=== PATIENT | male | born 1955 | race Two or more races ===

== ENCOUNTER 2019-01-14 12:21 | Inpatient (IN) | payer OTHER ==
[2019-01-14] MEDS ORDERED: NS 0.9% 1000 ML** 1,000 ML IV ONE (12:31)
--- NOTE | 2019-01-14 12:45 | ED ---
HPI Chest Pain - HPI Summary HPI Summary: A 63 y/o male brought in by [facility] ambulance presents to [facility] with a chief complaint of chest pain since 01/11/19. At triage the patient rated his pain as a 0/10 in severity. Per EMS, the patient c/o N/V, SOB and cough. He reports that his legs swelling are normal for him, but his left leg is colored darker than usual. His left leg is usually darker than his right leg after he had surgery on it, but now it is even darker than usual. The patient has been coughing up phlegm. He has a Hx of liver and cardiac disease, taking NTG when he has his chest pain. Deep breaths aggravate his pain. He denies taking NTG on 01/14/19. His PCP is Dr. Molina at [facility]. - History of Current Complaint Hx Obtained From: Patient, Family/Reading Intervention Teacher, EMS Onset/Duration: Started Days Ago, Still Present Timing: Constant, Lasting Days Initial Severity: Mild Current Severity: Mild Pain Intensity: 0 Pain Scale Used: 0-10 Numeric Chest Pain Location: Diffuse Chest Pain Radiates: No Character: Cough, Productive Aggravating Factor(s): Nothing Alleviating Factor(s): Nothing Associated Signs and Symptoms: Positive: Shortness of Breath, Swelling, Nausea, Cough, Productive Cough, Vomiting - Allergy/Home Medications Allergies/Adverse Reactions: Allergies Allergy/AdvReac Type Severity Reaction Status Date / Time No Known Allergies Allergy Verified 10/12/13 04:43 Home Medications: Home Medications Azelastine 0.15% NASAL(NF) [Astepro 0.15% NASAL (NF)] 1 spray BOTH NARES DAILY PRN 01/14/19 [History Confirmed 01/14/19] Calcipotriene 0.005 % TOPICAL DAILY 01/14/19 [History Confirmed 01/14/19] Cholecalciferol TAB* [Vitamin D TAB*] 2,000 units PO DAILY 01/14/19 [History Confirmed 01/14/19] Fluocinonide 0.05% CM (NF) [Lidex 0.05% CREAM (NF)] 1 applic TOPICAL DAILY 01/14 [History Confirmed 01/14/19] Fluticasone Furoate [Arnuity Ellipta] 100 mcg INH DAILY 01/14/19 [History Confirmed 01/14/19] Folic Acid TAB* [Folvite TAB*] 1 mg PO DAILY 01/14/19 [History Confirmed ] Gabapentin CAP(*) [Neurontin 300 CAP(*)] 300 mg PO QPM 01/14/19 [History Confirmed 01/14/19] LORazepam TAB(*) [Ativan 0.5 MG TAB (*)] 0.5 - 1 mg PO TID PRN 01/14/19 [ History Confirmed 01/14/19] Multivitamins/Minerals TAB* [Theragran/minerals TAB*] 1 tab PO DAILY 01/14/19 [ History Confirmed 01/14/19] Nitroglycerin TAB 0.3 MG* 0.3 mg SL Q5M PRN 01/14/19 [History Confirmed 01/14/19 ] Sertraline* [Zoloft*] 25 mg PO DAILY 01/14/19 [History Confirmed 01/14/19] Ursodiol 250 mg PO DAILY 01/14/19 [History Confirmed 01/14/19] Vitamin B Complex CAP* [B Complex CAP*] 1 cap PO DAILY 01/14/19 [History Confirmed 01/14/19] amLODIPine TAB* [Norvasc 5 mg TAB*] 2.5 mg PO DAILY 01/14/19 [History Confirmed 01/14/19] fentaNYL PATCH 25 MCG/HR* [Duragesic PATCH 25 Mcg/Hr*] 25 mcg TRANSDERM Q72H 03/30 [History Confirmed 01/14/19] PMH/Surg Hx/FS Hx/Imm Hx Endocrine/Hematology History: Reports: Hx Blood Disorders - thrombocytopenia, Hx Unexplained Bleeding - epistaxis Denies: Hx Diabetes Cardiovascular History: Reports: Hx Angina, Hx Hypertension Respiratory History: Reports: Other Respiratory Problems/Disorders - Coughing, Pt states hx of SOB. Denies: Hx Asthma, Hx Chronic Obstructive Pulmonary Disease (COPD) GI History: Reports: Hx Gastroesophageal Reflux Disease, Other GI Disorders - esophageal varacies Musculoskeletal History: Reports: Hx Fibromyalgia - Mostly in legs Neurological History: Reports: Hx Seizures - Surgical History Surgery Procedure, Year, and Place: banding for esophageal varacies Infectious Disease History: No Infectious Disease History: Denies: Traveled Outside the [place] in Last 30 Days - Family History Known Family History: Negative: Blood Disorder - Social History Alcohol Use: No current alcohol use Substance Use Type: Reports: None Hx Tobacco Use: Yes Amount Used/How Often: 1/2 pk per day Have You Smoked in the Last Year: Yes Review of Systems Positive: Chest Pain Positive: Shortness Of Breath, Cough Positive: Vomiting, Nausea Positive: Edema, Other - Positive: dark left leg All Other Systems Reviewed And Are Negative: Yes Physical Exam - Summary Physical Exam Summary: Appearance: The patient is well-nourished in no acute distress and in no acute pain. Skin: The skin is warm and dry and skin color reflects adequate perfusion. HEENT: The head is normocephalic and atraumatic. The pupils are equal and reactive. The conjunctivae are clear and without drainage. Nares are patent and without drainage. Mouth reveals moist mucous membranes and the throat is without erythema and exudate. The external ears are intact. The ear canals are patent and without drainage. The tympanic membranes are intact. Neck: The neck is supple with full range of motion and non-tender. There are no carotid bruits. There is no neck vein distension. Respiratory: Chest is non-tender. Coarse crackles and rhonchi right lung. Cardiovascular: Heart is regular rate and rhythm. There is no murmur or rub auscultated. Pulses are symmetrical and equal. Abdomen: The abdomen is soft and non-tender. There are normal bowel sounds heard in all four quadrants and there is no organomegaly palpated. Musculoskeletal: There is no back tenderness noted. Extremities are non-tender with full range of motion. Bilateral lower extremities are edematous, left leg purpleish no blanching. Neurological: Patient is alert and oriented to person, place and time. The patient has symmetrical motor strength in all four extremities. Cranial nerves are grossly intact. Deep tendon reflexes are symmetrical and equal in all four extremities. Psychiatric: The patient has an appropriate affect and does not exhibit any anxiety or depression. Triage Information Reviewed: Yes Vital Signs On Initial Exam: Initial Vitals Temp Pulse Resp BP Pulse Ox 99.5 F 81 16 178/89 91 01/14/19 12:37 01/14/19 12:37 01/14/19 12:37 01/14/19 12:37 01/14/19 12:37 Vital Signs Reviewed: Yes Diagnostics - Vital Signs Vital Signs Temp Pulse Resp BP Pulse Ox 01/14/19 12:37 99.5 F 81 16 178/89 91 - Laboratory Result Diagrams: 01/14/19 12:38 01/14/19 12:38 Lab Statement: Any lab studies that have been ordered have been reviewed, and results considered in the medical decision making process. - Radiology CXR Radiology Interpretation Completed By: Radiologist Summary of Radiographic Findings: LOW LUNG VOLUMES, SMALL BIBASILAR INFILTRATES SUGGESTIVE OF ATELECTASIS. ED physician has reviewed this imaging report. 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 He apparently has been feeling weak for a few days not eating well and then today developed some right-sided pleuritic chest pain. He is also somewhat confused according to the daughter. He has a history of alcoholic cirrhosis. He was found to have an increase in the elevation of his bilirubin, an ammonia of the 150 and a thrombocytopenia of 26. Hospitalist service was asked to evaluate him for a likely hepatic encephalopathy. - Diagnoses Provider Diagnoses: Hepatic encephalopathy - Provider Notifications Discussed Care Of Patient With: Garrett Winkler Time Discussed With Above Provider: 15:20 Instructed by Provider To: Admit As Inpatient Discharge - Sign-Out/Discharge Documenting (check all that apply): Patient Departure - admit Patient Received Moderate/Deep Sedation with Procedure: No - Discharge Plan Condition: Fair Disposition: ADMITTED TO [facility] Referrals: Jamar Molina MD [Primary Care Provider] - - Billing Disposition and Condition Condition: FAIR Disposition: Admitted to [facility] - Attestation Statements Document Initiated by Jacquelineibheidi: Yes Documenting Scribe: Harrison Monk Provider For Whom Todd is Documenting (Include Credential): Kenn Padilla MD Scribe Attestation: I, Harrison Monk, scribed for Kenn Padilla MD on 01/14/19 at 1734. Scribe Documentation Reviewed: Yes Provider Attestation: The documentation as recorded by the Harrison duncan accurately reflects the service I personally performed and the decisions made by me, Kenn Padilla MD Status of Scribe Document: Viewed
[2019-01-14 12:47] LABS: Hematocrit 42 % (42-52); Hemoglobin 14.3 g/dl (14.0-18.0); Mean Corpuscular HGB Conc 34 g/dl (31-36); Mean Corpuscular Hemoglobin 31 pg (27-31); Mean Corpuscular Volume 92 fL (80-94); Red Blood Count 4.56 10^6/ul (4.00-5.40); Red Cell Distribution Width 18 % (10.5-15); White Blood Count 3.5 10^3/ul (3.5-10.8)
[2019-01-14 12:51] LABS: INR 2.36 (0.77-1.02)
[2019-01-14 13:03] LABS: ALT 20 U/L (7-52); AST 88 U/L (13-39); Albumin 3.6 g/dL (3.2-5.2); Albumin/Globulin Ratio 1.1 (1-3); Alkaline Phosphatase 97 U/L (34-104); Anion Gap 8 mmol/L (2-11); BUN/Creatinine Ratio 20.3 (8-20); Blood Urea Nitrogen 16 mg/dL (6-24); C Reactive Protein 11.28 mg/L (<8.01); CO2 Carbon Dioxide 25 mmol/L (22-32); Calcium 8.8 mg/dL (8.6-10.3); Chloride 106 mmol/L (101-111); EGFR African American 120.7 (>60); EGFR Non-African American 99.7 (>60); Globulin 3.2 g/dL (2-4); Glucose 158 mg/dL (70-100); Magnesium 1.2 mg/dL (1.9-2.7); Potassium 3.1 mmol/L (3.5-5.0); Sodium 139 mmol/L (135-145); Total Protein 6.8 g/dL (6.4-8.9)
[2019-01-14 13:04] LABS: Troponin I 0.01 ng/mL (<0.04)
[2019-01-14] MEDS ORDERED: Thiamine IV* 100 MG, Folic Acid IV* 1 MG, Multiple Vitamin IV ADULT* 10 ML in NS 0.9% 1... IV ONE (13:13)
[2019-01-14] MEDS ORDERED: Folic Acid IV* 1 MG, Multiple Vitamin IV ADULT* 10 ML in NS 0.9% 1000 ML** 1,000 ML IV ONE ×4 (13:19)
[2019-01-14 13:26] LABS: ABS Basophils 0 10^3/ul (0-0.2); ABS Eosinophils 0 10^3/ul (0-0.6); ABS Lymphocytes 0.9 10^3/ul (1.0-4.8); ABS Monocytes 0.3 10^3/ul (0-0.8); ABS Neutrophils 2.2 10^3/ul (1.5-7.7); ABS Nucleated RBC 0 10^3/ul; Eosinophil % 1.2 %; Lymphocyte % 25.9 %; Mean Platelet Volume 7.7 fL (7.4-10.4); Nucleated Red Blood Cells % 0.1; Platelet Count 26 10^3/ul (150-450)
[2019-01-14] MEDS ORDERED: Magnesium Sulfate 1 GM IV* 1 GM/100 ML BAG IV ONE (13:41)
[2019-01-14 13:44] LABS: TSH (Thyroid Stimulating Horm) 0.55 mcIU/mL (0.34-5.60)
[2019-01-14] MEDS ORDERED: Thiamine TAB* 100 MG TAB PO ONE (14:00)
[2019-01-14 15:45] LABS: Urine Appearance Clear; Urine Bacteria Absent (Absent); Urine Bilirubin Negative (Negative); Urine Blood 1+ (Negative); Urine Color Amber; Urine Glucose 1+(50 mg/dL) (Negative); Urine Ketones Negative (Negative); Urine Nitrite Negative (Negative); Urine Protein Negative (Negative); Urine Red Blood Cell 2+(6-10/hpf) (Absent); Urine Specific Gravity 1.019 (1.010-1.030); Urine Urobilinogen Positive (Negative); Urine White Blood Cell Trace(0-5/hpf) (Absent)
[2019-01-14] MEDS ORDERED: Ondansetron INJ* 2 MG/ML VIAL IV PRN (16:36)
[2019-01-14] MEDS ORDERED: Furosemide IV* 10 MG/ML VIAL (40 MG) IV ONE (16:43)
[2019-01-14] MEDS ORDERED: hydrALAZINE IV* 20 MG/ML VIAL IV SLOW PU PRN (16:43)
[2019-01-14] MEDS ORDERED: LORazepam TAB(*) 0.5 MG PO PRN (16:53)
[2019-01-14] MEDS: KCL 20 MEQ/100 ML IVPREMIX* 20 MEQ/100 ML BAG IV SCH (17:07)
[2019-01-14] MEDS ORDERED: Albuterol/Ipratropium NEB.SOL* Albuterol 2.5 MG/Ipratropium 0.5 MG 3 ML INH PRN (17:21)
[2019-01-14] MEDS: fentaNYL PATCH 25 MCG/HR TRANSDERM SCH ×2 (17:40→21:25)
[2019-01-14 18:12] LABS: Influenza A Molecular NEGATIVE (Negative); Influenza B Molecular NEGATIVE (Negative)
[2019-01-14] MEDS: Gabapentin CAP(*) 300 MG PO SCH (18:41)
--- NOTE | 2019-01-14 19:51 | HP ---
CC: Dr. Jamar Molina * HISTORY AND PHYSICAL: DATE OF ADMISSION: 01/14/19 PRIMARY CARE PROVIDER: Dr. Jamar Molina. ATTENDING PHYSICIAN: Dr. Garrett Winkler * (dictated by Seble Meyer NP). CHIEF COMPLAINT: Shortness of breath for 3 days. HISTORY OF PRESENT ILLNESS: Mr. Mcclure is a 63-year-old male with past medical history of alcoholic cirrhosis, COPD, hypertension, CAD, and chronic back pain who presents to the emergency room today with complaints of 3 days of shortness of breath and chest pain. He is accompanied by his daughter, who provides most of the history. She reports that it is typical for him to have some chest discomfort when taking deep breaths and this has been going on for a number of years. She states that approximately 3 days ago, the patient started vomiting and started to appear ill. He vomited again yesterday and then today as well. During this time, he has had decreased appetite. He tells her that his chest feels tight and when he takes a deep breath he has a sharp pain. She feels as though his symptoms got particularly worse yesterday and so she brought him to the emergency room today. She does admit that she has not been giving him his typical medications since Sunday, except for oxycodone and lorazepam, so he has not received his antihypertensives or his lactulose. She has noticed increased edema in his lower extremities. Additionally, she reports that his left lower extremity typically has a light brown discoloration , though she feels that discoloration is worse at this point. She has noticed increased confusion over the last few days and possibly even some hallucinations. She does report that the other day his blood pressure was around 180/80 and he did suffer from a nosebleed at that time. He has not been wearing his fentanyl patch for the last few days as she removed it and did not replace it. She does note that he does have some confusion at baseline, though feels as though he is significantly worse than his baseline. She was concerned that his symptoms were persistent and so she brought him to the emergency room. In the emergency room, the patient was noted to be hypertensive with systolic pressures into the 170s. He had lab work which revealed an elevated INR, hypokalemia, lactic acidosis, hypomagnesemia. He also was noted to have an elevated bilirubin and ammonia. He had a chest x-ray, which showed some atelectasis, but no pneumonia. Because of the concern for his mental state, the hospitalist service was asked to evaluate for admission. PAST MEDICAL HISTORY: 1. Alcoholic cirrhosis. 2. COPD. 3. Hypertension. 4. CAD. 5. Chronic back pain. PAST SURGICAL HISTORY: 1. Esophageal varices banding, 2008. 2. Tonsillectomy. 3. The daughter reports that he had some sort of vein repair in his left lower extremity as an outpatient late last year. HOME MEDICATIONS: 1. Amlodipine 2.5 mg p.o. daily. 2. Astepro 1 spray both nares daily p.r.n. congestion. 3. Calcipotriene 0.005% topically daily. 4. Cholecalciferol 2000 units p.o. daily. 5. Fentanyl patch 25 mcg transdermal q.72 hours. 6. Fluocinonide cream 1 application topically daily. 7. Fluticasone 100 mcg inhalation daily. 8. Folic acid 1 mg p.o. daily. 9. Furosemide 20 mg p.o. daily. 10. Gabapentin 300 mg p.o. at bedtime. 11. Lactulose 15 mL p.o. daily. 12. Lidocaine patch 1 patch transdermal daily p.r.n. pain. 13. Lorazepam 0.5 to 1 mg p.o. t.i.d. p.r.n. anxiety. 14. Multivitamin 1 tab p.o. daily. 15. Nitroglycerin 0.3 sublingual q.5 minutes p.r.n. chest pain. 16. Oxycodone 10 mg p.o. q.4 hours p.r.n. pain. 17. Pantoprazole 40 mg p.o. daily. 18. Sertraline 25 mg p.o. daily. 19. Ursodiol 250 mg p.o. daily. 20. Vitamin B complex 1 cap p.o. daily. ALLERGIES: No known drug allergies. FAMILY HISTORY: Unobtainable. SOCIAL HISTORY: The patient is a former smoker and currently smokes an e- cigarette. The daughter denies any alcohol or recreational drug use. 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 His daughter, Leslie, will be his surrogate decision maker in the event he is unable to make his own decisions. REVIEW OF SYSTEMS: An 11-point review of systems was performed and all the pertinent positive and negative findings are in the HPI. All other systems are negative. PHYSICAL EXAMINATION GENERAL: Mr. Mcclure is a well-developed, well-nourished, overweight white male, lying in bed, in no acute distress. He appears his stated age. VITAL SIGNS: Temp 99.5, heart rate 68, respiratory rate 19, oxygen saturation 95% on 2 L nasal cannula, blood pressure 150/88. HEENT: Head is atraumatic, normocephalic. Visual mcneal are grossly intact. Pupils are equal, round, and reactive to light and accommodation. Extraocular movements intact. Sclerae with mild icterus. Oral mucous membranes moist and without lesions. NECK: Full range of motion. Thyroid not palpable. Trachea at midline. No lymphadenopathy. RESPIRATORY: Symmetrical chest expansion. No chest wall deformities. Lungs rhonchorous to auscultation throughout. No rhonchi or rales. CARDIOVASCULAR: Regular rate and rhythm. S1, S2 present. No murmurs, rubs, or gallops. ABDOMEN: Large, round, but soft, nontender to palpation. Bowel sounds normoactive throughout. Hepatomegaly is present. EXTREMITIES: Skin warm and smooth bilaterally. Left lower extremity has moderate brown discoloration. There is +2 pitting edema to bilateral feet. Pedal pulses 1+ bilaterally. NEUROLOGIC: Drowsy, but arousable. Orientation cannot be determined. Cranial nerves II through XII are grossly intact. Moves all extremities. SKIN: Grossly intact without lesions. DIAGNOSTIC STUDIES/LAB DATA: WBC 3.5, RBC 4.56, hemoglobin 14.3, hematocrit 42 , platelets 26. INR 2.36. Sodium 139, potassium 3.1, chloride 106, carbon dioxide 25, BUN 15, creatinine 0.79, glucose 158, lactic acid 2.4, magnesium 1.2. Total bili 4.6, AST 88, ammonia 149, CRP 11. BNP 99. Urinalysis positive for urobilinogen, rbc's, and glucose. Chest x-ray reads as low lung volumes, small bibasilar infiltrates suggestive of atelectasis. EKG shows normal sinus rhythm with an incomplete right bundle-branch block and a rate of 77, QTc 479, Q waves present in II and aVF. There is some ST depression in V2 through V5. This was present to a lesser extent in 2014. There is also some mild elevation in aVR. Again, this was present in 2014. ASSESSMENT AND PLAN: Mr. Mcclure is a 63-year-old male with past medical history of alcoholic cirrhosis, chronic obstructive pulmonary disease, hypertension, chronic back pain, and coronary artery disease who presents to the emergency room today with shortness of breath and confusion and was found to have an elevated ammonia level. The patient will be admitted on observation for: 1. Hepatic encephalopathy. The patient's ammonia level is 149, which is the highest it has been according to our records. He does have a MELD score of 22, indicating a 7% to 10% 90-day mortality rate. I think this episode is likely due to the fact that the daughter has not given him his lactulose for 3 days. He does have hepatomegaly on exam. His bilirubin is also elevated, higher than it has been since 2013, AST is mildly elevated, but ALT and alk phos are normal. He additionally has edema to bilateral lower extremities, which is secondary to his chronic liver disease and the fact that the daughter has not given him his furosemide in the last few days. I have ordered 40 mg of IV Lasix now as well as lactulose t.i.d. in an attempt to decrease his ammonia level. I will recheck his ammonia in the morning. 2. Thrombocytopenia. The patient's platelet count is 26, which is the lowest it has been, according to our records. This is secondary to his chronic liver disease. The daughter did note that the patient had a nosebleed the other day when his blood pressure was high, so at this point I will avoid any pharmacological DVT prophylaxis. We will continue to monitor him for bleeding as he does have a history of esophageal varices in the past. 3. Hypertensive urgency. The patient's blood pressures are up into the 170s/ 90s in the emergency room. Again, this is likely secondary to the daughter not giving the patient his typical medications. He was only on 2.5 mg of amlodipine at home, which I think is certainly far too low of a dose, so I have increased that to 5 mg at this point, though he could likely easily go up to 10 mg. I have added hydralazine for systolic pressures greater than 170, though I anticipate that the furosemide will also aid in decreasing his pressures. 4. Acute bronchitis. The patient has had some shortness of breath and tightness when taking a deep breath. His lungs are very rhonchorous on exam. At this point, I do not think this represents a chronic obstructive pulmonary disease exacerbation as there has been no change in sputum production, and I think that this will likely be a viral bronchitis, so we will monitor him at this point. I will add DuoNebs should he require them. I will also note that the patient's fluticasone is nonformulary. I will place him on Dulera at this point. 5. Elevated lactic acid. I do not think that this represents an infectious process at this time. The patient is not meeting sepsis criteria and does not have an elevated white count. He was given 1 bag of IV fluids in the emergency room. I suspect that this elevated lactic acid is secondary to his chronic liver disease and overall decompensated state. I will recheck a lactic acid this afternoon. 6. Chronic obstructive pulmonary disease. Again, I do not think the patient has an exacerbation at this point. I have placed him on Dulera and DuoNebs. 7. Coronary artery disease. The patient is not on any aspirin or statin and it is not clear why. I will check a lipid panel in the morning, though he shows no evidence of any acute cardiac process at this point. 8. Chronic back pain. The patient has not been wearing a fentanyl patch for the last couple days as the patient's daughter removed it and did not apply a new one. I am somewhat surprised that the patient has not gone through opioid withdrawal. We will place a new patch today, though at this point I will hold his oxycodone to avoid any oversedation. 9. FEN: Again, the patient received 1 bag of normal saline in the emergency room. I would like to avoid any further IV fluids due to the presence of edema. He was hypokalemic and hypomagnesemic in the emergency room and potassium and magnesium have been repleted. I have ordered a heart healthy diet. 10. Code status: The patient will be a full code. 11. DVT prophylaxis: According to the DVT Risk Assessment, the patient scores a 4, putting him at high risk. As discussed above, the patient's platelet count is quite low and he is at high risk for bleeding. Because of that and his elevated INR, I have ordered SCDs only at this point. TIME SPENT: Approximately 65 minutes were spent on this admission, greater than half of that time spent [id number] with the patient and his daughter obtaining my history, performing my physical exam, and reviewing the plan of care. This case has been reviewed with my attending, Dr. Winkler, who is in agreement with the plan of care. SEBLE MEYER, FLAG MAKER [id number]/CPS #: [id number] SUSANA
[2019-01-14] MEDS: Mometasone/Formoter 200/5 MDI INH SCH (20:29)
[2019-01-14 22:04] LABS: Alcohol < 10 mg/dL (<10)
[2019-01-15] MEDS ORDERED: KCL 20 MEQ/100 ML IVPREMIX* 20 MEQ/100 ML BAG ONE (00:05)
[2019-01-15] MEDS: KCL 20 MEQ/100 ML IVPREMIX* 20 MEQ/100 ML BAG IV SCH (00:06)
[2019-01-15 06:05] LABS: ABS Basophils 0 10^3/ul (0-0.2); ABS Eosinophils 0.1 10^3/ul (0-0.6); ABS Lymphocytes 0.8 10^3/ul (1.0-4.8); ABS Monocytes 0.3 10^3/ul (0-0.8); ABS Neutrophils 1.2 10^3/ul (1.5-7.7); ABS Nucleated RBC 0 10^3/ul; Eosinophil % 2.4 %; Hematocrit 39 % (42-52); Hemoglobin 13.5 g/dl (14.0-18.0); Lymphocyte % 34.1 %; Mean Corpuscular HGB Conc 34 g/dl (31-36); Mean Corpuscular Hemoglobin 32 pg (27-31); Mean Corpuscular Volume 92 fL (80-94); Mean Platelet Volume 7.9 fL (7.4-10.4); Nucleated Red Blood Cells % 0; Platelet Count 24 10^3/ul (150-450); Red Blood Count 4.28 10^6/ul (4.00-5.40); Red Cell Distribution Width 18 % (10.5-15); White Blood Count 2.3 10^3/ul (3.5-10.8)
[2019-01-15 06:11] LABS: INR 2.25 (0.77-1.02)
[2019-01-15 06:23] LABS: Albumin/Globulin Ratio 1.1 (1-3); Calcium 8.1 mg/dL (8.6-10.3); EGFR African American 162.6 (>60); EGFR Non-African American 134.4 (>60); Globulin 2.8 g/dL (2-4); HDL Cholesterol 29.6 mg/dL; Total Bilirubin 4.6 mg/dL (0.2-1.0); Total Protein 5.8 g/dL (6.4-8.9)
[2019-01-15 06:26] LABS: Potassium 2.7 mmol/L (3.5-5.0)
[2019-01-15] MEDS ORDERED: Potassium Chlor TAB* 20 MEQ TAB.ER PO ONE (07:31)
[2019-01-15] MEDS ORDERED: Magnesium Sulfate 2 GM IV* 2 GM/50 ML BAG IVPB ONE (07:32)
[2019-01-15] MEDS: Mometasone/Formoter 200/5 MDI INH SCH ×2 (07:37→19:50)
[2019-01-15] MEDS ORDERED: URSODIOL 250 MG PO SCH (09:00)
[2019-01-15] MEDS: amLODIPine TAB* 5 MG PO SCH (09:28)
[2019-01-15] MEDS: Sertraline* 50 MG TAB PO SCH (09:28)
[2019-01-15] MEDS: Pantoprazole TAB * 40 MG TAB PO SCH (09:28)
[2019-01-15] MEDS: Folic Acid TAB* 1 MG PO SCH (09:28)
[2019-01-15] MEDS: Multivitamins/Minerals TAB PO SCH (09:28)
[2019-01-15] MEDS: KCL 10 MEQ/50 ML IVPREMIX* 10 MEQ/50 ML BAG IV SCH ×2 (09:29→12:03)
[2019-01-15] MEDS: Acetaminophen TAB* 325 MG PO PRN (10:35)
[2019-01-15] MEDS: oxyCODONE TAB* 5 MG TAB PO PRN ×2 (17:57→23:30)
[2019-01-15] MEDS: Gabapentin CAP(*) 300 MG PO SCH (17:57)
--- NOTE | 2019-01-15 18:56 | PN ---
Subjective Date of Service: 01/15/19 Interval History: Patient seen and examined. Complaint of headache (which he has often at home) and some chronic diffuse body pains, denies SOB, no chest pin, no fevers or chills. No abdominal pain. Objective Active Medications: Acetaminophen (Tylenol Tab*) 650 mg PO Q6H PRN PRN Reason: FEVER/HEADACHE Last Admin: 01/15/19 10:35 Dose: 650 mg Albuterol/Ipratropium (Duoneb (Albuterol 2.5 Mg/Ipratropium 0.5 Mg)) 1 neb INH Q4H PRN PRN Reason: SOB/WHEEZING Amlodipine Besylate (Norvasc Tab*) 5 mg PO DAILY [facility] Last Admin: 01/15/19 09:28 Dose: 5 mg Fentanyl (Duragesic Patch 25 Mcg/Hr*) 25 mcg TRANSDERM Q72H [facility] Last Admin: 01/14/19 21:25 Dose: Not Given Folic Acid (Folvite Tab*) 1 mg PO DAILY [facility] Last Admin: 01/15/19 09:28 Dose: 1 mg Gabapentin (Neurontin Cap(*)) 300 mg PO QPM [facility] Last Admin: 01/15/19 17:57 Dose: 300 mg Hydralazine HCl (Apresoline Iv*) 5 mg IV SLOW PU Q6H PRN PRN Reason: BLOOD PRESSURE Lactulose (Lactulose*) 30 ml PO TID [facility] Last Admin: 01/15/19 15:53 Dose: 30 ml Lorazepam (Ativan Tab(*)) 0.5 mg PO TID PRN PRN Reason: ANXIETY Last Admin: 01/14/19 21:28 Dose: 0.5 mg Mometasone Furoate/Formoterol Fumar (Dulera 200/5 Mdi*) 2 puff INH BID [facility] Last Admin: 01/15/19 07:37 Dose: 2 puff Multivitamins/Minerals (Theragran/Minerals Tab*) 1 tab PO DAILY [facility] Last Admin: 01/15/19 09:28 Dose: 1 tab Ondansetron HCl (Zofran Inj*) 4 mg IV Q4H PRN PRN Reason: NAUSEA/VOMITING Oxycodone HCl (Roxycodone Tab*) 5 mg PO Q6H PRN PRN Reason: breakthrough pain Last Admin: 01/15/19 17:57 Dose: 5 mg Pantoprazole Sodium (Protonix Tab*) 40 mg PO DAILY [facility] Last Admin: 01/15/19 09:28 Dose: 40 mg Pneumococcal Polyvalent Vaccine (Pneumococcal Vac 23-Polyvalent*) 0.5 ml IM .ONCE ONE Stop: 01/16/19 09:01 Sertraline HCl (Zoloft*) 25 mg PO DAILY [facility] Last Admin: 01/15/19 09:28 Dose: 25 mg Ursodiol (Agnes 250(Nf)) 250 mg PO DAILY [facility] Last Admin: 01/15/19 09:43 Dose: Not Given Vital Signs - 8 hr 01/15/19 01/15/19 01/15/19 13:42 14:03 17:57 Temperature 98.6 F Pulse Rate 80 Respiratory 20 16 18 Rate Blood Pressure 162/78 (mmHg) O2 Sat by Pulse 96 Oximetry Oxygen Devices in Use Now: None Appearance: alert, NAD Eyes: No Scleral Icterus, PERRLA Ears/Nose/Mouth/Throat: NL Teeth, Lips, Gums Neck: NL Appearance and Movements; NL JVP, Trachea Midline Respiratory: Symmetrical Chest Expansion and Respiratory Effort, Clear to Auscultation Cardiovascular: NL Sounds; No Murmurs; No JVD Abdominal: NL Sounds; No Tenderness; No Distention Extremities: - - significant discoloration to LLE/alberts at baseline with bipedal edema Neurological: NL Sensation, NL Muscle Strength and Tone Nutrition: Taking PO's Result Diagrams: 01/15/19 05:34 01/15/19 05:34 Microbiology and Other Data: Microbiology 01/14/19 15:33 Urine Culture - Final Urine No Growth (<1,000 CFU/mL) 01/14/19 17:50 Influenza Types A,B Antigen - Final Nasopharyngeal Specimen received for Influenza A/B Molecular testing Assess/Plan/Problems-Billing Assessment: This is a 63 year old with hx of cirrhosis, COPD, CAD, HTN that presents with acute encephalopathy and cough. - Patient Problems (1) Hepatic encephalopathy Code(s): K72.90 - HEPATIC FAILURE, UNSPECIFIED WITHOUT COMA SNOMED Code(s): 99740994 Comment: - In presence of ETOH abuse and cirrhosis with rising ammonia - Restarted aldactone and lasix - Continue lactulose for elevated ammonia and trend (2) Thrombocytopenia Code(s): D69.6 - THROMBOCYTOPENIA, UNSPECIFIED SNOMED Code(s): 184459799 Comment: - In presence of liver disease iwth elevated INR - Current MELD score is 22 - Follow labs and monitor for bleeding - No heparin (3) Hypertensive urgency Code(s): I16.0 - HYPERTENSIVE URGENCY SNOMED Code(s): 219980559 Comment: - Non compliance with BP meds at home - BP stable today (4) COPD with exacerbation Code(s): J44.1 - CHRONIC OBSTRUCTIVE PULMONARY DISEASE W (ACUTE) EXACERBATION SNOMED Code(s): 457529954 Comment: - Nebs, inhalers, no white count and no fever, will hold off on atbx - May consider steroids if no improvement in AM (5) History of coronary artery disease Code(s): Z86.79 - PERSONAL HISTORY OF OTHER DISEASES OF THE CIRCULATORY SYSTEM SNOMED Code(s): 348803178 Comment: - Stable, no chest pain (6) DVT prophylaxis Code(s): VGM5016 - SNOMED Code(s): 372536886 Comment: - Ambulate, hig risk for bleeding (7) Full code status Code(s): Z78.9 - OTHER SPECIFIED HEALTH STATUS SNOMED Code(s): 865091515 Status and Disposition: Inpatient. DC home when stable.
[2019-01-15] MEDS: fentaNYL Patch Check Q Shift 1 NOTE FOLLOW UP SCH (19:16)
[2019-01-16] MEDS: oxyCODONE TAB* 5 MG TAB PO PRN (06:32)
[2019-01-16 06:36] LABS: ABS Basophils 0 10^3/ul (0-0.2); ABS Eosinophils 0.1 10^3/ul (0-0.6); ABS Lymphocytes 0.7 10^3/ul (1.0-4.8); ABS Monocytes 0.3 10^3/ul (0-0.8); ABS Neutrophils 1.6 10^3/ul (1.5-7.7); ABS Nucleated RBC 0 10^3/ul; Eosinophil % 2.4 %; Hematocrit 40 % (42-52); Hemoglobin 13.5 g/dl (14.0-18.0); Lymphocyte % 26.6 %; Mean Corpuscular HGB Conc 34 g/dl (31-36); Mean Corpuscular Hemoglobin 31 pg (27-31); Mean Corpuscular Volume 92 fL (80-94); Mean Platelet Volume 8.2 fL (7.4-10.4); Nucleated Red Blood Cells % 0.1; Platelet Count 27 10^3/ul (150-450); Red Blood Count 4.31 10^6/ul (4.00-5.40); Red Cell Distribution Width 18 % (10.5-15); White Blood Count 2.7 10^3/ul (3.5-10.8)
[2019-01-16] MEDS: fentaNYL Patch Check Q Shift 1 NOTE FOLLOW UP SCH ×2 (06:49→19:43)
[2019-01-16 06:50] LABS: Albumin 3.1 g/dL (3.2-5.2); Albumin/Globulin Ratio 1.1 (1-3); BUN/Creatinine Ratio 22.4 (8-20); Calcium 8.2 mg/dL (8.6-10.3); EGFR African American 172.3 (>60); EGFR Non-African American 142.4 (>60); Globulin 2.8 g/dL (2-4); Potassium 3.2 mmol/L (3.5-5.0); Total Bilirubin 3.9 mg/dL (0.2-1.0); Total Protein 5.9 g/dL (6.4-8.9)
[2019-01-16] MEDS: Mometasone/Formoter 200/5 MDI INH SCH ×2 (08:17→21:38)
[2019-01-16 08:39] LABS: INR 2.18 (0.77-1.02)
[2019-01-16 08:40] LABS: Hematocrit 41 % (42-52); Hemoglobin 13.9 g/dl (14.0-18.0); Mean Corpuscular HGB Conc 34 g/dl (31-36); Mean Corpuscular Hemoglobin 31 pg (27-31); Mean Corpuscular Volume 93 fL (80-94); Red Blood Count 4.43 10^6/ul (4.00-5.40); Red Cell Distribution Width 18 % (10.5-15); White Blood Count 2.9 10^3/ul (3.5-10.8)
[2019-01-16] MEDS ORDERED: Pneumococcal *Vac Polyvalent 0.5 ML VIAL IM ONE (09:00)
[2019-01-16 09:05] LABS: Albumin 3.2 g/dL (3.2-5.2); Albumin/Globulin Ratio 1.1 (1-3); BUN/Creatinine Ratio 21.3 (8-20); Calcium 8.3 mg/dL (8.6-10.3); EGFR African American 162.6 (>60); EGFR Non-African American 134.4 (>60); Globulin 2.9 g/dL (2-4); Magnesium 1.6 mg/dL (1.9-2.7); Potassium 3.5 mmol/L (3.5-5.0); Total Bilirubin 4.3 mg/dL (0.2-1.0); Total Protein 6.1 g/dL (6.4-8.9)
[2019-01-16] MEDS: Sertraline* 50 MG TAB PO SCH (09:22)
[2019-01-16] MEDS: Multivitamins/Minerals TAB PO SCH (09:22)
[2019-01-16] MEDS: Pantoprazole TAB * 40 MG TAB PO SCH (09:22)
[2019-01-16] MEDS: Folic Acid TAB* 1 MG PO SCH (09:22)
[2019-01-16] MEDS: amLODIPine TAB* 5 MG PO SCH (09:22)
[2019-01-16] MEDS: Ursodiol CAP* 300 MG PO SCH (09:35)
[2019-01-16 09:54] LABS: ABS Basophils 0 10^3/ul (0-0.2); ABS Eosinophils 0.1 10^3/ul (0-0.6); ABS Lymphocytes 0.8 10^3/ul (1.0-4.8); ABS Monocytes 0.3 10^3/ul (0-0.8); ABS Neutrophils 1.8 10^3/ul (1.5-7.7); ABS Nucleated RBC 0 10^3/ul; Eosinophil % 2.4 %; Lymphocyte % 26.9 %; Mean Platelet Volume 8.1 fL (7.4-10.4); Nucleated Red Blood Cells % 0.1; Platelet Count 31 10^3/ul (150-450)
--- NOTE | 2019-01-16 15:54 | PN ---
Subjective Date of Service: 01/16/19 Interval History: Patient seen and examined. No complaints, headache improved. Denies fever or chills, no abdominal pain. Tolerating PO. Objective Active Medications: Acetaminophen (Tylenol Tab*) 650 mg PO Q6H PRN PRN Reason: FEVER/HEADACHE Last Admin: 01/15/19 10:35 Dose: 650 mg Albuterol/Ipratropium (Duoneb (Albuterol 2.5 Mg/Ipratropium 0.5 Mg)) 1 neb INH Q4H PRN PRN Reason: SOB/WHEEZING Amlodipine Besylate (Norvasc Tab*) 5 mg PO DAILY [facility] Last Admin: 01/16/19 09:22 Dose: 5 mg Fentanyl (Duragesic Patch 25 Mcg/Hr*) 25 mcg TRANSDERM Q72H [facility] Last Admin: 01/14/19 21:25 Dose: Not Given Folic Acid (Folvite Tab*) 1 mg PO DAILY [facility] Last Admin: 01/16/19 09:22 Dose: 1 mg Gabapentin (Neurontin Cap(*)) 300 mg PO QPM [facility] Last Admin: 01/15/19 17:57 Dose: 300 mg Hydralazine HCl (Apresoline Iv*) 5 mg IV SLOW PU Q6H PRN PRN Reason: BLOOD PRESSURE Lactulose (Lactulose*) 30 ml PO TID [facility] Last Admin: 01/16/19 13:46 Dose: 30 ml Lorazepam (Ativan Tab(*)) 0.5 mg PO TID PRN PRN Reason: ANXIETY Last Admin: 01/14/19 21:28 Dose: 0.5 mg Magnesium Oxide (Magox 400 Tab*) 400 mg PO DAILY [facility] Mometasone Furoate/Formoterol Fumar (Dulera 200/5 Mdi*) 2 puff INH BID [facility] Last Admin: 01/16/19 08:17 Dose: 2 puff Multivitamins/Minerals (Theragran/Minerals Tab*) 1 tab PO DAILY [facility] Last Admin: 01/16/19 09:22 Dose: 1 tab Ondansetron HCl (Zofran Inj*) 4 mg IV Q4H PRN PRN Reason: NAUSEA/VOMITING Oxycodone HCl (Roxycodone Tab*) 5 mg PO Q6H PRN PRN Reason: breakthrough pain Last Admin: 01/16/19 06:32 Dose: 5 mg Pantoprazole Sodium (Protonix Tab*) 40 mg PO DAILY [facility] Last Admin: 01/16/19 09:22 Dose: 40 mg Pharmacy Profile Note (Fentanyl Patch Check Q Shift) 1 note FOLLOW UP 0700, 1900 [facility] Last Admin: 01/16/19 06:49 Dose: 1 note Sertraline HCl (Zoloft*) 25 mg PO DAILY [facility] Last Admin: 01/16/19 09:22 Dose: 25 mg Ursodiol (Actigall Cap*) 300 mg PO DAILY [facility] Last Admin: 01/16/19 09:35 Dose: Not Given Vital Signs - 8 hr 01/16/19 01/16/19 01/16/19 08:00 08:18 08:35 Temperature Pulse Rate 68 Respiratory 16 16 16 Rate Blood Pressure (mmHg) O2 Sat by Pulse 92 Oximetry 01/16/19 01/16/19 01/16/19 10:50 13:39 13:49 Temperature 98.2 F 98 F Pulse Rate 68 75 Respiratory 20 16 Rate Blood Pressure 153/72 190/90 154/70 (mmHg) O2 Sat by Pulse 91 96 Oximetry 01/16/19 15:28 Temperature 97.8 F Pulse Rate 72 Respiratory 22 Rate Blood Pressure 164/75 (mmHg) O2 Sat by Pulse 94 Oximetry Oxygen Devices in Use Now: None Appearance: alert, NAD Eyes: No Scleral Icterus, PERRLA Ears/Nose/Mouth/Throat: Mucous Membranes Moist Neck: NL Appearance and Movements; NL JVP, Trachea Midline Respiratory: Symmetrical Chest Expansion and Respiratory Effort, - - scattered rhonchi, no rales, no wheeze Cardiovascular: NL Sounds; No Murmurs; No JVD, RRR Abdominal: NL Sounds; No Tenderness; No Distention Extremities: - - dark discoloration LLE, +2 PP Neurological: Alert and Oriented x 3, NL Gait, NL Muscle Strength and Tone Nutrition: Taking PO's Result Diagrams: 01/16/19 08:08 01/16/19 08:08 Microbiology and Other Data: Microbiology 01/14/19 15:33 Urine Culture - Final Urine No Growth (<1,000 CFU/mL) 01/14/19 17:50 Influenza Types A,B Antigen - Final Nasopharyngeal Specimen received for Influenza A/B Molecular testing Assess/Plan/Problems-Billing Assessment: This is a 63 year old with hx of cirrhosis, COPD, CAD, HTN that presents with acute encephalopathy and cough. - Patient Problems (1) Hepatic encephalopathy Code(s): K72.90 - HEPATIC FAILURE, UNSPECIFIED WITHOUT COMA SNOMED Code(s): 90465111 Comment: - In presence of ETOH abuse and cirrhosis with elevated ammonia - Restarted aldactone and lasix - Continue lactulose for elevated ammonia which is now at 91 - LFTs as above, approx at baseline - Will consult GI, patient used to see Dr. Campuzano in the past. Will need close outpatient follow up (2) Thrombocytopenia Code(s): D69.6 - THROMBOCYTOPENIA, UNSPECIFIED SNOMED Code(s): 820834351 Comment: - In presence of liver disease with elevated INR - Current MELD score is 22 - PLTS 31 today (3) Hypertensive urgency Code(s): I16.0 - HYPERTENSIVE URGENCY SNOMED Code(s): 841910728 Comment: - Non compliance with BP meds at home - BP stable today, PRN hydralazine, continue norvasc (4) COPD with exacerbation Code(s): J44.1 - CHRONIC OBSTRUCTIVE PULMONARY DISEASE W (ACUTE) EXACERBATION SNOMED Code(s): 196583664 Comment: - Nebs, inhalers, no white count and no fever, will hold off on atbx - No wheeze, continue pulmonary toilet. No indication for steroids at this time (5) History of coronary artery disease Code(s): Z86.79 - PERSONAL HISTORY OF OTHER DISEASES OF THE CIRCULATORY SYSTEM SNOMED Code(s): 831345081 Comment: - Stable, no chest pain (6) DVT prophylaxis Code(s): WNB4351 - SNOMED Code(s): 904950489 Comment: - Ambulate, hig risk for bleeding (7) Full code status Code(s): Z78.9 - OTHER SPECIFIED HEALTH STATUS SNOMED Code(s): 216184428 Status and Disposition: Inpatient. DC home when stable. Likely in AM, refer to [facility] and outpatient GI.
[2019-01-16] MEDS: Gabapentin CAP(*) 300 MG PO SCH (18:01)
[2019-01-16] MEDS: Magnesium Oxide TAB* 400 MG PO SCH (18:02)
[2019-01-16] MEDS: Acetaminophen TAB* 325 MG PO PRN (20:05)
[2019-01-17] MEDS: oxyCODONE TAB* 5 MG TAB PO PRN ×2 (01:55→10:25)
[2019-01-17] MEDS: fentaNYL Patch Check Q Shift 1 NOTE FOLLOW UP SCH (06:37)
[2019-01-17] MEDS: Mometasone/Formoter 200/5 MDI INH SCH (07:50)
[2019-01-17] MEDS: Ursodiol CAP* 300 MG PO SCH (10:22)
[2019-01-17] MEDS: Multivitamins/Minerals TAB PO SCH (10:22)
[2019-01-17] MEDS: Sertraline* 50 MG TAB PO SCH (10:22)
[2019-01-17] MEDS: Folic Acid TAB* 1 MG PO SCH (10:22)
[2019-01-17] MEDS: Pantoprazole TAB * 40 MG TAB PO SCH (10:22)
[2019-01-17] MEDS: Magnesium Oxide TAB* 400 MG PO SCH (10:22)
[2019-01-17] MEDS: amLODIPine TAB* 5 MG PO SCH (10:23)
[2019-01-17] MEDS: Acetaminophen TAB* 325 MG PO PRN (10:26)
[2019-01-17 11:46] VITALS: BP 150/76
--- NOTE | 2019-01-19 04:34 | DS ---
CC: Dr. Molina; Dr. Chu Hoskins * DISCHARGE SUMMARY: DATE OF ADMISSION: 01/14/19 DATE OF DISCHARGE: 01/17/19 PRIMARY CARE PROVIDER: Dr. Molina. MY ATTENDING FOR TODAY: Dr. Inna Khanna.* (DICTATED BY ANGE DURAND NP) HOSPITAL COURSE: Please refer to admission H and P on 01/14/19; however, in short, this is a 64-year-old male patient with past medical history of alcoholic cirrhosis, COPD, hypertension, CAD, and chronic pain, who presented to the emergency department with some altered mental status, shortness of breath , and chest pain. He is Bangladeshi speaking. His daughter was at the bedside for most of his admission. Per the daughter's report, the patient became acutely ill with some gastroenteritis-like symptoms with some nausea and vomiting, also with some additional discoloration to the right lower extremity, which he has at baseline but she noted that it seemed worse, and then although he does have baseline confusion, his situation seemed worse, so for this reason he was admitted. The patient was admitted for hepatic encephalopathy with an increased ammonia level. He had a MELD score of 22. The daughter did report that because the patient was sick, she did not give him his lactulose and was not giving him his diuretics. The patient was stabilized, restarted on his home medications. His mentation improved. His chest x-ray initially showed some atelectasis. The patient had required oxygen when he first arrived; however, he was oxygenating well within 24 hours and did not require any further respiratory care. The patient was also seen by Dr. Hoskins of [place]. The patient used to see Dr. Campuzano of for his alcoholic hepatitis; however, he has not had followup in some time. Dr. Hoskins did briefly evaluate the patient and determined the patient was back to his baseline, could be discharged to home with outpatient followup. The patient was also very hypertensive at admission, which was likely also attributable to the lack of taking his anti- hypertensives in the presence of his vomiting. DISCHARGE DIAGNOSES: 1. Altered mental status with acute hepatic encephalopathy, now resolved. 2. Chronic thrombocytopenia. 3. Hypertensive urgency. 4. Chronic obstructive pulmonary disease with mild exacerbation, stable. 5. History of coronary artery disease, stable. DISCHARGE MEDICATIONS: Include: 1. Vitamin D 2000 units daily. 2. Nitroglycerin as needed. 3. Fentanyl patch 25 mcg an hour q.3 days. 4. Lasix 20 mg p.o. daily. 5. Vitamin B 1 cap p.o. daily. 6. Ursodiol 250 mg p.o. daily. 7. Protonix 40 mg daily. 8. Folic acid 1 mg daily. 9. Amlodipine 5 mg daily. 10. Multivitamin 1 tablet daily. 11. Lorazepam 0.5 to 1 mg p.o. 3 times a day as needed. 12. Lidex cream topical daily. 13. Ellipta 100 mcg inhaled daily. 14. Calcipotriene topical solution daily. 15. Oxycodone 10 mg p.o. q.6 hours as needed. 16. Gabapentin 300 mg in the evening. 17. Zoloft 25 mg daily. 18. Lidoderm patch 1 patch daily. 19. Astepro spray to both nares daily as needed. 20. Dulera 200/5 two puffs inhaled b.i.d. 21. Mag-Ox 400 mg p.o. daily. 22. Lactulose 30 mL p.o. b.i.d. REVIEW OF SYSTEMS: On day of discharge, the patient denies any fever, fatigue, or chills. No shortness of breath, no chest pain. No nausea, no vomiting, no abdominal pains. No urinary complaints. He was ambulatory with no further constitutional complaints. PHYSICAL EXAM: The patient is alert, well appearing, no acute distress. Vital Signs: Blood pressure 150/76, heart rate 68, respiratory rate 16, O2 saturation 96% on room air with a temperature of 97.7. HEENT: The patient is atraumatic, normocephalic. PERRLA with nonicteric sclerae. Oral mucosa is moist. Tongue is midline. Neck: Supple, nontender. No thyromegaly appreciated. No JVD noted. Cardiovascular: S1, S2 present. No murmurs, gallops, or rubs. Lungs: Clear bilaterally to auscultation with no wheezing, rhonchi, or rales. Abdomen: Soft, nontender, nondistended. Positive bowel sounds in all 4 quadrants. : Deferred. Musculoskeletal: There is no clubbing and no cyanosis. He does have right lower extremity edema at baseline with some discoloration of the skin, also at his baseline. Calves are nontender. +2 distal pulses are palpable. The patient is ambulatory with gross motor and sensation intact. Neurologic: Grossly intact. There is no focal deficit. Psychiatric: Cooperative and appropriate. DIAGNOSTIC STUDIES/LAB DATA: WBCs 2.9, RBCs 4.43, hemoglobin 13.9, hematocrit 41, platelets 31. Sodium 139, potassium 3.5, chloride 108, CO2 25, BUN 13, creatinine 0.61, GFR 134.4, glucose 104, calcium 8.3, magnesium 1.6. Total bilirubin 4.30, AST 90, ALT 21, alk phos 110. Ammonia 94. Total protein 6.1, albumin 3.2, globulin 2.9. Triglycerides 61, cholesterol 105, LDL 63, HDL 29.6. TSH 0.55. Urinalysis: No acute infective process. Serum alcohol level was less than 10. INR was variable from 2.36 at admission to 2.18 at discharge. Influenza A and B were negative. Chest x-ray as noted above with mild atelectasis. DISPOSITION: The patient was discharged home in the care of his daughter, Magaly, in stable condition. DIET: Heart-healthy diet as tolerated. ACTIVITY: Progress as tolerated. FOLLOWUP: The patient was instructed to follow up with Dr. Molina, his primary care provider, within the next week and Dr. Chu Hoskins of in the next 2 to 4 weeks. TIME SPENT: Approximately 35 to 40 minutes on discharge planning, discussing discharge plan of care with the patient's daughter. We reinforced with his daughter as well to continue diuretic medications and lactulose even in the event of acute illness to prevent further decompensation and hospitalization. The patient's daughter who is his healthcare proxy states she is in agreement with this plan. ANGE DURAND, LINDSAY [id number]/[facility] #: [id number] [place]
== END 2019-01-17 15:20 | disposition home health service (06) | DRG 279 ==
LOC: ED 12:21 → MED 16:36 → OBSVTOIN 01-15 14:23
PROVIDERS: ADMIT Internal Medicine; ATTEND Internal Medicine
DX: K72.90 Hepatic failure, unspecified without coma (principal); E87.2 Acidosis; J44.1 Chronic obstructive pulmonary disease with (acute) exacerbation; I10 Essential (primary) hypertension; K21.9 Gastro-esophageal reflux disease without esophagitis; M79.7 Fibromyalgia; K70.30 Alcoholic cirrhosis of liver without ascites; D69.6 Thrombocytopenia, unspecified; I25.10 Atherosclerotic heart disease of native coronary artery without angina pectoris; G89.29 Other chronic pain; M54.9 Dorsalgia, unspecified; E87.6 Hypokalemia; E83.42 Hypomagnesemia; E66.3 Overweight; F17.290 Nicotine dependence, other tobacco product, uncomplicated; I45.10 Unspecified right bundle-branch block; I16.0 Hypertensive urgency; J20.9 Acute bronchitis, unspecified; Z91.14 Patient's other noncompliance with medication regimen; R51 Headache; Z68.33 Body mass index [BMI] 33.0-33.9, adult
CPT/HCPCS: 36415; 71045; 80053; 80061; 80320; 81003; 81015; 82140; 83605; 83735; 83880; 84443; 84484; 85025; 85610; 86140; 87086; 90732; 93005; 94640; 99285; A9270-GY; G0378; G0480; J1940; J3411; J3475; J3480

== ENCOUNTER 2019-04-21 11:30 | Inpatient (IN) | payer OTHER ==
--- NOTE | 2019-04-21 11:40 | ED ---
Shortness of Breath - HPI Summary HPI Summary: The patient is a 64 y/o M arriving by ambulance to [facility] accompanied by daughter with a chief complaint of SOB, productive cough, and left anterior CP for the last two days. Per EMS, the patient was lying down in respiratory distress upon arrival with O2 sat% at 84% rising to 92% with 6L, respiratory rate in the 30s-40s, and in sinus rhythm. Per daughter, the patient's BP was 105 /52 before EMS arrived. The CP is currently rated 7/10 in severity and is aggravated by deep breathing and coughing. He additionally c/o fever of 104F, headache, abdominal pain, and BLE edema. He denies chills, erythema of eyes, photophobia, sore throat, N/V, dysuria, hematuria, myalgia, rash, and dizziness. He does not have O2 at home, and he has been sleeping in a chair for the last two days instead of his bed. No recent falls. Hx of PNA, liver failure , gallbladder problems. No surgical hx. Former smoker, no EtOH, no substance use. - History of Current Complaint Hx Obtained From: Patient Onset/Duration: Gradual Onset, Lasting Days - two, Still Present Current Severity: Severe Aggravating Factors: Deep Breaths Alleviating Factors: Oxygen - in ambulance Associated Signs & Symptoms: Cough (Productive), Chest Pain w/Cough, Fever - 104F, Edema - BLE - Allergy/Home Medications Allergies/Adverse Reactions: Allergies Allergy/AdvReac Type Severity Reaction Status Date / Time No Known Allergies Allergy Verified 10/12/13 04:43 Home Medications: Home Medications Artificial Tears* 15 ML BTL [Polyvinyl Alcohol 1.4% OPTH*] 1 - 2 drop BOTH EYES Q2H PRN 04/21/19 [History Confirmed 04/21/19] Calcipotriene 0.005 % TOPICAL BID 04/21/19 [History Confirmed 04/21/19] Cholecalciferol TAB* [Vitamin D TAB*] 2,000 units PO BEDTIME 04/21/19 [History Confirmed 04/21/19] Furosemide TAB* [Lasix TAB*] 10 mg PO QPM 04/21/19 [History Confirmed 04/21/19] Lactulose* 15 ml PO QID 04/21/19 [History Confirmed 04/25/19] Losartan TAB* [Cozaar TAB*] 100 mg PO QAM 04/21/19 [History Confirmed 04/25/19] Propranolol TAB* [Inderal TAB*] 5 mg PO BID 04/21/19 [History Confirmed 04/21/19 ] Ranitidine TAB (NF) [Zantac TAB (NF)] 150 mg PO BID PRN 04/21/19 [History Confirmed 04/21/19] Triamcinolone 0.1% CREAM (NF) [Kenalog 0.1% Cream (NF)] 1 applic TOPICAL BID PRN 04/21/19 [History Confirmed 04/21/19] Ursodiol CAP* [Actigall CAP 300 MG*] 375 mg PO QPM 04/21/19 [History Confirmed 04/21/19] Ursodiol CAP* [Actigall CAP 300 MG*] 500 mg PO QAM 04/21/19 [History Confirmed 04/21/19] Amlodipine 2.5 mg tab 5 mg QAM 04/25/19 [History Confirmed 04/25/19] Fluticasone Furoate ELLIPTA(NF [Arnuity ELLIPTA (NF)] 1 inh INH DAILY 04/25/19 [ History Confirmed 04/25/19] Oxycodone HCl 20 mg PO Q4HR 04/25/19 [History Confirmed 04/25/19] Sertraline HCl [Zoloft] 50 mg PO DAILY 04/25/19 [History Confirmed 04/25/19] Spironolactone [Aldactone 100 MG-] 100 mg PO DAILY 04/25/19 [History Confirmed 04/25/19] hydrOXYzine pamoate [Vistaril] 1 tab PO DAILY PRN 04/25/19 [History Confirmed ] PMH/Surg Hx/FS Hx/Imm Hx Endocrine/Hematology History: Reports: Hx Blood Disorders - thrombocytopenia, Hx Unexplained Bleeding - epistaxis Denies: Hx Diabetes Cardiovascular History: Reports: Hx Angina, Hx Hypertension, Other Cardiovascular Problems/Disorders - CVA ~2008. HX OF LIVER FAILURE. Respiratory History: Reports: Other Respiratory Problems/Disorders - Coughing, Pt states hx of SOB; O2 at home Denies: Hx Asthma, Hx Chronic Obstructive Pulmonary Disease (COPD) GI History: Reports: Hx Cirrhosis, Hx Gall Bladder Disease, Hx Gastroesophageal Reflux Disease, Other GI Disorders - esophageal varacies History: Reports: Hx Kidney Stones Musculoskeletal History: Reports: Hx Arthritis, Hx Fibromyalgia - Mostly in legs , Other Musculoskeletal History - restless leg syndrome Sensory History: Reports: Hx Contacts or Glasses Denies: Hx Hearing Aid Opthamlomology History: Reports: Hx Contacts or Glasses Neurological History: Reports: Hx Headaches - every morning, Hx Seizures - r/t EtOH; quit 2006 Psychiatric History: Reports: Hx Anxiety - Surgical History Surgery Procedure, Year, and Place: banding for esophageal varacies - Family History Known Family History: Positive: Hypertension Negative: Blood Disorder - Social History Alcohol Use: None Hx Substance Use: No Substance Use Type: Reports: None Substance Use Comment - Amount & Last Used: quit alcohol 2006 Hx Tobacco Use: Yes Smoking Status (MU): Light Every Day Tobacco Smoker Type: Cigarettes Amount Used/How Often: a few cigarettes a day Have You Smoked in the Last Year: Yes Review of Systems Positive: Fever - 104F. Negative: Chills Negative: Photophobia, Erythema Negative: Sore Throat Positive: Chest Pain - left anterior Positive: Shortness Of Breath, Cough - productive Positive: Abdominal Pain. Negative: Vomiting, Nausea Negative: burning, dysuria, hematuria Positive: Edema, Other - NEGATIVE: back pain. Negative: Myalgia Neurological: Other - NEGATIVE: dizziness Positive: Headache All Other Systems Reviewed And Are Negative: Yes Physical Exam - Summary Physical Exam Summary: Constitutional: Well-developed, Well-nourished, Alert. (-) Distressed Skin: Warm, Dry HENT: Normocephalic; Atraumatic Eyes: Conjunctiva normal Neck: Musculoskeletal ROM normal neck. (-) JVD, (-) Stridor, (-) Tracheal deviation Cardio: Rhythm regular, rate normal, Heart sounds normal; Intact distal pulses; The pedal pulses are 2+ and symmetric. Radial pulses are 2+ and symmetric. (-) Murmur Pulmonary/Chest wall: Effort normal. (-) Respiratory distress, (-) Wheezes, (-) Rales, (+) Diffuse rhonchi Abd: Soft, (+) mild low abd tenderness, (-) Distension, (-) Guarding, (-) Rebound Musculoskeletal: (-) Edema Lymph: (-) Cervical adenopathy Neuro: Alert, Oriented x3 Psych: Mood and affect Normal Triage Information Reviewed: Yes Vital Signs Reviewed: Yes Diagnostics - Laboratory Result Diagrams: 04/28/19 05:59 04/28/19 08:00 Lab Statement: Any lab studies that have been ordered have been reviewed, and results considered in the medical decision making process. - Radiology CXR Radiology Interpretation Completed By: Radiologist Summary of Radiographic Findings: 1. Low lung volumes. 2. Pulmonary vascular congestion. 3. Patchy left basilar atelectasis versus consolidation. ED physician has reviewed this report. - CT Chest CT CT Interpretation Completed By: Radiologist Summary of CT Findings: Left lower lobe pneumonia. ED physician has reviewed this report. Abd/Pel CT CT Interpretation Completed By: Radiologist Summary of CT Findings: 1. Left lower lobe infiltrates suggestive of pneumonia. 2. The liver has a cirrhotic morphology. There is splenomegaly and varices consistent with. Portal hypertension. 3. Distended gallbladder with cholelithiasis. ED physician has reviewed this report. - EKG 1201 Cardiac Rate: NL - 63 BPM EKG Rhythm: Sinus Rhythm Summary of EKG Findings: Artifact. Wander. 1327 Cardiac Rate: NL - 63 BPM EKG Comparison: No Significant Change - New T-wave inversions from previous on 04/21/2019 Summary of EKG Findings: T-wave inversions in inferior, anterior, and lateral leads. No STEMI. Re-Evaluation - Re-Evaluation First Eval Re-Evaluation Time: 13:00 Comment: I discussed admission with the patient and his daughter; they agree with the plan. Course/Dx - Course Course Of Treatment: The patient is a 64 y/o M arriving by ambulance to [facility] accompanied by daughter with a chief complaint of SOB, productive cough, and left anterior CP for the last two days. Per EMS, O2 sat% at 84% rising to 92% with 6L, respiratory rate in the 30s-40s, and in sinus rhythm. He additionally c /o fever of 104F, headache, abdominal pain, and BLE edema. He denies chills, erythema of eyes, photophobia, sore throat, N/V, dysuria, hematuria, myalgia, rash, and dizziness. No O2 at home; sleeping in a chair for the last two days. No recent falls. Hx of PNA, liver failure, gallbladder problems. Former smoker. In the ED course, the patient was administered Ns, Piperacillin/Tazobactam, and Levaquin. Blood work reveals RBC of 5.53, MCH of 32, RDW of 17, plt count of 71, abs lymphs of 0.9, INR of 2.99, APTT of 44.0, potassium of 5.2, carbon dioxide of 18, anion gap of 14, BUN of 34, creatinine of 2.27, lactic acid of 4.7, total bilirubin of 8.00, AST of 64, troponin of 0.3, and BNP of 980 without any other significant abnormality. Blood gas reveals ABG pH of 7.31, pCO2 of 31, pO2 of 72, HCO3 of 17.4, and base excess of -9.4. UA is negative. First EKG reveals NSR at 63 BPM. Second EKG reveals new T-wave inversions in the inferior, anterior, and lateral leads. CXR reveals low lung volumes, pulmonary vascular congestion, and left basilar atelectasis versus consolidation. Chest CT reveals left lower lobe pneumonia. Abd/Pel CT reveals left lower lobe infiltrates and distended gallbladder with cholelithiasis. At 1400, I spoke with ICU intesivist Dr. Armstrong, and she understands to follow up with a gallbladder US for cholecystitis versus colonitis. She also understands to start pressures if the patient fails for recussitation. She understands the patients respiratory status is tenuous. He is diagnosed with severe sepsis, left lower lobe PNA, distended gallbladder, and respiratory distress. He agrees with the plan for admission at this time. Ninety minutes CCT. - Diagnoses Provider Diagnoses: Severe sepsis, Left lower lobe pneumonia, Gallbladder hypertrophy, Respiratory distress - Physician Notifications Discussed Care of Patient With: Medina Armstrong - ICU intesivist Time Discussed With Above Provider: 14:00 Instructed by Provider To: Other - At 1400, I spoke with ICU intesivist Dr. Armstrong, and she understands to follow up with a gallbladder US for cholecystitis versus colonitis. She also understands to start pressures if the patient fails for recussitation. She understands the patients respiratory status is tenuous. - Critical Care Time Critical Care Time: 75-104 min - 90 minutes Discharge - Sign-Out/Discharge Documenting (check all that apply): Patient Departure - [place] [facility] [place] Patient Received Moderate/Deep Sedation with Procedure: No - Discharge Plan Condition: Improved Disposition: ADMITTED TO [facility] - Billing Disposition and Condition Condition: IMPROVED Disposition: Admitted to [facility] - Attestation Statements Document Initiated by Todd: Yes Documenting Scribe: Dacia Paul Provider For Whom Todd is Documenting (Include Credential): Dr. Epi Cook MD Scribe Attestation: IDacia, scribed for Dr. Epi Cook MD on 04/29/19 at 1454. Scribe Documentation Reviewed: Yes Provider Attestation: The documentation as recorded by the Dacia duncan accurately reflects the service I personally performed and the decisions made by me, Dr. Epi Cook MD Status of Scribe Document: Viewed
[2019-04-21] MEDS ORDERED: Levofloxacin 750 MG IVPREMIX(* 750 MG/150 ML BAG IVPB ONE (11:50)
[2019-04-21] MEDS ORDERED: NS 0.9% 1000 ML** 1,000 ML IV.FLUID IV ONE (11:50)
[2019-04-21] MEDS ORDERED: Piperacillin/Tazobac ADVAN(*) 3.375 GM in NS 0.9% 100 ML* 100 ML IVPB ONE (11:50)
[2019-04-21 12:28] LABS: INR 2.99 (0.82-1.09)
[2019-04-21 12:29] LABS: Hematocrit 52 % (42-52); Hemoglobin 17.5 g/dL (14.0-18.0); Mean Corpuscular HGB Conc 34 g/dL (31-36); Mean Corpuscular Hemoglobin 32 pg (27-31); Mean Corpuscular Volume 94 fL (80-94); Mean Platelet Volume 8.4 fL (7.4-10.4); Platelet Count 71 10^3/uL (150-450); Red Blood Count 5.53 10^6 /uL (4.18-5.48); Red Cell Distribution Width 17 % (10-15); White Blood Count 8.1 10^3/uL (3.5-10.8)
[2019-04-21 12:35] LABS: Albumin 3.4 g/dL (3.2-5.2); Albumin/Globulin Ratio 1.1 (1-3); Calcium 9.4 mg/dL (8.6-10.3); EGFR African American 35.6 (>60); EGFR Non-African American 29.4 (>60); Globulin 3.2 g/dL (2-4); Total Protein 6.6 g/dL (6.4-8.9)
[2019-04-21 12:37] LABS: Potassium 5.2 mmol/L (3.5-5.0)
[2019-04-21 12:38] LABS: Troponin I 0.3 ng/mL (<0.04)
[2019-04-21 12:52] LABS: ABS Lymphocytes 0.9 10^3/ul (1.0-4.8); ABS Monocytes 0.4 10^3/ul (0-0.8); ABS Neutrophils 6.7 10^3/ul (1.5-7.7); Lymphocyte % 10.9 %; Nucleated Red Blood Cells % 0.2
[2019-04-21 13:17] LABS: Urine Appearance Cloudy; Urine Bilirubin Negative (Negative); Urine Blood Negative (Negative); Urine Color Amber; Urine Glucose Negative (Negative); Urine Ketones Negative (Negative); Urine Nitrite Negative (Negative); Urine Protein Negative (Negative); Urine Specific Gravity 1.017 (1.010-1.030); Urine Urobilinogen Negative (Negative)
--- NOTE | 2019-04-21 14:09 | HP ---
History of Present Illness - History of Present Illness Reason for Visit: shortness of breath History of Present Illness: 64 yo M hospitalized in January 2019 for hepatic encephalopathy, atelectasis and gastroenteritis-like symptoms which resolved spontaneously and likely were related to underlying cirrhosis. He returns to the ED on 04/21 with shortness of breath, productive cough and left anterior pleuritic chest pain. Pt noted to be in respiratory distress per EMS with O2 sat 84% on RA, improving to 92% on 6LNC. RR 30s-40s. Pt's daughter also reports headache, abdominal pain, BLE edema and fever to 104F. She notes the abdominal symptoms have been present since last hospitalization and that he has been encouraged by his PCP to consider cholecystectomy. On evaluation in ED he was noted to have an unremarkable exam. Initially requiring BiPAP but weaned to oximask during ED stay. Bolused for low blood pressures and findings of Lactic acidosis on lab work. CT of chest demonstrates dense LLL pneumonia. CT abdomen with distended gallbladder. Admitted to ICU service for severe sepsis and respiratory failure secondary to LLL pneumonia. - Past Medical History Cardiac: CAD, HTN Pulmonary: COPD Gastrointestinal: Other - cirrhosis Heme/Onc: Other - thrombocytopenia - Past Surgical History Past Surgical History: None - Past Family History Family History: Hypertension - Past Social History Smoke: Quit Alcohol: None Drugs: None Lives: With Family Review of Systems - Review of Systems Constitutional: Positive: Fever, Malaise Eyes: Negative: Pain, Vision Change, Conjunctivae Inflammation, Eyelid Inflammation, Redness, Other ENT: Negative: Ear Pain, Ear Discharge, Nose Pain, Nose Discharge, Nose Congestion, Mouth Pain, Mouth Swelling, Throat Pain, Throat Swelling, Other Respiratory: Positive: Cough, Shortness of Breath, Pleuritic Pain Cardiovascular: Positive: Chest Pain, Orthopnea, Paroxysmal Noc. Dyspnea Gastrointestinal: Positive: Abdominal Pain Genitourinary: Negative: Dysuria, Frequency, Incontinence, Hematuria, Retention , Other Skin: Positive: Other - LE edema Neurological: Negative: Weakness, Numbness, Incoordination, Change in Speech, Confusion, Seizures, Other - Medications/Allergies Allergies/Adverse Reactions: Allergies Allergy/AdvReac Type Severity Reaction Status Date / Time No Known Allergies Allergy Verified 10/12/13 04:43 Exam - Exam Vital Signs: Vital Signs (72 hours) 04/21/19 04/21/19 04/21/19 11:35 11:36 11:50 Temperature 97.7 F Pulse Rate 66 66 65 Respiratory 30 Rate Blood Pressure 95/52 95/52 (mmHg) O2 Sat by Pulse 92 92 87 Oximetry 04/21/19 04/21/19 04/21/19 12:00 12:13 12:15 Temperature 97.7 F Pulse Rate 66 64 Respiratory 37 32 Rate Blood Pressure 84/49 (mmHg) O2 Sat by Pulse 97 96 Oximetry 04/21/19 12:40 Temperature Pulse Rate 65 Respiratory 33 Rate Blood Pressure 88/54 (mmHg) O2 Sat by Pulse 94 Oximetry General: Alert, Oriented x3, Cooperative, No acute distress HEENT: Atraumatic, Mucous membr. moist/pink Lungs: Other - Coarse, rhoncorous over left lower lung field. Clear on right. Cardiovascular: Regular rate Abdomen: Soft, No tenderness Extremities: Other - warm, dry. chronic skin changes present Neurological: Strength at 5/5 X4 ext, Sensation intact Psych/Mental Status: Mental status NL, Mood NL Assessment/Plan - Assessment/Plan Assessment: 64 yo M with recent hospitalization for pneumonia returns to ED on 04/21 with shortness of breath and LLL community acquired pneumonia. Requiring BiPAP to maintain oxygenation and IVF for hypotension. Plan: Cardiovascular: (1) Septic shock; (2) Type 2 NSTEMI; (3) Chronic CHF; (4) hx of HTN; (5) hx of CAD -- HR 62-66 -- SBP 84-95 -- Telemetry -- Cardiac markers Troponin 0.30, follow trend [0.01 on 01/14/2019] ProBNP 980, follow trend [99 on 01/14/2019] -- EKG: unchanged from 01/2019 Home meds: Nitroglycerin, Amlodipine, Lasix, Prooranolol, losartan, spironolactone Pulmonary: (1) Acute hypoxic respiratory failure; (2) Community acquired LLL pneumonia; (3) COPD -- RR 30-37 -- sats 87-97 on BiPAP -- wean BiPAP as able -- CXR: Low lung volumes Pulmonary vascular congestion Patchy left basilar atelectasis vs consolidation -- CT chest: LLL pneumonia -- ABG: pH 7.31; pCO2 31; pO2 72; HCO3 17.4; BE -9.4; %O2 Sat 94. -- incentive spirometry -- ABX as below Home meds: Fluticasone, Azelastine Gastrointestinal: (1) Liver cirrhosis; (2) dilated gallbladder -- CT abdomen & pelvis: LLL infiltrate suggestive of pneumonia Liver cirrhosis splenomegaly & varices consistent with portal hypertension distended gallbladder with cholelithiasis -- HIDA ordered given distended GB -- LFTs Tbili 8.00 [4.30 on 01/16/2019] ALK 65 [110 on 01/16/2019] AST 64 [90 on 01/16/2019] ALT 17 -- diet: CLD. ADAT once off BiPAP -- bowel regimen: None -- ulcer prophylaxis: Pepcid Home meds: Ursodiol, ranitidine, lactulose Endocrine: No acute issues -- monitor BGs Home meds: None Renal: (1) Acute renal failure; (2) Hyperkalemia -- UOP: strict ins & outs -- Cr 2.27, follow trend [0.61 on 01/16/2019] -- Lytes Na 139 K 5.2, hydrate, follow trend. Currently asymptomatic Ca 9.4 Mag ordered with AM labs Phos ordered with AM labs -- IVF: NS @ 75 ml/hr Home meds: Lasix, spironolactone Infectious disease: (1) LLL Pneumonia; (2) Seere sepsis -- Tmax 97.7 -- WBC 8.1 -- Micro 6/10 UA negative blood in progress -- ABX Zosyn Home meds: None Neurologic: (1) Hx of hepatic encephalopathy -- PT Home meds: Fentanyl patch, folic acid, Ativan, Gabapentin, oxycodone Hematological: (1) Thrombocytopenia, chronic -- Hgb 17.5 -- Plt 71, follow trend -- Coags INR 2.99, likely secondary to liver cirrhosis [2.18 on 01/16/2019] PTT 44.0 -- DVT prophylaxis: SQ Lovenox Home meds: None Metabolic: (1) Lactic acidosis -- Lactic acid 4.7. Hydrate, follow trend Home meds: None Other: Home meds: Cholecalciferol, vitamin B complex, folic acid, MVI Deep vein thrombosis prophylaxis: SQ Lovenox Dietary: Pepcid Condition: critical Prognosis: guarded Code status: full Disposition: Admit to ICU Daughter updated at bedside regarding interval events and plan of care Cumulative time spent in the care of this patient (excluding any procedure time) : at least 50 minutes. Patient care included clinical interview (with patient and/or family), bedside exam of the patient, review of labs, x-rays, and other ancillary data, coordination of (respiratory, nursing care, review of patient's records, discussion regarding patients management with involved consultants, primary physician, pharmacists, and other healthcare personnel (dietary, case management , physical/occupational therapy etc.)
[2019-04-21] MEDS ORDERED: NS 0.9% 1000 ML** 1,000 ML IV SCH (14:30)
[2019-04-21] MEDS ORDERED: hydrOXYzine HCL TAB* 10 MG PO PRN (14:51)
[2019-04-21] MEDS ORDERED: LORazepam TAB(*) 0.5 MG PO PRN (14:51)
[2019-04-21] MEDS ORDERED: Zosyn per Pharmacy* NOTE FOLLOW UP SCH (15:00)
[2019-04-21] MEDS ORDERED: Enoxaparin(*) 30 MG/0.3 ML SYR SUBCUT SCH (15:00)
[2019-04-21] MEDS ORDERED: NS 0.9% 100 ML* 100 ML ONE (15:13)
[2019-04-21] MEDS: Lidocaine PATCH 5%* 1 PATCH TRANSDERM SCH (15:16)
[2019-04-21] MEDS: fentaNYL PATCH 25 MCG/HR TRANSDERM SCH (15:17)
[2019-04-21] MEDS ORDERED: Albumin Human 25%* 25 GM/100 ML BTL IV ONE (15:21)
[2019-04-21] MEDS: Lactulose* 15 ML UDC PO SCH ×2 (17:21→21:33)
[2019-04-21] MEDS: ZOSYN 3.375 GM Q8H per EXTENDED INFUSION IVPB SCH ×4 (17:22→23:43)
[2019-04-21 19:13] LABS: Troponin I 0.23 ng/mL (<0.04)
[2019-04-21] MEDS: fentaNYL Patch Check Q Shift 1 NOTE SCH (19:25)
[2019-04-21] MEDS: oxyCODONE TAB* 5 MG TAB PO PRN (19:40)
[2019-04-21] MEDS ORDERED: Gabapentin CAP(*) 300 MG PO ONE (21:00)
[2019-04-21] MEDS: Ursodiol CAP* 300 MG PO SCH (21:32)
[2019-04-21] MEDS: Lidocaine Patch REMOVE* 1 NOTE MISC SCH (21:33)
--- NOTE | 2019-04-21 22:08 | PN ---
Progress Note - Progress Note Date of Service: 04/21/19 Note: Leak in ansari, removed and ansari attempted to be re-inserted. Patient very uncomfortable with new ansari. Ansari removed. Will bladder scan.
[2019-04-22] MEDS ORDERED: NS 0.9% 1000 ML** 1,000 ML IV SCH (00:52)
[2019-04-22 03:56] LABS: Hematocrit 43 % (42-52); Hemoglobin 14.4 g/dL (14.0-18.0); Mean Corpuscular HGB Conc 34 g/dL (31-36); Mean Corpuscular Hemoglobin 32 pg (27-31); Mean Corpuscular Volume 94 fL (80-94); Platelet Count 39 10^3/uL (150-450); Red Blood Count 4.59 10^6 /uL (4.18-5.48); Red Cell Distribution Width 17 % (10-15); White Blood Count 5.5 10^3/uL (3.5-10.8)
[2019-04-22 04:09] LABS: Albumin/Globulin Ratio 1.2 (1-3); BUN/Creatinine Ratio 27.2 (8-20); Calcium 8.6 mg/dL (8.6-10.3); EGFR Non-African American 41.3 (>60); Globulin 2.6 g/dL (2-4); Magnesium 1.6 mg/dL (1.9-2.7); Phosphorus 3.7 mg/dL (2.5-5.0); Potassium 4.9 mmol/L (3.5-5.0); Total Bilirubin 6.4 mg/dL (0.2-1.0); Total Protein 5.6 g/dL (6.4-8.9)
[2019-04-22 06:33] LABS: INR 4.48 (0.82-1.09)
[2019-04-22] MEDS: fentaNYL Patch Check Q Shift 1 NOTE SCH ×2 (06:56→19:21)
[2019-04-22] MEDS: ZOSYN 3.375 GM Q8H per EXTENDED INFUSION IVPB SCH ×6 (07:33→23:30)
[2019-04-22] MEDS: Lidocaine PATCH 5%* 1 PATCH TRANSDERM SCH (07:38)
[2019-04-22] MEDS: Multivitamins/Minerals TAB PO SCH (07:44)
[2019-04-22] MEDS: Famotidine TAB* 20 MG PO SCH (07:44)
[2019-04-22] MEDS: Lactulose* 15 ML UDC PO SCH ×4 (07:44→19:33)
[2019-04-22] MEDS: Folic Acid TAB* 1 MG PO SCH (07:44)
[2019-04-22] MEDS: Sertraline* 50 MG TAB PO SCH (07:44)
[2019-04-22] MEDS: Ursodiol CAP* 300 MG PO SCH ×2 (07:44→20:44)
[2019-04-22] MEDS: oxyCODONE TAB* 5 MG TAB PO PRN ×2 (10:31→17:24)
--- NOTE | 2019-04-22 10:57 | PN ---
Date of Service: 04/22/19 - HD 2 Critical Care Services: 64 yo M hospitalized in January 2019 for hepatic encephalopathy, atelectasis and gastroenteritis-like symptoms which resolved spontaneously and likely were related to underlying cirrhosis. He returns to the ED on 04/21 with shortness of breath, productive cough and left anterior pleuritic chest pain. Pt noted to be in respiratory distress per EMS with O2 sat 84% on RA, improving to 92% on 6LNC. RR 30s-40s. Pt's daughter also reports headache, abdominal pain, BLE edema and fever to 104F. She notes the abdominal symptoms have been present since last hospitalization and that he has been encouraged by his PCP to consider cholecystectomy. On evaluation in ED he was noted to have an unremarkable exam. Initially requiring BiPAP but weaned to oximask during ED stay. Bolused for low blood pressures and findings of Lactic acidosis on lab work. CT of chest demonstrates dense LLL pneumonia. CT abdomen with distended gallbladder. Admitted to ICU service for severe sepsis and respiratory failure secondary to LLL pneumonia. 04/22: No overnight events Vital Signs: Temp Pulse Resp BP SpO2 FiO2 98.2 F 70 30 124/63 91 04/22/19 07:59 04/22/19 10:00 04/22/19 10:00 04/22/19 10:00 04/22/19 10:00 Physical Exam: Gen: sleeping in chair, awakens to voice HEENT: intact, moist mucus membranes Lungs: coarse bilaterally L>R Cardiac: RRR Abdomen: soft, minimally distended. TTP in bilateral upper quadrants. No rebound or guarding Extremities: moving equally Neuro: intact. alert and oriented Fluid Balance (Past 24 Hours): I= O= Net Intake & Output 04/20/19 04/21/19 04/22/19 04/23/19 06:59 06:59 06:59 06:59 Intake Total 3498 0 Output Total 840 125 Balance 2658 -125 Weight 224 lb 3.362 oz Intake: IV Fluids 3002 NS 1002 IVPB 150 Medicated IV 286 Albumin 86 zosyn 200 Oral 60 0 Output: Urine 475 125 [place] 365 Other: Date of Last Bowel 04/22/19 Movement # Bowel Movements 1 Estimated Stool Amount Large Labs: Laboratory Results - last 24 hr 04/21/19 04/21/19 04/21/19 11:40 11:50 11:50 WBC 8.1 RBC 5.53 H Hgb 17.5 Hct 52 MCV 94 MCH 32 H MCHC 34 RDW 17 H Plt Count 71 L MPV 8.4 Neut % (Auto) 83.6 Lymph % (Auto) 10.9 [place] % (Auto) 5.4 Eos % (Auto) 0.0 Baso % (Auto) 0.1 Absolute Neuts (auto) 6.7 Absolute Lymphs (auto) 0.9 L Absolute Monos (auto) 0.4 Absolute Eos (auto) 0.0 Absolute Basos (auto) 0.0 Absolute Nucleated RBC 0.0 Nucleated RBC % 0.2 INR (Anticoag Therapy) 2.99 H APTT 44.0 H Patient Temperature Not Reportable ABG pH 7.31 L ABG pH (Temp Correct) Not Reportable ABG pCO2 31 L ABG pCO2 (Temp Corrct Not Reportable ABG pO2 72 L ABG pO2 (Temp Correct Not Reportable ABG HCO3 17.4 L ABG O2 Saturation 94.0 ABG Base Excess -9.4 L Respiration Rate Not Reportable O2 Delivery Device oxymask Ventilator Type Not Reportable Vent Mode Not Reportable FiO2 10 Inspiratory Time Not Reportable PEEP Not Reportable Pressure Support Not Reportable Pressure Control Not Reportable EPAP Not Reportable IPAP Not Reportable BiPAP Not Reportable Sodium Potassium Chloride Carbon Dioxide Anion Gap BUN Creatinine Est GFR ( Amer) Est GFR (Non-Af Amer) BUN/Creatinine Ratio Glucose Lactic Acid Calcium Ionized Calcium Phosphorus Magnesium Total Bilirubin AST ALT Alkaline Phosphatase Ammonia Troponin I B-Natriuretic Peptide Total Protein Albumin Globulin Albumin/Globulin Ratio Urine Color Urine Appearance Urine pH Ur Specific [place] Urine Protein Urine Ketones Urine Blood Urine Nitrate Urine Bilirubin Urine Urobilinogen Ur Leukocyte Esterase Urine Glucose 04/21/19 04/21/19 04/21/19 11:50 11:50 11:50 WBC RBC Hgb Hct MCV MCH MCHC RDW Plt Count MPV Neut % (Auto) Lymph % (Auto) [place] % (Auto) Eos % (Auto) Baso % (Auto) Absolute Neuts (auto) Absolute Lymphs (auto) Absolute Monos (auto) Absolute Eos (auto) Absolute Basos (auto) Absolute Nucleated RBC Nucleated RBC % INR (Anticoag Therapy) APTT Patient Temperature ABG pH ABG pH (Temp Correct) ABG pCO2 ABG pCO2 (Temp Corrct ABG pO2 ABG pO2 (Temp Correct ABG HCO3 ABG O2 Saturation ABG Base Excess Respiration Rate O2 Delivery Device Ventilator Type Vent Mode FiO2 Inspiratory Time PEEP Pressure Support Pressure Control EPAP IPAP BiPAP Sodium 139 Potassium 5.2 H Chloride 107 Carbon Dioxide 18 L Anion Gap 14 H BUN 34 H Creatinine 2.27 H Est GFR ( Amer) 35.6 Est GFR (Non-Af Amer) 29.4 BUN/Creatinine Ratio 15.0 Glucose 82 Lactic Acid 4.7 H* Calcium 9.4 Ionized Calcium Phosphorus Magnesium Total Bilirubin 8.00 H AST 64 H ALT 17 Alkaline Phosphatase 65 Ammonia Troponin I 0.30 H* B-Natriuretic Peptide Total Protein 6.6 Albumin 3.4 Globulin 3.2 Albumin/Globulin Ratio 1.1 Urine Color Monika Urine Appearance Cloudy Urine pH 5.0 Ur Specific [place] 1.017 Urine Protein Negative Urine Ketones Negative Urine Blood Negative Urine Nitrate Negative Urine Bilirubin Negative Urine Urobilinogen Negative Ur Leukocyte Esterase Negative Urine Glucose Negative 04/21/19 04/21/19 04/21/19 11:50 17:49 17:49 WBC RBC Hgb Hct MCV MCH MCHC RDW Plt Count MPV Neut % (Auto) Lymph % (Auto) [place] % (Auto) Eos % (Auto) Baso % (Auto) Absolute Neuts (auto) Absolute Lymphs (auto) Absolute Monos (auto) Absolute Eos (auto) Absolute Basos (auto) Absolute Nucleated RBC Nucleated RBC % INR (Anticoag Therapy) APTT Patient Temperature ABG pH ABG pH (Temp Correct) ABG pCO2 ABG pCO2 (Temp Corrct ABG pO2 ABG pO2 (Temp Correct ABG HCO3 ABG O2 Saturation ABG Base Excess Respiration Rate O2 Delivery Device Ventilator Type Vent Mode FiO2 Inspiratory Time PEEP Pressure Support Pressure Control EPAP IPAP BiPAP Sodium Potassium Chloride Carbon Dioxide Anion Gap BUN Creatinine Est GFR ( Amer) Est GFR (Non-Af Amer) BUN/Creatinine Ratio Glucose Lactic Acid 3.7 H* Calcium Ionized Calcium Phosphorus Magnesium Total Bilirubin AST ALT Alkaline Phosphatase Ammonia Troponin I 0.23 H* B-Natriuretic Peptide 980 H Total Protein Albumin Globulin Albumin/Globulin Ratio Urine Color Urine Appearance Urine pH Ur Specific [place] Urine Protein Urine Ketones Urine Blood Urine Nitrate Urine Bilirubin Urine Urobilinogen Ur Leukocyte Esterase Urine Glucose 04/22/19 04/22/19 04/22/19 00:23 03:38 03:38 WBC RBC Hgb Hct MCV MCH MCHC RDW Plt Count MPV Neut % (Auto) Lymph % (Auto) [place] % (Auto) Eos % (Auto) Baso % (Auto) Absolute Neuts (auto) Absolute Lymphs (auto) Absolute Monos (auto) Absolute Eos (auto) Absolute Basos (auto) Absolute Nucleated RBC Nucleated RBC % INR (Anticoag Therapy) APTT Patient Temperature ABG pH ABG pH (Temp Correct) ABG pCO2 ABG pCO2 (Temp Corrct ABG pO2 ABG pO2 (Temp Correct ABG HCO3 ABG O2 Saturation ABG Base Excess Respiration Rate O2 Delivery Device Ventilator Type Vent Mode FiO2 Inspiratory Time PEEP Pressure Support Pressure Control EPAP IPAP BiPAP Sodium Potassium Chloride Carbon Dioxide Anion Gap BUN Creatinine Est GFR ( Amer) Est GFR (Non-Af Amer) BUN/Creatinine Ratio Glucose Lactic Acid 4.1 H* Calcium Ionized Calcium Phosphorus Magnesium Total Bilirubin AST ALT Alkaline Phosphatase Ammonia 82 H Troponin I B-Natriuretic Peptide 391 H Total Protein Albumin Globulin Albumin/Globulin Ratio Urine Color Urine Appearance Urine pH Ur Specific [place] Urine Protein Urine Ketones Urine Blood Urine Nitrate Urine Bilirubin Urine Urobilinogen Ur Leukocyte Esterase Urine Glucose 04/22/19 04/22/19 04/22/19 03:38 03:38 03:38 WBC 5.5 RBC 4.59 Hgb 14.4 Hct 43 MCV 94 MCH 32 H MCHC 34 RDW 17 H Plt Count 39 L MPV 9.0 Neut % (Auto) Lymph % (Auto) [place] % (Auto) Eos % (Auto) Baso % (Auto) Absolute Neuts (auto) Absolute Lymphs (auto) Absolute Monos (auto) Absolute Eos (auto) Absolute Basos (auto) Absolute Nucleated RBC Nucleated RBC % INR (Anticoag Therapy) APTT Patient Temperature ABG pH ABG pH (Temp Correct) ABG pCO2 ABG pCO2 (Temp Corrct ABG pO2 ABG pO2 (Temp Correct ABG HCO3 ABG O2 Saturation ABG Base Excess Respiration Rate O2 Delivery Device Ventilator Type Vent Mode FiO2 Inspiratory Time PEEP Pressure Support Pressure Control EPAP IPAP BiPAP Sodium 140 Potassium 4.9 Chloride 110 Carbon Dioxide 19 L Anion Gap 11 BUN 46 H Creatinine 1.69 H Est GFR ( Amer) 50.0 Est GFR (Non-Af Amer) 41.3 BUN/Creatinine Ratio 27.2 H Glucose 75 Lactic Acid Calcium 8.6 Ionized Calcium 1.06 L Phosphorus 3.7 Magnesium 1.6 L Total Bilirubin 6.40 H D AST 44 H ALT 14 Alkaline Phosphatase 28 L Ammonia Troponin I B-Natriuretic Peptide Total Protein 5.6 L Albumin 3.0 L Globulin 2.6 Albumin/Globulin Ratio 1.2 Urine Color Urine Appearance Urine pH Ur Specific [place] Urine Protein Urine Ketones Urine Blood Urine Nitrate Urine Bilirubin Urine Urobilinogen Ur Leukocyte Esterase Urine Glucose 04/22/19 04/22/19 06:08 06:08 WBC RBC Hgb Hct MCV MCH MCHC RDW Plt Count MPV Neut % (Auto) Lymph % (Auto) [place] % (Auto) Eos % (Auto) Baso % (Auto) Absolute Neuts (auto) Absolute Lymphs (auto) Absolute Monos (auto) Absolute Eos (auto) Absolute Basos (auto) Absolute Nucleated RBC Nucleated RBC % INR (Anticoag Therapy) 4.48 H APTT Patient Temperature ABG pH ABG pH (Temp Correct) ABG pCO2 ABG pCO2 (Temp Corrct ABG pO2 ABG pO2 (Temp Correct ABG HCO3 ABG O2 Saturation ABG Base Excess Respiration Rate O2 Delivery Device Ventilator Type Vent Mode FiO2 Inspiratory Time PEEP Pressure Support Pressure Control EPAP IPAP BiPAP Sodium Potassium Chloride Carbon Dioxide Anion Gap BUN Creatinine Est GFR ( Amer) Est GFR (Non-Af Amer) BUN/Creatinine Ratio Glucose Lactic Acid 3.6 H* Calcium Ionized Calcium Phosphorus Magnesium Total Bilirubin AST ALT Alkaline Phosphatase Ammonia Troponin I B-Natriuretic Peptide Total Protein Albumin Globulin Albumin/Globulin Ratio Urine Color Urine Appearance Urine pH Ur Specific [place] Urine Protein Urine Ketones Urine Blood Urine Nitrate Urine Bilirubin Urine Urobilinogen Ur Leukocyte Esterase Urine Glucose Studies: 04/21 HIDA - nonvisualization of the gallbladder concerning for possible acute cholecystitis 04/21 US GB - cholelithiasis without signs of acute biliary obstruction. GB mildly enlarged at 6.5 cm in diameter. no inflammatory findings such as wall thickening or pericholecystic fluid. hepatic cirrhosis present. 04/21 CT abd/pelvis - LLL infiltrates. cirrhosis of liver, splenomegaly and varices consistent with portal hypertension. distended gallbladder with cholelithasis. 04/21 CXR - pulmonary vascular congestion. Left base consolidation. 04/21 CT chest - LLL pneumonia Nutrition: ADAT Impression: 64 yo M with recent hospitalization for pneumonia returns to ED on 04/21 with shortness of breath and LLL community acquired pneumonia. Requiring BiPAP to maintain oxygenation and IVF for hypotension. Plan: Cardiovascular: (1) Septic shock, resolving; (2) Type 2 NSTEMI; (3) Chronic CHF ; (4) hx of HTN; (5) hx of CAD -- HR 60-80 -- SBP 81-147 -- Telemetry -- Cardiac markers Troponin 0.23 from 0.30, follow trend [0.01 on 01/14/2019] ProBNP 391 from 980, follow trend [99 on 01/14/2019] -- EKG: unchanged from 01/2019 -- TTE ordered Home meds: Nitroglycerin, Amlodipine, Lasix, Propranolol, losartan, spironolactone Pulmonary: (1) Acute hypoxic respiratory failure, improving; (2) Community acquired LLL pneumonia; (3) COPD -- RR 22-37 -- sats 89-93 on 10LPM NC -- wean O2 as able -- incentive spirometry -- ABX as below Home meds: Fluticasone, Azelastine Gastrointestinal: (1) Liver cirrhosis; (2) dilated gallbladder -- CT abdomen & pelvis, 04/21: LLL infiltrate suggestive of pneumonia Liver cirrhosis splenomegaly & varices consistent with portal hypertension distended gallbladder with cholelithiasis -- HIDA, 04/21 - nonfilling of GB -- LFTs Tbili 6.40 from 8.00 [4.30 on 01/16/2019] ALK 28 from 65 [110 on 01/16/2019] AST 44 from 64 [90 on 01/16/2019] ALT 14 from 17 -- Ammonia 82, on lactulose -- diet: ADAT -- bowel regimen: Lactulose -- ulcer prophylaxis: Pepcid -- home ursadiol Home meds: Ursodiol, ranitidine, lactulose Endocrine: No acute issues -- monitor BGs Home meds: None Renal: (1) Acute renal failure, improving; (2) Hyperkalemia, resolved; (3) Hypocalcemia; (4) Hypomagnesemia -- UOP: 44 ml/hr -- Cr 1.69 from 2.27, follow trend [0.61 on 01/16/2019] -- Lytes Na 140 from 139 K 4.9 Ca 8.6, ionized 1.06, replace Mag 1.6, replace Phos 3.7 -- IVF: NS @ 100 ml/hr, HLIVF as resuming diet Home meds: Lasix, spironolactone Infectious disease: (1) LLL Pneumonia; (2) Severe sepsis, resolving -- Tmax 99.0 -- WBC 5.5 from 8.1 -- Micro 6/10 UA negative blood in progress MRSA screen negative -- ABX Zosyn Home meds: None Neurologic: (1) Headache; (2) Hx of hepatic encephalopathy -- Home fentanyl patch -- Home oxycodone as needed -- Home hydroxyzine -- Home lidoderm patch -- PRN Ativan for anxiety -- Nightly gabapentin for restless legs -- Home Sertraline -- Folic acid -- PT Home meds: Fentanyl patch, folic acid, Ativan, Gabapentin, oxycodone, lidoderm patch, sertraline, hydroxyzine Hematological: (1) Thrombocytopenia, chronic -- Hgb 14.4 from 17.5, dilutional, follow trend -- Plt 39 from 71, follow trend -- Coags INR 4.48 from 2.99, likely secondary to liver cirrhosis [2.18 on 01/16/2019] -- DVT prophylaxis: SCDs. Chemoprophylaxis on hold secondary to coagulopathy Home meds: None Metabolic: (1) Lactic acidosis -- Lactic acid 3.6 from 4.7. Hydrate, follow trend Home meds: None Other: -- folic acid -- MVI Home meds: Cholecalciferol, vitamin B complex, folic acid, MVI Deep vein thrombosis prophylaxis: SQ Lovenox Dietary: Pepcid Condition: critical Prognosis: guarded Code status: full Disposition: continue ICU care Daughter updated at bedside regarding interval events and plan of care Cumulative time spent in the care of this patient (excluding any procedure time) : at least 50 minutes. Patient care included clinical interview (with patient and/or family), bedside exam of the patient, review of labs, x-rays, and other ancillary data, coordination of (respiratory, nursing care, review of patient's records, discussion regarding patients management with involved consultants, primary physician, pharmacists, and other healthcare personnel (dietary, case management , physical/occupational therapy etc.) Critical Care Time: 50
[2019-04-22] MEDS ORDERED: Magnesium Sulfate 1 GM IV* 1 GM/100 ML BAG IV ONE (11:30)
[2019-04-22] MEDS ORDERED: Calcium Gluconate INJ* 1 GM in NS 0.9% 50 ML* 50 ML IVPB ONE (12:00)
[2019-04-22 12:52] LABS: Troponin I 0.2 ng/mL (<0.04)
[2019-04-22] MEDS ORDERED: Enoxaparin(*) 40 MG/0.4 ML SYR SUBCUT SCH (15:00)
[2019-04-22] MEDS ORDERED: Furosemide IV* 10 MG/ML 2 ML VIAL (20 MG) IV SLOW PU ONE (15:16)
--- NOTE | 2019-04-22 16:05 | ECHO ---
*[facility]* [place] [address] Fax #: [phone] Transthoracic Echocardiogram Patient: Ren, Height: 67 in / Marleny 170.2 cm : 1955 Weight: 223.5 lb Study Date: 04/22/2019 / 101.6 kg Age: 64 BP: 121 / 88 Gender: M BMI/BSA: 35.1 HR: 72 bpm kg/m^2 / 2.12 m^2 *Reclamation Kettle Tender: * Cayla Layne [facility] *Referring Physician: * Medina Armstrong *Reading Physician: * Roberth Dobbins MD Indications: Congestive Heart Failure. Myocardial Infarction (new). History: Coronary artery disease. Congestive heart failure. Conclusions Summary: 1. Left ventricle: There is mild concentric hypertrophy. Systolic function is normal. The estimated ejection fraction is 55-60%. Wall motion is normal; there are no regional wall motion abnormalities. 2. Right ventricle: Systolic function is moderately reduced by visual assessment. 3. Ventricular septum: There is septal flattening of the interventricular septum consistent with RV volume or pressure overload. 4. Left atrium: The atrium is severely dilated. 5. Mitral valve: Focal calcification of the posterior leaflet. There is trace regurgitation. 6. Aortic valve: Focal calcification involving the noncoronary cusp. There is no evidence of stenosis. There is trace regurgitation. 7. Tricuspid valve: There is moderate-severe regurgitation. 8. Pericardium, extracardiac: There is no significant pericardial effusion. 9. Pulmonary arteries: Systolic pressure is severely increased, estimated to be 75 mm Hg. 10. Compared to study of 01/21/14, there is little change. Study data: Transthoracic echocardiogram. Procedure: Transthoracic echocardiography was performed. Image quality was fair. Complete 2D, spectral Doppler, and color flow Doppler. Location: ICU Patient status: Inpatient. Patient room number: ICU-6. Rhythm: Normal sinus rhythm. Findings Left ventricle: The cavity size is normal. There is mild concentric hypertrophy. Systolic function is normal. The estimated ejection fraction is 55-60%. Wall motion is normal; there are no regional wall motion abnormalities. Doppler parameters are consistent with abnormal left ventricular relaxation (grade 1 diastolic dysfunction). Right ventricle: The cavity size is moderately dilated. Systolic function is moderately reduced by visual assessment. Systolic pressure is severely increased. Ventricular septum: There is septal flattening of the interventricular septum consistent with RV volume or pressure overload. Left atrium: The atrium is severely dilated. Right atrium: The atrium is severely dilated. Mitral valve: The annulus is calcified. Focal calcification of the posterior leaflet. There is no evidence of stenosis. There is trace regurgitation. Aortic valve: The annulus is mildly calcified. The valve is trileaflet. Thickening, consistent with sclerosis. Focal calcification involving the noncoronary cusp. There is no evidence of stenosis. There is trace regurgitation. Tricuspid valve: The leaflets are normal thickness. There is no evidence of stenosis. There is moderate-severe regurgitation. Pulmonic valve: The leaflets are normal thickness. There is no evidence of stenosis. There is trivial regurgitation. Aorta: Ascending aorta: The ascending aorta is upper normal in size. Aortic arch: The aortic arch is poorly visualized. The aortic root is not dilated. Pericardium: A prominent pericardial fat pad is present. There is no significant pericardial effusion. Pulmonary arteries: Not well visualized. Systolic pressure is severely increased, estimated to be 75 mm Hg. Systemic veins: Inferior vena cava: The vessel is dilated. The respirophasic diameter changes are in the normal range (>= 50%). Measurements Left ventricle Value Ref Aortic valve Value Ref FREDIS, LAX 4.7 cm 4.2 - 5.8 Carolynn diam, ED 2.5 cm ----- ESD, LAX 3.8 cm 2.5 - 4.0 Peak v, S 1.9 m/sec ----- FS, LAX (L) 22 % 25 - 43 VTI, S 33.0 cm ----- PW, ED, LAX (H) 1.1 cm 0.6 - 1.0 Mean grad, S 7.0 mm Hg ----- FS (L) 22 % 25 - 43 Peak grad, S 14.0 mm Hg ----- PW, ED (H) 1.1 cm 0.6 - 1.0 E', lat carolynn, TDI (L) 6.3 cm/sec >=10.0 Mitral valve Value Ref E/e', lat carolynn, 11 Peak E 0.69 m/sec ----- TDI Peak A 1.04 m/sec ----- E', med carolynn, TDI (L) 4.9 cm/sec >=7.0 Decel time 387 ms --- -- E/e', med carolynn, 14 Peak E/A ratio 0.7 ----- TDI E', avg, TDI 5.6 cm/sec Pulmonic valve Value Ref E/e', avg, TDI 12 <=14 Peak v, S 0.93 m/sec --- -- Peak grad, S 3.0 mm Hg ----- LVOT Value Ref Peak sachi, S 0.84 m/sec Tricuspid valve Value Ref Mean grad, S 2 mm Hg TR peak v (H) 4.1 m/sec <=2.8 Peak RV-RA grad, S 67 mm Hg ----- Ventricular septum Value Ref Max TR sachi 4.11 m/sec ----- IVS, ED (H) 1.1 cm 0.6 - 1.0 Aortic root Value Ref Right ventricle Value Ref Root diam 3.5 cm <4.2 FREDIS, LAX 3.7 cm FREDIS minor ax, A4C (H) 5.5 cm 1.9 - 3.5 Ascending aorta Value Ref mid AAo AP diam, S 3.6 cm ----- Pressure, S 75 mm Hg Decending aorta Value Ref Left atrium Value Ref Tim peak sachi 0.72 m/sec ----- AP dim, ES (H) 4.30 cm 3.00 - 4.00 Pulmonary artery Value Ref ML dim, A4C 4.7 cm Pressure, S 72.0 mm Hg ----- SI dim, A4C 6.5 cm Vol/bsa, ES, 1-p (H) 43 ml/m^2 12 - 37 Inferior vena cava Value Ref A4C Diam 2.5 cm ----- Vol/bsa, ES, A/L (H) 50 ml/m^2 16 - 34 Right atrium Value Ref SI dim, ES (H) 7.2 cm 3.4 - 5.3 ML dim, ES, A4C (H) 4.8 cm 2.6 - 4.4 SI dim, ES, A4C (H) 7.2 cm 3.4 - 5.3 Estimated RAP 8 mm Hg Legend: (L) and (H) waqas values outside specified reference range. Prepared and electronically signed by Roberth Dobbins MD 04/22/2019 16:05
[2019-04-22] MEDS: Lidocaine Patch REMOVE* 1 NOTE MISC SCH (20:44)
[2019-04-22] MEDS ORDERED: Gabapentin CAP(*) 300 MG PO ONE (21:00)
[2019-04-23] MEDS: oxyCODONE TAB* 5 MG TAB PO PRN ×3 (03:18→22:07)
[2019-04-23 05:05] LABS: Hematocrit 39 % (42-52); INR 2.58 (0.82-1.09); Mean Corpuscular HGB Conc 33 g/dL (31-36); Mean Corpuscular Hemoglobin 31 pg (27-31); Mean Corpuscular Volume 93 fL (80-94); Mean Platelet Volume 8.5 fL (7.4-10.4); Platelet Count 43 10^3/uL (150-450); Red Blood Count 4.18 10^6 /uL (4.18-5.48); Red Cell Distribution Width 17 % (10-15); White Blood Count 4.6 10^3/uL (3.5-10.8)
[2019-04-23 05:11] LABS: Albumin 2.7 g/dL (3.2-5.2); Albumin/Globulin Ratio 1.2 (1-3); BUN/Creatinine Ratio 39.4 (8-20); Calcium 8.5 mg/dL (8.6-10.3); EGFR African American 98.4 (>60); EGFR Non-African American 81.3 (>60); Globulin 2.3 g/dL (2-4); Magnesium 1.9 mg/dL (1.9-2.7); Phosphorus 2.2 mg/dL (2.5-5.0); Potassium 3.7 mmol/L (3.5-5.0)
[2019-04-23] MEDS: fentaNYL Patch Check Q Shift 1 NOTE SCH ×2 (06:53→19:18)
[2019-04-23] MEDS ORDERED: Calcium Carbonate CHEW TAB* 500 MG (TUMS) PO ONE (08:42)
--- NOTE | 2019-04-23 08:48 | PN ---
Date of Service: 04/23/19 - HD 3 Critical Care Services: 64 yo M hospitalized in January 2019 for hepatic encephalopathy, atelectasis and gastroenteritis-like symptoms which resolved spontaneously and likely were related to underlying cirrhosis. He returns to the ED on 04/21 with shortness of breath, productive cough and left anterior pleuritic chest pain. Pt noted to be in respiratory distress per EMS with O2 sat 84% on RA, improving to 92% on 6LNC. RR 30s-40s. Pt's daughter also reports headache, abdominal pain, BLE edema and fever to 104F. She notes the abdominal symptoms have been present since last hospitalization and that he has been encouraged by his PCP to consider cholecystectomy. On evaluation in ED he was noted to have an unremarkable exam. Initially requiring BiPAP but weaned to oximask during ED stay. Bolused for low blood pressures and findings of Lactic acidosis on lab work. CT of chest demonstrates dense LLL pneumonia. CT abdomen with distended gallbladder. Admitted to ICU service for severe sepsis and respiratory failure secondary to LLL pneumonia. 04/22: Respiratory effort improving. HIDA results run by general surgery; given the normal findings on CT and US and that symptoms more closely tied to pneumonia, likely not acute cholecystitis. Even if there is a mild component of acute cholecystitis, abx should cover. Consider MRCP if sx fail to improve after abx course completed. 04/23: No overnight events Vital Signs: Temp Pulse Resp BP SpO2 FiO2 96.9 F 59 20 106/55 93 04/23/19 03:19 04/23/19 06:00 04/23/19 06:00 04/23/19 06:00 04/23/19 06:00 Physical Exam: Gen: resting in bed HEENT: NC in place Lungs: scattered wheezes over right lung field, coarse on left Cardiac: RRR Abdomen: soft, nondistended, minimally TTP Extremities: warm, dry, mild edema Neuro: alert and oriented Fluid Balance (Past 24 Hours): I= O= Net Intake & Output 04/21/19 04/22/19 04/23/19 04/24/19 06:59 06:59 06:59 06:59 Intake Total 3498 1771 Output Total 840 1676 Balance 2658 95 Weight 224 lb 3.362 oz 227 lb 8.273 oz Intake: IV Fluids 3002 466 NS 1002 466 IVPB 150 277 ABX - ZOSYN 177 NS 100 Medicated IV 286 48 Albumin 86 zosyn 200 48 Oral 60 980 Output: Urine 475 1625 [place] 365 Post Void Residual 51 Other: Date of Last Bowel 04/22/19 Movement # Bowel Movements 1 Estimated Stool Amount Small Labs: Laboratory Results - last 24 hr 04/21/19 04/22/19 04/22/19 11:50 12:15 12:15 WBC RBC Hgb Hct MCV MCH MCHC RDW Plt Count MPV Hem Pathologist Commnt INR (Anticoag Therapy) Sodium Potassium Chloride Carbon Dioxide Anion Gap BUN Creatinine Est GFR ( Amer) Est GFR (Non-Af Amer) BUN/Creatinine Ratio Glucose Lactic Acid 2.8 H* Calcium Ionized Calcium Phosphorus Magnesium Total Bilirubin AST ALT Alkaline Phosphatase Troponin I 0.20 H* B-Natriuretic Peptide Total Protein Albumin Globulin Albumin/Globulin Ratio 04/22/19 04/23/19 04/23/19 19:38 04:32 04:32 WBC RBC Hgb Hct MCV MCH MCHC RDW Plt Count MPV Hem Pathologist Commnt INR (Anticoag Therapy) Sodium Potassium Chloride Carbon Dioxide Anion Gap BUN Creatinine Est GFR ( Amer) Est GFR (Non-Af Amer) BUN/Creatinine Ratio Glucose Lactic Acid 2.2 H* Calcium Ionized Calcium 1.09 L Phosphorus Magnesium Total Bilirubin AST ALT Alkaline Phosphatase Troponin I B-Natriuretic Peptide 142 H Total Protein Albumin Globulin Albumin/Globulin Ratio 04/23/19 04/23/19 04/23/19 04:32 04:32 04:32 WBC 4.6 RBC 4.18 Hgb 13.0 L Hct 39 L MCV 93 MCH 31 MCHC 33 RDW 17 H Plt Count 43 L MPV 8.5 Hem Pathologist Commnt INR (Anticoag Therapy) 2.58 H Sodium 138 Potassium 3.7 Chloride 111 Carbon Dioxide 22 Anion Gap 5 BUN 37 H Creatinine 0.94 Est GFR ( Amer) 98.4 Est GFR (Non-Af Amer) 81.3 BUN/Creatinine Ratio 39.4 H Glucose 94 Lactic Acid Calcium 8.5 L Ionized Calcium Phosphorus 2.2 L Magnesium 1.9 Total Bilirubin 3.00 H D AST 37 ALT 11 Alkaline Phosphatase 31 L Troponin I B-Natriuretic Peptide Total Protein 5.0 L Albumin 2.7 L Globulin 2.3 Albumin/Globulin Ratio 1.2 Studies: 04/21 HIDA - nonvisualization of the gallbladder concerning for possible acute cholecystitis 04/21 US GB - cholelithiasis without signs of acute biliary obstruction. GB mildly enlarged at 6.5 cm in diameter. no inflammatory findings such as wall thickening or pericholecystic fluid. hepatic cirrhosis present. 04/21 CT abd/pelvis - LLL infiltrates. cirrhosis of liver, splenomegaly and varices consistent with portal hypertension. distended gallbladder with cholelithasis. 04/21 CXR - pulmonary vascular congestion. Left base consolidation. 04/21 CT chest - LLL pneumonia Nutrition: general diet Impression: 64 yo M with recent hospitalization for pneumonia returns to ED on 04/21 with shortness of breath and LLL community acquired pneumonia. Initially BiPAP to maintain oxygenation and IVF for hypotension but now weaned down to nasal cannula. Plan: Cardiovascular: (1) Septic shock, resolved; (2) Type 2 NSTEMI; (3) Acute on chronic combined CHF, improving; (4) Pulmonary artery HTN; (5) Chronic essential HTN; (6) hx of CAD -- HR 59-75 -- SBP 99-142 -- Telemetry -- Cardiac markers Troponin 0.20 from 0.23 from 0.30, follow trend [0.01 on 01/14/2019] ProBNP 142 from 391 from 980, follow trend [99 on 01/14/2019] -- EKG: unchanged from 01/2019 -- TTE, 04/22: mild concentric hypertrophy LVEF 55-60% no WMA reduced systolic fcn on right ventricle septal flattening of intraventricular septum consistent with RV volume or pressure overload left atrium severely dilated moderate to severe regurgiation of triscupid valve severe pulmonary artery hypertension unchanged from 01/21/2014 study -- resume home Lasix Home meds: Nitroglycerin, Amlodipine, Lasix, Propranolol, losartan, spironolactone Pulmonary: (1) Acute hypoxic respiratory failure, improving; (2) Community acquired LLL pneumonia; (3) COPD -- RR 18-30 -- sats 90-94 on 7 LPM NC -- wean O2 as able -- incentive spirometry -- ABX as below Home meds: Fluticasone, Azelastine Gastrointestinal: (1) Liver cirrhosis; (2) dilated gallbladder; (3) Hyperammonemia -- CT abdomen & pelvis, 04/21: LLL infiltrate suggestive of pneumonia Liver cirrhosis splenomegaly & varices consistent with portal hypertension distended gallbladder with cholelithiasis -- HIDA, 04/21 - nonfilling of GB -- LFTs Tbili 3.0 from 6.40 from 8.00 [4.30 on 01/16/2019] ALK 31 [110 on 01/16/2019] AST 37 [90 on 01/16/2019] ALT 11 -- Ammonia 82, on lactulose -- diet: ADAT -- bowel regimen: Lactulose -- ulcer prophylaxis: Pepcid -- home ursadiol -- HIDA results run by general surgery; given the normal findings on CT and US and that symptoms more closely tied to pneumonia, likely not acute cholecystitis. Even if there is a mild component of acute cholecystitis, abx should cover. Consider MRCP if sx fail to improve after abx course completed. Home meds: Ursodiol, ranitidine, lactulose Endocrine: No acute issues -- monitor BGs Home meds: None Renal: (1) Acute renal failure, resolving; (2) Hypocalcemia; (3) Hypophosphatemia -- UOP: 70 ml/hr -- Cr 0.94 from 1.69, follow trend [0.61 on 01/16/2019] -- Lytes Na 138 from 140 K 3.7 Ca 8.5, ionized 1.09, replace Mag 1.9 Phos 2.2, replace -- IVF: HL -- resume home Lasix Home meds: Lasix, spironolactone Infectious disease: (1) LLL Pneumonia; (2) Severe sepsis, resolved -- Tmax 98.2 -- WBC 4.6 from 5.5 -- Micro 6/10 UA negative blood NGTD MRSA screen negative -- ABX Zosyn x 7 day course Home meds: None Neurologic: (1) Headache; (2) Hx of hepatic encephalopathy -- Home fentanyl patch -- Home lidoderm patch -- Home oxycodone as needed -- Home hydroxyzine PRN -- PRN Ativan for anxiety -- Nightly gabapentin for restless legs -- Home Sertraline -- Folic acid -- PT Home meds: Fentanyl patch, folic acid, Ativan, Gabapentin, oxycodone, lidoderm patch, sertraline, hydroxyzine Hematological: (1) Thrombocytopenia, chronic -- Hgb 13.0 from 14.4 -- Plt 43 from 39, follow trend -- Coags INR 2.58 from 4.48, likely secondary to liver cirrhosis [2.18 on 01/16/2019] -- DVT prophylaxis: SCDs. Chemoprophylaxis on hold secondary to coagulopathy Home meds: None Metabolic: (1) Lactic acidosis, improving -- Lactic acid 2.2 from 2.8 from 3.6 Home meds: None Other: -- folic acid -- MVI Home meds: Cholecalciferol, vitamin B complex, folic acid, MVI Deep vein thrombosis prophylaxis: SQ Lovenox Dietary: Pepcid Condition: serious Prognosis: good Code status: full Disposition: consider transfer to floor if able to titrate down O2 over the course of the morning. Cumulative time spent in the care of this patient (excluding any procedure time) : at least 30 minutes. Patient care included clinical interview (with patient and/or family), bedside exam of the patient, review of labs, x-rays, and other ancillary data, coordination of (respiratory, nursing care, review of patient's records, discussion regarding patients management with involved consultants, primary physician, pharmacists, and other healthcare personnel (dietary, case management , physical/occupational therapy etc.) Critical Care Time: 30
[2019-04-23] MEDS ORDERED: Sodium Phosphate INJ* 15 MMOLE in NS 0.9% 250 ML* 250 ML IVPB ONE (09:30)
[2019-04-23] MEDS: Ursodiol CAP* 300 MG PO SCH ×2 (10:29→22:05)
[2019-04-23] MEDS: Lactulose* 15 ML UDC PO SCH ×4 (10:29→22:04)
[2019-04-23] MEDS: Multivitamins/Minerals TAB PO SCH (10:30)
[2019-04-23] MEDS: Famotidine TAB* 20 MG PO SCH (10:30)
[2019-04-23] MEDS: Folic Acid TAB* 1 MG PO SCH (10:30)
[2019-04-23] MEDS: Sertraline* 50 MG TAB PO SCH (10:30)
[2019-04-23] MEDS: Furosemide TAB* 20 MG PO SCH (10:30)
[2019-04-23] MEDS: Lidocaine PATCH 5%* 1 PATCH TRANSDERM SCH (10:37)
[2019-04-23] MEDS: ZOSYN 3.375 GM Q8H per EXTENDED INFUSION IVPB SCH ×4 (10:44→17:22)
[2019-04-23] MEDS ORDERED: Gabapentin CAP(*) 300 MG PO ONE (21:00)
[2019-04-23] MEDS: Lidocaine Patch REMOVE* 1 NOTE MISC SCH (22:16)
[2019-04-24] MEDS: ZOSYN 3.375 GM Q8H per EXTENDED INFUSION IVPB SCH ×6 (00:13→15:47)
[2019-04-24 06:25] LABS: INR 2.12 (0.82-1.09)
[2019-04-24 06:27] LABS: Hematocrit 38 % (42-52); Mean Corpuscular HGB Conc 34 g/dL (31-36); Mean Corpuscular Hemoglobin 31 pg (27-31); Mean Corpuscular Volume 92 fL (80-94); Platelet Count 40 10^3/uL (150-450); Red Blood Count 4.16 10^6 /uL (4.18-5.48); Red Cell Distribution Width 16 % (10-15); White Blood Count 4.8 10^3/uL (3.5-10.8)
[2019-04-24 06:35] LABS: Albumin 2.7 g/dL (3.2-5.2); Albumin/Globulin Ratio 1.1 (1-3); BUN/Creatinine Ratio 33.8 (8-20); Calcium 8.4 mg/dL (8.6-10.3); EGFR African American 123.9 (>60); EGFR Non-African American 102.4 (>60); Globulin 2.4 g/dL (2-4); Magnesium 1.6 mg/dL (1.9-2.7); Phosphorus 4.3 mg/dL (2.5-5.0); Potassium 3.3 mmol/L (3.5-5.0); Total Bilirubin 2.6 mg/dL (0.2-1.0); Total Protein 5.1 g/dL (6.4-8.9)
[2019-04-24] MEDS: fentaNYL Patch Check Q Shift 1 NOTE SCH ×2 (06:37→19:19)
[2019-04-24 06:39] LABS: BNP 129 pg/mL (<=100)
[2019-04-24] MEDS: Lactulose* 15 ML UDC PO SCH ×4 (07:18→22:31)
[2019-04-24] MEDS: Folic Acid TAB* 1 MG PO SCH (07:19)
[2019-04-24] MEDS: Furosemide TAB* 20 MG PO SCH ×2 (07:19→17:44)
[2019-04-24] MEDS: Multivitamins/Minerals TAB PO SCH (07:19)
[2019-04-24] MEDS: Ursodiol CAP* 300 MG PO SCH ×2 (07:19→22:34)
[2019-04-24] MEDS: Famotidine TAB* 20 MG PO SCH (07:19)
[2019-04-24] MEDS: Sertraline* 50 MG TAB PO SCH (07:19)
[2019-04-24] MEDS: Lidocaine PATCH 5%* 1 PATCH TRANSDERM SCH (07:22)
[2019-04-24] MEDS ORDERED: Magnesium Sulfate 2 GM IV* 2 GM/50 ML BAG IVPB ONE (07:34)
[2019-04-24] MEDS: Potassium Chlor TAB* 20 MEQ TAB.ER PO SCH ×2 (10:20→13:20)
--- NOTE | 2019-04-24 10:37 | PN ---
Subjective Date of Service: 04/24/19 Interval History: Per nursing patient has not been retaining a significant amount since post void bladder scans initiated on 04/21. Per nursing, this morning patient voided approx 140 mls and post void scan revealed approx 17 ml. Order given to stop post void residual bladder scans. On assessment patient is sitting in chair. Reports he continues to have sob with ambulation, but sob has improved with rest. Denies cp, palpitations, nausea, vomiting, fever, chills. Objective Active Medications: Famotidine (Pepcid Tab*) 20 mg PO DAILY [facility] Last Admin: 04/24/19 07:19 Dose: 20 mg Fentanyl (Duragesic Patch 25 Mcg/Hr*) 25 mcg TRANSDERM Q72H [facility] Last Admin: 04/21/19 15:17 Dose: 25 mcg Folic Acid (Folvite Tab*) 1 mg PO DAILY [facility] Last Admin: 04/24/19 07:19 Dose: 1 mg Furosemide (Lasix Tab*) 20 mg PO DAILY [facility] Last Admin: 04/24/19 07:19 Dose: 20 mg Hydroxyzine HCl (Atarax Tab*) 10 mg PO Q6H PRN PRN Reason: ANXIETY Piperacillin Sod/Tazobactam (Sod 3.375 gm/ Sodium Chloride) 100 mls @ 25 mls/ hr IVPB Q8H [facility] Stop: 04/28/19 15:59 Last Admin: 04/24/19 07:18 Dose: 25 mls/hr Lactulose (Lactulose*) 15 ml PO QID [facility] Last Admin: 04/24/19 07:18 Dose: 15 ml Lidocaine (Lidoderm 5% Patch*) 1 patch TRANSDERM DAILY [facility] Last Admin: 04/24/19 07:22 Dose: 1 patch Lorazepam (Ativan Tab(*)) 0.5 mg PO Q6H PRN PRN Reason: ANXIETY Multivitamins/Minerals (Theragran/Minerals Tab*) 1 tab PO DAILY [facility] Last Admin: 04/24/19 07:19 Dose: 1 tab Oxycodone HCl (Roxycodone Tab*) 5 mg PO Q6H PRN PRN Reason: PAIN Last Admin: 04/23/19 22:07 Dose: 5 mg Pharmacy Consult (Zosyn Per Pharmacy*) 1 note FOLLOW UP .ZOSYN PER PHARMACY [facility] Pharmacy Profile Note (Lidocaine Patch Remove*) 1 note N/A 2100 [facility] Last Admin: 04/23/19 22:16 Dose: 1 note Pharmacy Profile Note (Fentanyl Patch Check Q Shift) 1 note N/A 0700,1900 [facility] Last Admin: 04/24/19 06:37 Dose: 1 note Potassium Chloride (Klor Con Er Tab*) 20 meq PO Q4HR [facility] Stop: 04/24/19 14:01 Last Admin: 04/24/19 10:20 Dose: 20 meq Sertraline HCl (Zoloft*) 50 mg PO DAILY [facility] Last Admin: 04/24/19 07:19 Dose: 50 mg Ursodiol (Actigall Cap*) 300 mg PO BID [facility] Last Admin: 04/24/19 07:19 Dose: 300 mg Vital Signs - 8 hr 04/24/19 04/24/19 07:36 07:37 Temperature 98.1 F Pulse Rate 63 Respiratory 24 24 Rate Blood Pressure 132/67 (mmHg) O2 Sat by Pulse 93 Oximetry Oxygen Devices in Use Now: Nasal Cannula Appearance: Comfortable, NAD Eyes: No Scleral Icterus Ears/Nose/Mouth/Throat: Clear Oropharnyx, Mucous Membranes Moist Neck: NL Appearance and Movements; NL JVP Respiratory: Symmetrical Chest Expansion and Respiratory Effort, - - Right lung clear throughout. Rhonchi heard in left lower and mid lower that clears midly with cough. Remainder of left lung clear. Cardiovascular: NL Sounds; No Murmurs; No JVD, RRR, No Edema Abdominal: - - BS+. Non distended. No rigidity or rebound tenderness. Reports "little" pain with palpation to upper quads and epigastric region. Lymphatic: No Cervical Adenopathy Extremities: No Edema Skin: No Rash or Ulcers Neurological: Alert and Oriented x 3 Nutrition: Taking PO's Result Diagrams: 04/24/19 05:59 04/24/19 05:59 Additional Lab and Data: Laboratory Results - last 24 hr 04/24/19 04/24/19 04/24/19 05:59 05:59 05:59 WBC 4.8 RBC 4.16 L Hgb 13.0 L Hct 38 L MCV 92 MCH 31 MCHC 34 RDW 16 H Plt Count 40 L MPV 8.0 INR (Anticoag Therapy) Sodium 141 Potassium 3.3 L Chloride 110 Carbon Dioxide 23 Anion Gap 8 BUN 26 H Creatinine 0.77 Est GFR ( Amer) 123.9 Est GFR (Non-Af Amer) 102.4 BUN/Creatinine Ratio 33.8 H Glucose 87 Calcium 8.4 L Ionized Calcium 1.11 L Phosphorus 4.3 Magnesium 1.6 L Total Bilirubin 2.60 H AST 73 H ALT 20 Alkaline Phosphatase 50 Ammonia B-Natriuretic Peptide Total Protein 5.1 L Albumin 2.7 L Globulin 2.4 Albumin/Globulin Ratio 1.1 04/24/19 04/24/19 05:59 05:59 WBC RBC Hgb Hct MCV MCH MCHC RDW Plt Count MPV INR (Anticoag Therapy) 2.12 H Sodium Potassium Chloride Carbon Dioxide Anion Gap BUN Creatinine Est GFR ( Amer) Est GFR (Non-Af Amer) BUN/Creatinine Ratio Glucose Calcium Ionized Calcium Phosphorus Magnesium Total Bilirubin AST ALT Alkaline Phosphatase Ammonia 76 H B-Natriuretic Peptide 129 H Total Protein Albumin Globulin Albumin/Globulin Ratio Microbiology and Other Data: Microbiology 04/21/19 12:44 Blood Venous Aerobic Blood Culture - Preliminary No Growth Day 3 04/21/19 12:44 Blood Venous Anaerobic Blood Culture - Preliminary No Growth Day 3 04/21/19 11:50 Blood Venous Aerobic Blood Culture - Preliminary No Growth Day 3 04/21/19 11:50 Blood Venous Anaerobic Blood Culture - Preliminary No Growth Day 3 04/21/19 14:30 Nasal Nasal Screen MRSA (PCR) - Final Mrsa Not Detected Assess/Plan/Problems-Billing Assessment: 64 year old male with pmh significant for COPD, CAD, HTN, cirrhosis; who was recently admitted for hepatic encephalopathy, atelectasis, and gastrointeritis like symptoms; who presented to the ED in severe sepsis, resp failure, and LLL pneumonia - Patient Problems (1) Electrolyte abnormality Comment: - K and Mag replaced. - Recheck tomorrow (2) Sepsis Comment: - Presented to ED 04/21 with hypoxia, hypotension, reported fever, and sourse of LLL pneumonia. - Hypoxia improving as no longer needed Bipap or Mask as he is currently on NC at 3L - Hypotension resolved after IVF boluses - No recorded fever while admitted. - Cont Zosyn for LLL pneumonia (3) SOB (shortness of breath) Comment: - Continues to report sob with exertion, but sob at rest has improved - Currenltly on 3L NC - Encourage flutter valve - Duonebs ordered prn (4) Pneumonia Comment: - Cont Zosyn (5) Acute respiratory failure with hypoxia Comment: - Improving. - Secondary to pneumonia - Currently on 3 L (6) Abdominal pain Comment: - Daughter report patient had been complaining of abd pain on admission - CT revealed liver cirrhosis, spenomegaly with varicies consistent with portal htn, distended gall bladder and cholethiasis. - HIDA and US obtained; results reviewed with surg by ICU provider; recommended likely not acute cholecystitis, even if mild Zosyn would cover, if no improvement with abx consider MRCP. - Total cam decreasing. AST mildly elevated. Continue to monitor. (7) History of coronary artery disease Comment: - Stable, no chest pain - Cont home lasix and resume beta luis - Consider resuming home medications of losartan, amlodipine and aldactone as patient improves. (8) Thrombocytopenia Comment: - Likely secondary to liver disease - PLT at baseline - Recommend follow up with PCP and possibly hematology consult if needed (9) Elevated troponin Comment: - Resolved - Elevated on admission. Trended and decreased. - No EKG changes. (10) Elevated brain natriuretic peptide (BNP) level Comment: - Elevated at 908 on admission. Now 129 - Echo revealed EF 55-60%, septal flattening of intraventricular septum, left atrium severly dilated, severe pulmonary htn; unchanged from 01/21/14 - Cont home lasix of 20 mg PO in morning and 10 mg PO at bedtime - Consider restarting Aldactone 100 mg po daily which is home dose (11) DVT prophylaxis Comment: - Ambulate, hig risk for bleeding (12) Full code status Status and Disposition: Inpatient. Attending: Minh De Los Santos
[2019-04-24] MEDS: oxyCODONE TAB* 5 MG TAB PO PRN ×3 (13:23→22:32)
[2019-04-24] MEDS ORDERED: Albuterol/Ipratropium NEB.SOL* Albuterol 2.5 MG/Ipratropium 0.5 MG 3 ML INH PRN (13:30)
[2019-04-24] MEDS: fentaNYL PATCH 25 MCG/HR TRANSDERM SCH (16:08)
[2019-04-24] MEDS: Propranolol TAB* 10 MG PO SCH (22:34)
[2019-04-24] MEDS: Lidocaine Patch REMOVE* 1 NOTE MISC SCH (22:39)
[2019-04-25] MEDS: ZOSYN 3.375 GM Q8H per EXTENDED INFUSION IVPB SCH ×6 (00:05→16:32)
[2019-04-25] MEDS: oxyCODONE TAB* 5 MG TAB PO PRN ×4 (03:02→19:22)
[2019-04-25 06:50] LABS: Hematocrit 39 % (42-52); Hemoglobin 13.2 g/dL (14.0-18.0); INR 2.42 (0.82-1.09); Mean Corpuscular HGB Conc 34 g/dL (31-36); Mean Corpuscular Hemoglobin 32 pg (27-31); Mean Corpuscular Volume 92 fL (80-94); Mean Platelet Volume 8.8 fL (7.4-10.4); Platelet Count 44 10^3/uL (150-450); Red Blood Count 4.17 10^6 /uL (4.18-5.48); Red Cell Distribution Width 17 % (10-15); White Blood Count 4.4 10^3/uL (3.5-10.8)
[2019-04-25 06:56] LABS: Albumin 2.7 g/dL (3.2-5.2); Calcium 8.3 mg/dL (8.6-10.3); EGFR African American 153.3 (>60); EGFR Non-African American 126.7 (>60); Globulin 2.8 g/dL (2-4); Magnesium 1.5 mg/dL (1.9-2.7); Phosphorus 3.7 mg/dL (2.5-5.0); Potassium 3.3 mmol/L (3.5-5.0); Total Bilirubin 2.7 mg/dL (0.2-1.0); Total Protein 5.5 g/dL (6.4-8.9)
[2019-04-25] MEDS: fentaNYL Patch Check Q Shift 1 NOTE SCH ×2 (07:19→18:51)
[2019-04-25] MEDS ORDERED: Magnesium Sulfate 2 GM IV* 2 GM/50 ML BAG IVPB ONE ×2 (07:36→18:30)
[2019-04-25] MEDS ORDERED: NS 0.9% 100 ML* 100 ML ONE (08:59)
[2019-04-25] MEDS ORDERED: Spironolactone TAB* 25 MG PO SCH (09:00)
[2019-04-25] MEDS: Lidocaine PATCH 5%* 1 PATCH TRANSDERM SCH (09:05)
[2019-04-25] MEDS: Lactulose* 15 ML UDC PO SCH ×4 (09:06→22:36)
[2019-04-25] MEDS: Folic Acid TAB* 1 MG PO SCH (09:07)
[2019-04-25] MEDS: Propranolol TAB* 10 MG PO SCH ×2 (09:07→22:35)
[2019-04-25] MEDS: Multivitamins/Minerals TAB PO SCH (09:07)
[2019-04-25] MEDS: Sertraline* 50 MG TAB PO SCH (09:08)
[2019-04-25] MEDS: Famotidine TAB* 20 MG PO SCH (09:08)
[2019-04-25] MEDS: Ursodiol CAP* 300 MG PO SCH ×2 (09:08→22:36)
[2019-04-25] MEDS: Furosemide TAB* 20 MG PO SCH ×2 (09:09→16:33)
[2019-04-25] MEDS ORDERED: Lidocaine PATCH 5%* 1 PATCH TRANSDERM PRN (14:49)
[2019-04-25] MEDS ORDERED: oxyCODONE TAB* 5 MG TAB PO PRN (14:56)
[2019-04-25] MEDS: Gabapentin CAP(*) 300 MG PO SCH (16:33)
--- NOTE | 2019-04-25 17:45 | PN ---
Subjective Date of Service: 04/25/19 Interval History: Patient resting in bed on assessment. [employer] Agent Ipad used for communication. Reports he continues to feel mildy sob with exertion, but this has improved somewhat. No longer experiencing sob at rest. Reports pain in left ribs only with cough and reports it is less severe than previously. Denies abd pain, cp, nausea, vomiting, fever, chills. Reports diarrhea. Objective Active Medications: Albuterol/Ipratropium (Duoneb (Albuterol 2.5 Mg/Ipratropium 0.5 Mg)) 1 neb INH Q4H PRN PRN Reason: SOB/WHEEZING Amlodipine Besylate (Norvasc Tab*) 5 mg PO DAILY [facility] Cholecalciferol (Vitamin D Tab*) 2,000 units PO BEDTIME [facility] Famotidine (Pepcid Tab*) 20 mg PO DAILY [facility] Last Admin: 04/25/19 09:08 Dose: 20 mg Fentanyl (Duragesic Patch 25 Mcg/Hr*) 25 mcg TRANSDERM Q72H [facility] Last Admin: 04/24/19 16:08 Dose: 25 mcg Folic Acid (Folvite Tab*) 1 mg PO DAILY [facility] Last Admin: 04/25/19 09:07 Dose: 1 mg Furosemide (Lasix Tab*) 20 mg PO DAILY [facility] Last Admin: 04/25/19 09:09 Dose: 20 mg Gabapentin (Neurontin Cap(*)) 300 mg PO QPM [facility] Last Admin: 04/25/19 16:33 Dose: 300 mg Hydroxyzine HCl (Atarax Tab*) 10 mg PO Q6H PRN PRN Reason: ANXIETY Piperacillin Sod/Tazobactam (Sod 3.375 gm/ Sodium Chloride) 100 mls @ 25 mls/ hr IVPB Q8H [facility] Stop: 04/28/19 15:59 Last Admin: 04/25/19 16:32 Dose: 25 mls/hr Lactulose (Lactulose*) 15 ml PO QID [facility] Last Admin: 04/25/19 16:32 Dose: 15 ml Lidocaine (Lidoderm 5% Patch*) 1 patch TRANSDERM DAILY [facility] Last Admin: 04/25/19 09:05 Dose: 1 patch Lorazepam (Ativan Tab(*)) 0.5 mg PO Q6H PRN PRN Reason: ANXIETY Losartan Potassium (Cozaar Tab*) 50 mg PO DAILY [facility] Multivitamins/Minerals (Theragran/Minerals Tab*) 1 tab PO DAILY [facility] Last Admin: 04/25/19 09:07 Dose: 1 tab Non-Formulary Medication (Fluticasone Furoate [Arnuity Ellipta]) 1 inh INH DAILY [facility] Non-Formulary Medication (Spironolactone [Aldactone 100 Mg-]) 50 mg PO DAILY [facility] Oxycodone HCl (Roxycodone Tab*) 20 mg PO Q4H PRN PRN Reason: PAIN Pharmacy Consult (Zosyn Per Pharmacy*) 1 note FOLLOW UP .ZOSYN PER PHARMACY [facility] Pharmacy Profile Note (Lidocaine Patch Remove*) 1 note N/A 2100 [facility] Last Admin: 04/24/19 22:39 Dose: 1 note Pharmacy Profile Note (Fentanyl Patch Check Q Shift) 1 note N/A 0700,1900 [facility] Last Admin: 04/25/19 07:19 Dose: 1 note Propranolol HCl (Inderal Tab*) 5 mg PO BID [facility] Last Admin: 04/25/19 09:07 Dose: 5 mg Sertraline HCl (Zoloft*) 50 mg PO DAILY [facility] Last Admin: 04/25/19 09:08 Dose: 50 mg Ursodiol (Actigall Cap*) 500 mg PO QAM [facility] Ursodiol (Actigall Cap*) 375 mg PO BEDTIME [facility] Vitamin B Complex/Vitamin E (B Complex-50*) 1 tab PO DAILY [facility] Vital Signs - 8 hr 04/25/19 04/25/19 04/25/19 10:33 10:34 12:00 Temperature Pulse Rate 61 Respiratory 28 Rate Blood Pressure 118/65 (mmHg) O2 Sat by Pulse 92 86 93 Oximetry 04/25/19 04/25/19 04/25/19 14:46 16:00 16:33 Temperature 98.3 F Pulse Rate 66 Respiratory 18 18 18 Rate Blood Pressure 135/64 (mmHg) O2 Sat by Pulse 91 Oximetry 04/25/19 17:40 Temperature Pulse Rate Respiratory 18 Rate Blood Pressure (mmHg) O2 Sat by Pulse Oximetry Oxygen Devices in Use Now: Nasal Cannula Appearance: Comfortable, NAD Eyes: No Scleral Icterus Ears/Nose/Mouth/Throat: Clear Oropharnyx, Mucous Membranes Moist Neck: NL Appearance and Movements; NL JVP Respiratory: Symmetrical Chest Expansion and Respiratory Effort, Clear to Auscultation Cardiovascular: NL Sounds; No Murmurs; No JVD, RRR, No Edema Abdominal: NL Sounds; No Tenderness; No Distention Lymphatic: No Cervical Adenopathy Extremities: No Clubbing, Cyanosis Skin: No Rash or Ulcers Neurological: Alert and Oriented x 3 Nutrition: Taking PO's Result Diagrams: 04/25/19 06:16 04/25/19 06:16 Additional Lab and Data: Laboratory Results - last 24 hr 04/25/19 04/25/19 04/25/19 06:16 06:16 06:16 WBC 4.4 RBC 4.17 L Hgb 13.2 L Hct 39 L MCV 92 MCH 32 H MCHC 34 RDW 17 H Plt Count 44 L MPV 8.8 INR (Anticoag Therapy) 2.42 H Sodium 139 Potassium 3.3 L Chloride 108 Carbon Dioxide 24 Anion Gap 7 BUN 16 Creatinine 0.64 L Est GFR ( Amer) 153.3 Est GFR (Non-Af Amer) 126.7 BUN/Creatinine Ratio 25.0 H Glucose 93 Calcium 8.3 L Ionized Calcium Phosphorus 3.7 Magnesium 1.5 L Total Bilirubin 2.70 H AST 53 H ALT 17 Alkaline Phosphatase 60 B-Natriuretic Peptide Total Protein 5.5 L Albumin 2.7 L Globulin 2.8 Albumin/Globulin Ratio 1.0 04/25/19 04/25/19 06:17 06:17 WBC RBC Hgb Hct MCV MCH MCHC RDW Plt Count MPV INR (Anticoag Therapy) Sodium Potassium Chloride Carbon Dioxide Anion Gap BUN Creatinine Est GFR ( Amer) Est GFR (Non-Af Amer) BUN/Creatinine Ratio Glucose Calcium Ionized Calcium 1.11 L Phosphorus Magnesium Total Bilirubin AST ALT Alkaline Phosphatase B-Natriuretic Peptide 284 H Total Protein Albumin Globulin Albumin/Globulin Ratio Microbiology and Other Data: Microbiology 04/21/19 12:44 Blood Venous Aerobic Blood Culture - Preliminary No Growth Day 3 04/21/19 12:44 Blood Venous Anaerobic Blood Culture - Preliminary No Growth Day 3 04/21/19 11:50 Blood Venous Aerobic Blood Culture - Preliminary No Growth Day 3 04/21/19 11:50 Blood Venous Anaerobic Blood Culture - Preliminary No Growth Day 3 04/21/19 14:30 Nasal Nasal Screen MRSA (PCR) - Final Mrsa Not Detected Assess/Plan/Problems-Billing Assessment: 64 year old male with pmh significant for COPD, CAD, HTN, cirrhosis; who was recently admitted for hepatic encephalopathy, atelectasis, and gastrointeritis like symptoms; who presented to the ED in severe sepsis, resp failure, and LLL pneumonia - Patient Problems (1) Electrolyte abnormality Comment: - K and Mag low again today, therefore, replacement ordered again. - Recheck tomorrow - Restarted patient's home Aldactone today which may help with K - Sinus on tele (2) Sepsis Comment: - Resolved - Currently on 3L NC and per Delimber Operator patient is on 2L NC at home at all times. Patient is not the best historian. - Met criteria on 04/21 with hypoxia, hypotension, reported fever, and sourse of LLL pneumonia. - Previously needed Bipap or Mask - Hypotension resolved, therefore, restarted home medications but at lower doses - No recorded fever while admitted. - Cont Zosyn for LLL pneumonia. Today is day 5. (3) SOB (shortness of breath) Comment: - Improving. Updated by CW that patient already wears O2 at home at 2L - Continues to report sob with exertion, but sob at rest has improved - Currenltly on 3L NC - Encourage flutter valve - Duonebs ordered prn (4) Pneumonia Comment: - Cont Zosyn. Today is day 5 (5) Acute respiratory failure with hypoxia Comment: - Improving. - Secondary to pneumonia - Currently on 3 L. Per CW on 2L NC at home (6) Abdominal pain Comment: - Denies abd pain today. Patient on Ursodiol - Daughter report patient had been complaining of abd pain on admission - CT revealed liver cirrhosis, spenomegaly with varicies consistent with portal htn, distended gall bladder and cholethiasis. - HIDA and US obtained; results reviewed with surg by ICU provider; recommended likely not acute cholecystitis, even if mild Zosyn would cover, if no improvement with abx consider MRCP. - Total cam decreasing. AST mildly elevated. Continue to monitor. (7) History of coronary artery disease Comment: - Stable, no chest pain - Cont beta luis, lasix, losartan (lower dose), amlodipine and aldactone ( lower dose) (8) Thrombocytopenia Comment: - Likely secondary to liver disease - PLT at baseline - Recommend follow up with PCP and possibly hematology consult if needed (9) Elevated troponin Comment: - Resolved - Elevated on admission. Trended and decreased. - No EKG changes. (10) Elevated brain natriuretic peptide (BNP) level Comment: - Elevated at 908 on admission. Now 284 - Echo revealed EF 55-60%, septal flattening of intraventricular septum, left atrium severly dilated, severe pulmonary htn; unchanged from 01/21/14 (11) Cirrhosis Comment: - Cont lasix and aldactone (lower dose) - Reduce lactolose due to diarrhea (12) DVT prophylaxis Comment: - Ambulate, hig risk for bleeding (13) Full code status Status and Disposition: Inpatient. Attending: Garrett Winkler
[2019-04-25] MEDS: Cholecalciferol TAB* 1000 UNITS PO SCH (22:36)
[2019-04-25] MEDS: Lidocaine Patch REMOVE* 1 NOTE MISC SCH (22:38)
[2019-04-26] MEDS: ZOSYN 3.375 GM Q8H per EXTENDED INFUSION IVPB SCH ×6 (00:20→17:31)
[2019-04-26] MEDS: oxyCODONE TAB* 5 MG TAB PO PRN ×3 (06:04→18:53)
[2019-04-26 07:00] LABS: Hematocrit 40 % (42-52); Hemoglobin 13.4 g/dL (14.0-18.0); Mean Corpuscular HGB Conc 34 g/dL (31-36); Mean Corpuscular Hemoglobin 32 pg (27-31); Mean Corpuscular Volume 93 fL (80-94); Mean Platelet Volume 9.4 fL (7.4-10.4); Platelet Count 47 10^3/uL (150-450); Red Blood Count 4.26 10^6 /uL (4.18-5.48); Red Cell Distribution Width 17 % (10-15); White Blood Count 4.8 10^3/uL (3.5-10.8)
[2019-04-26 07:10] LABS: INR 2.34 (0.82-1.09)
[2019-04-26] MEDS: fentaNYL Patch Check Q Shift 1 NOTE SCH ×2 (07:10→18:55)
[2019-04-26 07:24] LABS: Albumin 2.8 g/dL (3.2-5.2); BUN/Creatinine Ratio 22.2 (8-20); Calcium 8.5 mg/dL (8.6-10.3); EGFR African American 156.1 (>60); Globulin 2.8 g/dL (2-4); Magnesium 1.7 mg/dL (1.9-2.7); Phosphorus 2.9 mg/dL (2.5-5.0); Potassium 3.4 mmol/L (3.5-5.0); Total Bilirubin 2.9 mg/dL (0.2-1.0); Total Protein 5.6 g/dL (6.4-8.9)
[2019-04-26] MEDS: Lidocaine PATCH 5%* 1 PATCH TRANSDERM SCH (08:39)
[2019-04-26] MEDS: Sertraline* 50 MG TAB PO SCH (08:39)
[2019-04-26] MEDS: Lactulose* 15 ML UDC PO SCH ×4 (08:39→20:45)
[2019-04-26] MEDS: Ursodiol CAP* 300 MG PO SCH ×2 (08:40→20:44)
[2019-04-26] MEDS: Vitamin B Complex TAB PO SCH (08:40)
[2019-04-26] MEDS: Folic Acid TAB* 1 MG PO SCH (08:40)
[2019-04-26] MEDS: Spironolactone TAB* 25 MG PO SCH (08:40)
[2019-04-26] MEDS: Multivitamins/Minerals TAB PO SCH (08:40)
[2019-04-26] MEDS: Famotidine TAB* 20 MG PO SCH (08:41)
[2019-04-26] MEDS: Furosemide TAB* 20 MG PO SCH (08:41)
[2019-04-26] MEDS: FLUTICASONE FUROATE INH SCH (08:41)
[2019-04-26] MEDS ORDERED: Folic Acid TAB* 1 MG PO SCH (09:00)
[2019-04-26] MEDS ORDERED: AMLODIPINE PO SCH (09:00)
[2019-04-26] MEDS ORDERED: Losartan TAB* 25 MG PO SCH ×2 (09:00)
[2019-04-26] MEDS ORDERED: Furosemide TAB* 20 MG PO SCH (09:00)
[2019-04-26] MEDS ORDERED: amLODIPine TAB* 5 MG PO SCH (09:00)
[2019-04-26] MEDS: Propranolol TAB* 10 MG PO SCH ×2 (11:09→20:44)
[2019-04-26] MEDS ORDERED: Potassium Chlor TAB* 20 MEQ TAB.ER PO ONE (14:28)
[2019-04-26] MEDS ORDERED: Magnesium Sulfate 2 GM IV* 2 GM/50 ML BAG IVPB ONE (14:30)
--- NOTE | 2019-04-26 14:34 | PN ---
Subjective Date of Service: 04/26/19 Interval History: Some improvement in breathing.Still some sob Objective Active Medications: Albuterol/Ipratropium (Duoneb (Albuterol 2.5 Mg/Ipratropium 0.5 Mg)) 1 neb INH Q4H PRN PRN Reason: SOB/WHEEZING Cholecalciferol (Vitamin D Tab*) 2,000 units PO BEDTIME [facility] Last Admin: 04/25/19 22:36 Dose: 2,000 units Famotidine (Pepcid Tab*) 20 mg PO DAILY [facility] Last Admin: 04/26/19 08:41 Dose: 20 mg Fentanyl (Duragesic Patch 25 Mcg/Hr*) 25 mcg TRANSDERM Q72H [facility] Last Admin: 04/24/19 16:08 Dose: 25 mcg Folic Acid (Folvite Tab*) 1 mg PO DAILY [facility] Last Admin: 04/26/19 08:40 Dose: 1 mg Furosemide (Lasix Tab*) 20 mg PO DAILY [facility] Last Admin: 04/26/19 08:41 Dose: 20 mg Gabapentin (Neurontin Cap(*)) 300 mg PO QPM [facility] Last Admin: 04/25/19 16:33 Dose: 300 mg Hydroxyzine HCl (Atarax Tab*) 10 mg PO Q6H PRN PRN Reason: ANXIETY Piperacillin Sod/Tazobactam (Sod 3.375 gm/ Sodium Chloride) 100 mls @ 25 mls/ hr IVPB Q8H [facility] Stop: 04/28/19 15:59 Last Admin: 04/26/19 07:50 Dose: 25 mls/hr Calcium Gluconate 2 gm/ Sodium (Chloride) 120 mls @ 60 mls/hr IV ONCE ONE Stop: 04/26/19 16:26 Magnesium Sulfate (Magnesium Sulfate 2 Gm Iv*) 2 gm in 50 mls @ 50 mls/hr IVPB ONCE ONE Stop: 04/26/19 15:26 Lactulose (Lactulose*) 15 ml PO QID [facility] Last Admin: 04/26/19 14:03 Dose: 15 ml Lidocaine (Lidoderm 5% Patch*) 1 patch TRANSDERM DAILY [facility] Last Admin: 04/26/19 08:39 Dose: 1 patch Lorazepam (Ativan Tab(*)) 0.5 mg PO Q6H PRN PRN Reason: ANXIETY Multivitamins/Minerals (Theragran/Minerals Tab*) 1 tab PO DAILY [facility] Last Admin: 04/26/19 08:40 Dose: 1 tab Non-Formulary Medication (Fluticasone Furoate [Arnuity Ellipta]) 1 inh INH DAILY [facility] Last Admin: 04/26/19 08:41 Dose: Not Given Oxycodone HCl (Roxycodone Tab*) 20 mg PO Q4H PRN PRN Reason: PAIN Last Admin: 04/26/19 11:10 Dose: 20 mg Pharmacy Consult (Zosyn Per Pharmacy*) 1 note FOLLOW UP .ZOSYN PER PHARMACY [facility] Pharmacy Profile Note (Lidocaine Patch Remove*) 1 note N/A 2100 [facility] Last Admin: 04/25/19 22:38 Dose: 1 note Pharmacy Profile Note (Fentanyl Patch Check Q Shift) 1 note N/A 0700,1900 [facility] Last Admin: 04/26/19 07:10 Dose: 1 note Potassium Chloride (Klor Con Er Tab*) 40 meq PO ONCE ONE Stop: 04/26/19 14:29 Propranolol HCl (Inderal Tab*) 5 mg PO BID [facility] Last Admin: 04/26/19 11:09 Dose: 5 mg Sertraline HCl (Zoloft*) 50 mg PO DAILY [facility] Last Admin: 04/26/19 08:39 Dose: 50 mg Spironolactone (Aldactone Tab*) 50 mg PO DAILY [facility] Last Admin: 04/26/19 08:40 Dose: 50 mg Ursodiol (Actigall Cap*) 600 mg PO DAILY [facility] Last Admin: 04/26/19 08:40 Dose: 600 mg Ursodiol (Actigall Cap*) 300 mg PO BEDTIME [facility] Last Admin: 04/25/19 22:36 Dose: 300 mg Vitamin B Complex/Vitamin E (B Complex-50*) 1 tab PO DAILY [facility] Last Admin: 04/26/19 08:40 Dose: 1 tab Vital Signs - 8 hr 04/26/19 04/26/19 04/26/19 08:00 08:02 08:45 Temperature 98.1 F Pulse Rate 58 Respiratory 16 24 18 Rate Blood Pressure 109/76 (mmHg) O2 Sat by Pulse 90 Oximetry 04/26/19 04/26/19 04/26/19 10:53 11:10 12:00 Temperature 97.9 F Pulse Rate 58 Respiratory 24 16 16 Rate Blood Pressure 120/60 (mmHg) O2 Sat by Pulse 95 Oximetry 04/26/19 13:41 Temperature Pulse Rate Respiratory 22 Rate Blood Pressure (mmHg) O2 Sat by Pulse Oximetry Oxygen Devices in Use Now: Nasal Cannula Eyes: No Scleral Icterus Neck: NL Appearance and Movements; NL JVP Respiratory: - - bilateral crackles occasional rhonchi Cardiovascular: NL Sounds; No Murmurs; No JVD Abdominal: NL Sounds; No Tenderness; No Distention Extremities: - - 1+ Edema Neurological: Alert and Oriented x 3 Result Diagrams: 04/26/19 06:51 04/26/19 06:51 Additional Lab and Data: Laboratory Results - last 24 hr 04/25/19 04/25/19 04/25/19 06:16 06:16 06:16 WBC 4.4 RBC 4.17 L Hgb 13.2 L Hct 39 L MCV 92 MCH 32 H MCHC 34 RDW 17 H Plt Count 44 L MPV 8.8 INR (Anticoag Therapy) 2.42 H Sodium 139 Potassium 3.3 L Chloride 108 Carbon Dioxide 24 Anion Gap 7 BUN 16 Creatinine 0.64 L Est GFR ( Amer) 153.3 Est GFR (Non-Af Amer) 126.7 BUN/Creatinine Ratio 25.0 H Glucose 93 Calcium 8.3 L Ionized Calcium Phosphorus 3.7 Magnesium 1.5 L Total Bilirubin 2.70 H AST 53 H ALT 17 Alkaline Phosphatase 60 B-Natriuretic Peptide Total Protein 5.5 L Albumin 2.7 L Globulin 2.8 Albumin/Globulin Ratio 1.0 04/25/19 04/25/19 06:17 06:17 WBC RBC Hgb Hct MCV MCH MCHC RDW Plt Count MPV INR (Anticoag Therapy) Sodium Potassium Chloride Carbon Dioxide Anion Gap BUN Creatinine Est GFR ( Amer) Est GFR (Non-Af Amer) BUN/Creatinine Ratio Glucose Calcium Ionized Calcium 1.11 L Phosphorus Magnesium Total Bilirubin AST ALT Alkaline Phosphatase B-Natriuretic Peptide 284 H Total Protein Albumin Globulin Albumin/Globulin Ratio Microbiology and Other Data: Microbiology 04/21/19 12:44 Blood Venous Aerobic Blood Culture - Preliminary No Growth Day 3 04/21/19 12:44 Blood Venous Anaerobic Blood Culture - Preliminary No Growth Day 3 04/21/19 11:50 Blood Venous Aerobic Blood Culture - Preliminary No Growth Day 3 04/21/19 11:50 Blood Venous Anaerobic Blood Culture - Preliminary No Growth Day 3 04/21/19 14:30 Nasal Nasal Screen MRSA (PCR) - Final Mrsa Not Detected Assess/Plan/Problems-Billing Assessment: 64 year old male with pmh significant for COPD, CAD, HTN, cirrhosis; who was recently admitted for hepatic encephalopathy, atelectasis, and gastrointeritis like symptoms; who presented to the ED in severe sepsis, resp failure, and LLL pneumonia - Patient Problems (1) Electrolyte abnormality Current Visit: Yes Status: Acute Code(s): E87.8 - OTH DISORDERS OF ELECTROLYTE AND FLUID BALANCE, NEC SNOMED Code(s): 360895869 Comment: - K and Mag low again today, therefore, replacement ordered again. - Recheck tomorrow - Restarted patient's home Aldactone which may help with K - Sinus on tele -Ca also replaced (2) Abdominal pain Current Visit: Yes Status: Acute Code(s): R10.9 - UNSPECIFIED ABDOMINAL PAIN SNOMED Code(s): 19763294 Comment: - Denies abd pain today. Patient on Ursodiol - Daughter report patient had been complaining of abd pain on admission - CT revealed liver cirrhosis, spenomegaly with varicies consistent with portal htn, distended gall bladder and cholethiasis. - HIDA and US obtained; results reviewed with surg by ICU provider; recommended likely not acute cholecystitis, even if mild Zosyn would cover, if no improvement with abx consider MRCP. - Total cam decreasing. AST mildly elevated. Continue to monitor. (3) Acute respiratory failure with hypoxia Current Visit: Yes Status: Acute Code(s): J96.01 - ACUTE RESPIRATORY FAILURE WITH HYPOXIA SNOMED Code(s): 01235206 Comment: - Improving. - Secondary to pneumonia - Currently on 3 L. Per CW on 2L NC at home (4) Cirrhosis Current Visit: Yes Status: Acute Comment: - Cont lasix and aldactone (lower dose) - Reduce lactolose due to diarrhea (5) Pneumonia Current Visit: Yes Status: Acute Code(s): J18.9 - PNEUMONIA, UNSPECIFIED ORGANISM SNOMED Code(s): 050950965 Comment: - Cont Zosyn. Today is day 5 (6) Sepsis Current Visit: Yes Status: Acute Comment: - Resolved - Currently on 3L NC and per Conveyor Attendant patient is on 2L NC at home at all times. Patient is not the best historian. - Met criteria on 04/21 with hypoxia, hypotension, reported fever, and sourse of LLL pneumonia. - Previously needed Bipap or Mask - Hypotension resolved, therefore, restarted home medications but at lower doses - No recorded fever while admitted. - Cont Zosyn for LLL pneumonia. Today is day 5. (7) Hypertension Current Visit: Yes Status: Acute Code(s): I10 - ESSENTIAL (PRIMARY) HYPERTENSION SNOMED Code(s): 88295441 Comment: BP in normal low range Blu continue lasix aldactone and can increase if needed. Will d/c amlodipine and losartan continue propranolol which he is likely taking for propylaxis of variceal bleeding as well in setting of cirrhosis (8) SOB (shortness of breath) Current Visit: Yes Status: Acute Code(s): R06.02 - SHORTNESS OF BREATH SNOMED Code(s): 069804397 Comment: Sec to pneumonia Zosyn as above Crackles on exam will get cxr to eval for pul edema and if so will increase diuretics Status and Disposition: Inpatient.
[2019-04-26] MEDS ORDERED: Calcium Gluconate INJ* 2 GM in NS 0.9% 100 ML* 100 ML IV ONE (15:00)
[2019-04-26] MEDS: Gabapentin CAP(*) 300 MG PO SCH (17:38)
[2019-04-26] MEDS: Cholecalciferol TAB* 1000 UNITS PO SCH (20:45)
[2019-04-26] MEDS: Lidocaine Patch REMOVE* 1 NOTE MISC SCH (21:26)
[2019-04-27] MEDS: ZOSYN 3.375 GM Q8H per EXTENDED INFUSION IVPB SCH ×8 (01:15→23:49)
[2019-04-27] MEDS: oxyCODONE TAB* 5 MG TAB PO PRN ×6 (01:15→23:34)
[2019-04-27] MEDS: fentaNYL Patch Check Q Shift 1 NOTE SCH ×2 (06:13→18:55)
[2019-04-27 07:03] LABS: ABS Eosinophils 0.2 10^3/ul (0-0.6); ABS Lymphocytes 1.2 10^3/ul (1.0-4.8); ABS Monocytes 0.7 10^3/ul (0-0.8); Eosinophil % 3.2 %; Hematocrit 38 % (42-52); Lymphocyte % 24.4 %; Mean Corpuscular HGB Conc 34 g/dL (31-36); Mean Corpuscular Hemoglobin 32 pg (27-31); Mean Corpuscular Volume 93 fL (80-94); Mean Platelet Volume 9.4 fL (7.4-10.4); Nucleated Red Blood Cells % 0.1; Platelet Count 46 10^3/uL (150-450); Red Cell Distribution Width 16 % (10-15); White Blood Count 5.1 10^3/uL (3.5-10.8)
[2019-04-27] MEDS: Ursodiol CAP* 300 MG PO SCH ×2 (07:15→22:26)
[2019-04-27] MEDS: Propranolol TAB* 10 MG PO SCH ×2 (07:15→22:26)
[2019-04-27] MEDS: Folic Acid TAB* 1 MG PO SCH (07:15)
[2019-04-27] MEDS: Lactulose* 15 ML UDC PO SCH ×4 (07:15→23:40)
[2019-04-27] MEDS: Vitamin B Complex TAB PO SCH (07:16)
[2019-04-27] MEDS: Famotidine TAB* 20 MG PO SCH (07:16)
[2019-04-27] MEDS: Furosemide TAB* 20 MG PO SCH (07:16)
[2019-04-27] MEDS: Sertraline* 50 MG TAB PO SCH (07:16)
[2019-04-27] MEDS: FLUTICASONE FUROATE INH SCH (07:16)
[2019-04-27] MEDS: Spironolactone TAB* 25 MG PO SCH (07:16)
[2019-04-27] MEDS: Lidocaine PATCH 5%* 1 PATCH TRANSDERM SCH (07:16)
[2019-04-27] MEDS: Multivitamins/Minerals TAB PO SCH (07:16)
[2019-04-27 07:17] LABS: Calcium 8.5 mg/dL (8.6-10.3); EGFR African American 140.6 (>60); EGFR Non-African American 116.2 (>60); Potassium 3.8 mmol/L (3.5-5.0)
[2019-04-27] MEDS: fentaNYL PATCH 25 MCG/HR TRANSDERM SCH ×2 (12:26→13:01)
--- NOTE | 2019-04-27 15:04 | PN ---
Subjective Date of Service: 04/27/19 Interval History: Reports improvement in breathing.On RA now.Was constantly needing oxygen before.No abd pain Objective Active Medications: Albuterol/Ipratropium (Duoneb (Albuterol 2.5 Mg/Ipratropium 0.5 Mg)) 1 neb INH Q4H PRN PRN Reason: SOB/WHEEZING Cholecalciferol (Vitamin D Tab*) 2,000 units PO BEDTIME [facility] Last Admin: 04/26/19 20:45 Dose: 2,000 units Famotidine (Pepcid Tab*) 20 mg PO DAILY [facility] Last Admin: 04/27/19 07:16 Dose: 20 mg Fentanyl (Duragesic Patch 25 Mcg/Hr*) 25 mcg TRANSDERM Q72H [facility] Last Admin: 04/27/19 13:01 Dose: Not Given Folic Acid (Folvite Tab*) 1 mg PO DAILY [facility] Last Admin: 04/27/19 07:15 Dose: 1 mg Furosemide (Lasix Tab*) 20 mg PO DAILY [facility] Last Admin: 04/27/19 07:16 Dose: 20 mg Gabapentin (Neurontin Cap(*)) 300 mg PO QPM [facility] Last Admin: 04/26/19 17:38 Dose: 300 mg Hydroxyzine HCl (Atarax Tab*) 10 mg PO Q6H PRN PRN Reason: ANXIETY Piperacillin Sod/Tazobactam (Sod 3.375 gm/ Sodium Chloride) 100 mls @ 25 mls/ hr IVPB Q8H [facility] Stop: 04/28/19 15:59 Last Admin: 04/27/19 07:15 Dose: 25 mls/hr Lactulose (Lactulose*) 15 ml PO QID [facility] Last Admin: 04/27/19 12:26 Dose: 15 ml Lidocaine (Lidoderm 5% Patch*) 1 patch TRANSDERM DAILY [facility] Last Admin: 04/27/19 07:16 Dose: 1 patch Lorazepam (Ativan Tab(*)) 0.5 mg PO Q6H PRN PRN Reason: ANXIETY Multivitamins/Minerals (Theragran/Minerals Tab*) 1 tab PO DAILY [facility] Last Admin: 04/27/19 07:16 Dose: 1 tab Non-Formulary Medication (Fluticasone Furoate [Arnuity Ellipta]) 1 inh INH DAILY [facility] Last Admin: 06/16/19 07:16 Dose: Not Given Oxycodone HCl (Roxycodone Tab*) 20 mg PO Q4H PRN PRN Reason: PAIN Last Admin: 04/27/19 13:56 Dose: 20 mg Pharmacy Consult (Zosyn Per Pharmacy*) 1 note FOLLOW UP .ZOSYN PER PHARMACY [facility] Pharmacy Profile Note (Lidocaine Patch Remove*) 1 note N/A 2100 [facility] Last Admin: 04/26/19 21:26 Dose: Not Given Pharmacy Profile Note (Fentanyl Patch Check Q Shift) 1 note N/A 0700,1900 [facility] Last Admin: 04/27/19 06:13 Dose: 1 note Propranolol HCl (Inderal Tab*) 5 mg PO BID [facility] Last Admin: 04/27/19 07:15 Dose: 5 mg Sertraline HCl (Zoloft*) 50 mg PO DAILY [facility] Last Admin: 04/27/19 07:16 Dose: 50 mg Spironolactone (Aldactone Tab*) 50 mg PO DAILY [facility] Last Admin: 04/27/19 07:16 Dose: 50 mg Ursodiol (Actigall Cap*) 600 mg PO DAILY [facility] Last Admin: 04/27/19 07:15 Dose: 600 mg Ursodiol (Actigall Cap*) 300 mg PO BEDTIME [facility] Last Admin: 04/26/19 20:44 Dose: 300 mg Vitamin B Complex/Vitamin E (B Complex-50*) 1 tab PO DAILY [facility] Last Admin: 04/27/19 07:16 Dose: 1 tab Vital Signs - 8 hr 04/27/19 04/27/19 04/27/19 07:13 07:26 09:17 Temperature 98.0 F Pulse Rate 62 Respiratory 16 16 16 Rate Blood Pressure 112/66 (mmHg) O2 Sat by Pulse 93 Oximetry 04/27/19 04/27/19 04/27/19 10:16 10:49 11:06 Temperature Pulse Rate Respiratory 18 18 18 Rate Blood Pressure (mmHg) O2 Sat by Pulse Oximetry 04/27/19 04/27/19 04/27/19 11:29 12:26 13:56 Temperature 98.1 F Pulse Rate 63 Respiratory 16 18 18 Rate Blood Pressure 116/59 (mmHg) O2 Sat by Pulse 91 Oximetry Oxygen Devices in Use Now: None Eyes: No Scleral Icterus Neck: NL Appearance and Movements; NL JVP Respiratory: Symmetrical Chest Expansion and Respiratory Effort, Clear to Auscultation Cardiovascular: NL Sounds; No Murmurs; No JVD Abdominal: NL Sounds; No Tenderness; No Distention Extremities: - - 2+ Edema Neurological: Alert and Oriented x 3 Result Diagrams: 04/27/19 06:45 04/27/19 06:45 Additional Lab and Data: Laboratory Results - last 24 hr 04/25/19 04/25/19 04/25/19 06:16 06:16 06:16 WBC 4.4 RBC 4.17 L Hgb 13.2 L Hct 39 L MCV 92 MCH 32 H MCHC 34 RDW 17 H Plt Count 44 L MPV 8.8 INR (Anticoag Therapy) 2.42 H Sodium 139 Potassium 3.3 L Chloride 108 Carbon Dioxide 24 Anion Gap 7 BUN 16 Creatinine 0.64 L Est GFR ( Amer) 153.3 Est GFR (Non-Af Amer) 126.7 BUN/Creatinine Ratio 25.0 H Glucose 93 Calcium 8.3 L Ionized Calcium Phosphorus 3.7 Magnesium 1.5 L Total Bilirubin 2.70 H AST 53 H ALT 17 Alkaline Phosphatase 60 B-Natriuretic Peptide Total Protein 5.5 L Albumin 2.7 L Globulin 2.8 Albumin/Globulin Ratio 1.0 04/25/19 04/25/19 06:17 06:17 WBC RBC Hgb Hct MCV MCH MCHC RDW Plt Count MPV INR (Anticoag Therapy) Sodium Potassium Chloride Carbon Dioxide Anion Gap BUN Creatinine Est GFR ( Amer) Est GFR (Non-Af Amer) BUN/Creatinine Ratio Glucose Calcium Ionized Calcium 1.11 L Phosphorus Magnesium Total Bilirubin AST ALT Alkaline Phosphatase B-Natriuretic Peptide 284 H Total Protein Albumin Globulin Albumin/Globulin Ratio Microbiology and Other Data: Microbiology 04/21/19 12:44 Blood Venous Aerobic Blood Culture - Preliminary No Growth Day 3 04/21/19 12:44 Blood Venous Anaerobic Blood Culture - Preliminary No Growth Day 3 04/21/19 11:50 Blood Venous Aerobic Blood Culture - Preliminary No Growth Day 3 04/21/19 11:50 Blood Venous Anaerobic Blood Culture - Preliminary No Growth Day 3 04/21/19 14:30 Nasal Nasal Screen MRSA (PCR) - Final Mrsa Not Detected Assess/Plan/Problems-Billing Assessment: 64 year old male with pmh significant for COPD, CAD, HTN, cirrhosis; who was recently admitted for hepatic encephalopathy, atelectasis, and gastrointeritis like symptoms; who presented to the ED in severe sepsis, resp failure, and LLL pneumonia - Patient Problems (1) Sepsis Current Visit: Yes Status: Acute Comment: - Resolved - patient is on 2L NC at home at all times. Patient is not the best historian. - Met criteria on 04/21 with hypoxia, hypotension, reported fever, and sourse of LLL pneumonia. - Previously needed Bipap or Mask - Hypotension resolved, therefore, restarted home medications but at lower doses - No recorded fever while admitted. - Cont Zosyn for LLL pneumonia. Today is day 6. (2) Pneumonia Current Visit: Yes Status: Acute Code(s): J18.9 - PNEUMONIA, UNSPECIFIED ORGANISM SNOMED Code(s): 529698346 Comment: - Cont Zosyn. Today is day 6 -Improving (3) Electrolyte abnormality Current Visit: Yes Status: Acute Code(s): E87.8 - OTH DISORDERS OF ELECTROLYTE AND FLUID BALANCE, NEC SNOMED Code(s): 067942520 Comment: - K and Mag replaced - Restarted patient's home Aldactone which may help with K - Sinus on tele -Ca also replaced (4) Abdominal pain Current Visit: Yes Status: Acute Code(s): R10.9 - UNSPECIFIED ABDOMINAL PAIN SNOMED Code(s): 89598614 Comment: - Denies abd pain today. Patient on Ursodiol - Daughter report patient had been complaining of abd pain on admission - CT revealed liver cirrhosis, spenomegaly with varicies consistent with portal htn, distended gall bladder and cholethiasis. - HIDA and US obtained; results reviewed with surg by ICU provider; recommended likely not acute cholecystitis, even if mild Zosyn would cover, if no improvement with abx consider MRCP. - Total cam decreasing. Continue to monitor. (5) Acute respiratory failure with hypoxia Current Visit: Yes Status: Acute Code(s): J96.01 - ACUTE RESPIRATORY FAILURE WITH HYPOXIA SNOMED Code(s): 83405060 Comment: - Improving. - Secondary to pneumonia - Able to tolerate RA for first time today in the day. Per CW on 2L NC at home -Will eval through day (6) Cirrhosis Current Visit: Yes Status: Acute Comment: - Cont lasix and aldactone (lower dose) - Reduce lactolose due to diarrhea (7) Hypertension Current Visit: Yes Status: Acute Code(s): I10 - ESSENTIAL (PRIMARY) HYPERTENSION SNOMED Code(s): 36807400 Comment: BP in normal low range Blu continue lasix aldactone and can increase if needed. Will d/c amlodipine and losartan continue propranolol which he is likely taking for propylaxis of variceal bleeding as well in setting of cirrhosis (8) SOB (shortness of breath) Current Visit: Yes Status: Acute Code(s): R06.02 - SHORTNESS OF BREATH SNOMED Code(s): 272787095 Comment: Sec to pneumonia Zosyn as above improving Status and Disposition: Inpatient.
[2019-04-27] MEDS: Gabapentin CAP(*) 300 MG PO SCH (16:37)
[2019-04-27] MEDS: Cholecalciferol TAB* 1000 UNITS PO SCH (22:26)
[2019-04-27] MEDS: Lidocaine Patch REMOVE* 1 NOTE MISC SCH (23:42)
[2019-04-28] MEDS: oxyCODONE TAB* 5 MG TAB PO PRN ×3 (06:27→17:32)
[2019-04-28 06:32] LABS: CO2 Carbon Dioxide 27 mmol/L (22-32); Calcium 8.4 mg/dL (8.6-10.3); Chloride 105 mmol/L (101-111); Sodium 135 mmol/L (135-145)
[2019-04-28 06:36] LABS: ABS Basophils 0.1 10^3/ul (0-0.2); ABS Eosinophils 0.1 10^3/ul (0-0.6); ABS Lymphocytes 0.9 10^3/ul (1.0-4.8); ABS Monocytes 0.3 10^3/ul (0-0.8); ABS Neutrophils 3.6 10^3/ul (1.5-7.7); Hematocrit 39 % (42-52); Hemoglobin 13.2 g/dL (14.0-18.0); Lymphocyte % 17.6 %; Mean Corpuscular HGB Conc 34 g/dL (31-36); Mean Corpuscular Hemoglobin 32 pg (27-31); Mean Corpuscular Volume 93 fL (80-94); Mean Platelet Volume 8.8 fL (7.4-10.4); Nucleated Red Blood Cells % 0.1; Platelet Count 51 10^3/uL (150-450); Red Blood Count 4.14 10^6 /uL (4.18-5.48); Red Cell Distribution Width 16 % (10-15); White Blood Count 4.9 10^3/uL (3.5-10.8)
[2019-04-28 06:38] LABS: Blood Urea Nitrogen 14 mg/dL (6-24); EGFR African American 178.9 (>60); EGFR Non-African American 147.8 (>60); Glucose 120 mg/dL (70-100)
[2019-04-28 06:48] LABS: Anion Gap 3 mmol/L (2-11)
[2019-04-28] MEDS ORDERED: Magnesium Oxide TAB* 400 MG PO SCH (09:00)
[2019-04-28 09:14] LABS: Magnesium 1.7 mg/dL (1.9-2.7)
[2019-04-28] MEDS: fentaNYL Patch Check Q Shift 1 NOTE SCH (09:17)
[2019-04-28] MEDS: Ursodiol CAP* 300 MG PO SCH (09:26)
[2019-04-28] MEDS: Famotidine TAB* 20 MG PO SCH (09:27)
[2019-04-28] MEDS: Folic Acid TAB* 1 MG PO SCH (09:27)
[2019-04-28] MEDS: Furosemide TAB* 20 MG PO SCH (09:27)
[2019-04-28] MEDS: Propranolol TAB* 10 MG PO SCH (09:27)
[2019-04-28] MEDS: Sertraline* 50 MG TAB PO SCH (09:27)
[2019-04-28] MEDS: Spironolactone TAB* 25 MG PO SCH (09:27)
[2019-04-28] MEDS: Lactulose* 15 ML UDC PO SCH ×2 (09:28→13:38)
[2019-04-28] MEDS: Vitamin B Complex TAB PO SCH (09:28)
[2019-04-28] MEDS: Lidocaine PATCH 5%* 1 PATCH TRANSDERM SCH (09:34)
[2019-04-28] MEDS: Multivitamins/Minerals TAB PO SCH (09:37)
[2019-04-28] MEDS: FLUTICASONE FUROATE INH SCH (10:59)
[2019-04-28] MEDS ORDERED: Magnesium Sulfate 2 GM IV* 2 GM/50 ML BAG IVPB ONE (11:01)
[2019-04-28] MEDS: ZOSYN 3.375 GM Q8H per EXTENDED INFUSION IVPB SCH ×2 (11:24)
[2019-04-28 16:08] VITALS: BP 118/58
--- NOTE | 2019-04-28 16:38 | DS ---
CC: Dr. Armstrong; Dr. Molina * DISCHARGE SUMMARY: DATE OF ADMISSION: 04/21/19 DATE OF DISCHARGE: To home, 04/28/19. PRIMARY CARE PROVIDER: Dr. Molina. DISPOSITION AT DISCHARGE: To home. CONDITION AT DISCHARGE: Stable. DISCHARGE DIAGNOSES: 1. Severe sepsis due to left lower lobe pneumonia. 2. Acute hypoxemic respiratory failure requiring BiPAP at admission due to above. 3. Distended gallbladder with abnormal HIDA scan, likely related to sepsis and infection that resolved. That was discussed with our surgical service. 4. Acute renal failure at admission with creatinine of 2.27 at admission that resolved, due to severe sepsis. 5. Abnormal coagulation studies with INR of 2.4 on 04/22/19 in a patient with history of chronic kidney disease and chronically elevated INR with baseline at 2.1. The abnormal INR was likely due to combination of chronic liver disease, liver cirrhosis on top of sepsis. INR was back to the patient's baseline by . 6. Hypomagnesemia. 7. Elevation of troponin, likely due to demand ischemia. PAST MEDICAL HISTORY: 1. History of coronary artery disease. 2. Hypertension. 3. COPD. 4. History of alcoholic liver cirrhosis with chronic thrombocytopenia. MEDICATIONS AT DISCHARGE: Include 1. Mag-Ox 800 mg daily. The remaining medications are unchanged and include: 1. Amlodipine 5 mg daily. 2. Artificial tears on a p.r.n. basis. 3. Azelastine 0.15% two sprays both nostrils twice a day p.r.n. 4. Calcipotriene cream 0.005% topical b.i.d. 5. Vitamin D3 4000 units daily in a.m. and 2000 units at bedtime. 6. Fentanyl patch 25 mcg every 3 days. 7. Lidex cream 0.05% topical daily p.r.n. 8. Arnuity Ellipta 100 mcg inhalation daily. 9. Folic acid 1 mg daily. 10. Furosemide 20 mg daily in the morning and 10 mg q.p.m. 11. Gabapentin 300 mg q.p.m. 12. Hydroxyzine 1 tablet 25 mg daily p.r.n. anxiety. 13. Lactulose 15 mL 4 times a day. 14. Lidoderm patch 5% apply transdermally to the affected areas daily p.r.n. 15. Lorazepam 0.5 mg on a p.r.n. basis. 16. Colace 100 mg daily. 17. Multivitamin 1 tablet daily. 18. Nitroglycerin 0.3 mg sublingually p.r.n. chest pain. 19. Oxycodone 20 mg every 4 hours p.r.n. 20. Protonix 40 mg daily. 21. Propranolol 5 mg b.i.d. 22. Zantac 150 mg b.i.d. 23. Zoloft 50 mg daily. 24. Aldactone 100 mg daily. 25. Triamcinolone cream 1 application b.i.d. p.r.n. 26. Ursodiol 375 mg q.p.m. and 500 mg q.a.m. 27. Vitamin B complex 1 capsule daily. LABORATORY DATA AND STUDIES PERFORMED DURING THE HOSPITAL STAY: Included on , sodium of 135, potassium 4.3, chloride 112, carbon dioxide 27, BUN 14, creatinine 0.56, magnesium 1.7. Liver function tests last obtained on 04/26/19: Total bilirubin of 2.9, AST of 41, ALT of 15, alkaline phosphatase of 72. Last CBC obtained on 04/28/19: White blood cell count of 4.9, hemoglobin of 13.2, hematocrit of 39, and platelets of 61. Last INR reported on 04/26/19 was 2.34. Microbiology studies showed blood cultures for bacteria were negative. Transthoracic echocardiogram obtained on 04/22/19: EF of 55% to 60% with no regional wall motion abnormalities with septal flattening consistent with RV volume or pressure overload. Left atrium is severely dilated. Focal calcification of posterior leaflet of the mitral valve with trace regurgitation. The aortic valve showed focal calcification involving the coronary cusp with no evidence of stenosis and trace regurgitation. Tricuspid valve with [id number] regurgitation. Systolic pulmonary pressure is severely increased, estimated at 75 mmHg. Comparing with study from January of 2014, little change. Chest x-ray last obtained on 04/26/19, impression: "Hyperinflation. Small left pleural effusion with patchy left pericardial consolidation." HIDA scan obtained on 04/21/19, impression: "Nonvisualization of the gallbladder suggesting the possibility of acute cholecystitis." Abdomen and pelvis CT obtained on 04/21/19, impression: "Left lower lobe infiltrate suggestive of pneumonia. Liver has cirrhotic morphology. There is splenomegaly and varices consistent with portal hypertension. Distended gallbladder with cholelithiasis." Chest CT obtained on 04/21/19, impression: "Left lower lobe pneumonia." HOSPITALIZATION COURSE: Mr. Mcclure is a 64-year-old male with history of alcoholic liver cirrhosis, who presented to the hospital severely hypoxemic on 04/21/19, initially requiring BiPAP. He was seen by our rock star, Dr. Armstrong. Throughout the patient's hospital stay, he was noted to have elevated INR, acute renal failure due to sepsis, hypoxemia requiring BiPAP at admission. There was noted to be gallbladder distention and positive HIDA scan for possibility of cholecystitis. Dr. Armstrong discussed the case with our surgeons on-call, who thought that likely the patient's presentation with left lower lobe pneumonia and severe sepsis contributed to the patient's abnormal gallbladder visualization. They recommended continuation of treatment for pneumonia. With continuation of treatment for pneumonia, the patient's chronic abdominal pain has improved. He also had left-sided chest pain that was pleuritic, left upper quadrant abdominal pain that was likely due to referred pleuritic pain that resolved by the time of discharge. The patient's hypoxemia has slowly resolved and by the time of the patient's discharge, he was on room air. He completed 7 days of Zosyn treatment during his hospital stay and by the time of discharge, he is not going to be discharged with any antibiotics. The patient is going to be discharged home with recommendation to follow up with his primary care provider in 4 to 7 days. His medications at discharge are basically unchanged from admission apart from starting the patient on magnesium supplement. PHYSICAL EXAMINATION: At the time of discharge, blood pressure of 116/58, heart rate of 59 and regular, respiratory rate 20, oxygen saturation 92% on room air, temperature of 98.4. General: The patient is a pleasant 64-year-old male, who is Vincentian-speaking only. The patient is in no acute distress. The patient is alert and oriented x2. HEENT: Head: Atraumatic, normocephalic. Eyes: Pupils are equal, reactive to light and accommodation. Oropharynx is clear. Mucosa moist. Neck: Supple. No JVD. No bruits bilaterally. Cardiovascular: Regular rate and rhythm. No murmur. Respiratory: Faint crackles in left lower base, otherwise clear. Abdomen: Soft, nontender. Bowel sounds are present in all 4 quadrants. Slightly distended on evaluation. Extremities: +2 pitting pedal edema bilaterally. Pulses are +2 bilaterally. There is no clubbing or cyanosis. On neuro evaluation, speech is clear. Cranial nerves II through XII are grossly intact. Motor strength is 5/5 bilaterally. The patient was discharged as per discussion with the patient's daughter, Magaly , who was present on the phone during the patient's last visit prior to discharge. CONDITION AT DISCHARGE: Stable. DISPOSITION AT DISCHARGE: Home. Please note that this is a short summary of the patient's hospital stay. Please refer to further medical records for details. TIME SPENT: Approximately 45 minutes was spent on the patient's discharge. [id number]/[facility] #: [id number] SUSANA
[2019-04-28] MEDS ORDERED: Mometasone 220 MCG MDI INH SCH (18:00)
== END 2019-04-29 02:59 | disposition home or self-care (01) | DRG 720 ==
LOC: ED 11:30 → ICU 13:53 → MED 04-23 14:32
PROVIDERS: ADMIT Internal Medicine Critical Care Medicine; ATTEND Internal Medicine
DX: A41.9 Sepsis, unspecified organism (principal); R65.21 Severe sepsis with septic shock; J18.1 Lobar pneumonia, unspecified organism; J96.01 Acute respiratory failure with hypoxia; N17.9 Acute kidney failure, unspecified; K76.6 Portal hypertension; E72.20 Disorder of urea cycle metabolism, unspecified; J44.0 Chronic obstructive pulmonary disease with (acute) lower respiratory infection; I24.8 Other forms of acute ischemic heart disease; I13.0 Hypertensive heart and chronic kidney disease with heart failure and stage 1 through stage 4 chronic kidney disease, or unspecified chronic kidney disease; D68.9 Coagulation defect, unspecified; D69.6 Thrombocytopenia, unspecified; E83.51 Hypocalcemia; I27.20 Pulmonary hypertension, unspecified; K80.20 Calculus of gallbladder without cholecystitis without obstruction; K74.60 Unspecified cirrhosis of liver; K21.9 Gastro-esophageal reflux disease without esophagitis; M19.90 Unspecified osteoarthritis, unspecified site; M79.7 Fibromyalgia; G25.81 Restless legs syndrome; F41.9 Anxiety disorder, unspecified; F17.210 Nicotine dependence, cigarettes, uncomplicated; K82.8 Other specified diseases of gallbladder; I25.10 Atherosclerotic heart disease of native coronary artery without angina pectoris; I50.9 Heart failure, unspecified; E87.5 Hyperkalemia; E83.42 Hypomagnesemia; N18.9 Chronic kidney disease, unspecified; I08.3 Combined rheumatic disorders of mitral, aortic and tricuspid valves; K72.90 Hepatic failure, unspecified without coma; Z86.73 Personal history of transient ischemic attack (TIA), and cerebral infarction without residual deficits; Z87.442 Personal history of urinary calculi; Z82.49 Family history of ischemic heart disease and other diseases of the circulatory system; E83.39 Other disorders of phosphorus metabolism
CPT/HCPCS: 36415; 71045; 71046; 71250; 74176; 76705; 78226; 80048; 80053; 81003; 82140; 82330; 82803; 83605; 83735; 83880; 84100; 84484; 85025; 85027; 85060; 85610; 85730; 87040; 87641; 93005; 93306; 99285; 99406; A9270-GY; A9537; J0610; J1650; J1940; J2543; J3475; P9047

== ENCOUNTER 2021-10-13 18:02 | Inpatient (IN) ==
[2021-10-13] MEDS ORDERED: Albuterol HFA INHALER 8 gm MDI INH ONE (18:43)
[2021-10-13] MEDS ORDERED: Dexamethasone IV 4 MG/ML VIAL 1 ml VIAL IV SLOW PU ONE (18:43)
[2021-10-13 18:47] LABS: ABS Lymphocytes 0.6 10^3/ul (1.0-4.8); ABS Monocytes 0.6 10^3/ul (0-0.8); ABS Neutrophils 5.1 10^3/ul (1.5-7.7); Eosinophil % 0.2 %; Hematocrit 42 % (42-52); Hemoglobin 14.4 g/dL (14.0-18.0); Lymphocyte % 9.9 %; Mean Corpuscular HGB Conc 34 g/dL (31-36); Mean Corpuscular Hemoglobin 31 pg (27-31); Mean Corpuscular Volume 90 fL (80-94); Mean Platelet Volume 8.7 fL (7.4-10.4); Platelet Count 56 10^3/uL (150-450); Red Blood Count 4.68 10^6 /uL (4.18-5.48); Red Cell Distribution Width 16 % (10-15); White Blood Count 6.3 10^3/uL (3.5-10.8)
[2021-10-13 18:51] LABS: Activated Partial Thrombo Time 31.8 seconds (26.0-38.0); INR 1.95 (0.86-1.15)
[2021-10-13 18:53] LABS: PCO2 Arterial 38 mmHg (35-45); PO2 Arterial 79 mmHg (80-100)
[2021-10-13 18:56] LABS: Influenza A Molecular POSITIVE (Negative); Influenza B Molecular Negative (Negative)
[2021-10-13 18:58] LABS: ALT 23 U/L (7-52); AST 79 U/L (13-39); Albumin 3.5 g/dL (3.2-5.2); Albumin/Globulin Ratio 0.9 (1-3); Alkaline Phosphatase 84 U/L (35-149); Anion Gap 6 mmol/L (2-11); Blood Urea Nitrogen 41 mg/dL (6-24); C Reactive Protein 89.87 mg/L (<8.01); CO2 Carbon Dioxide 24 mmol/L (22-32); Calcium 8.9 mg/dL (8.6-10.3); Chloride 105 mmol/L (101-111); Globulin 3.9 g/dL (2-4); Glucose 113 mg/dL (70-100); Potassium 4.8 mmol/L (3.5-5.0); Sodium 135 mmol/L (135-145); Total Protein 7.4 g/dL (6.4-8.9); eGFR CKD-EPI 51.3 (>60)
[2021-10-13 19:05] LABS: Troponin I 0.04 ng/mL (<0.03)
[2021-10-13 19:07] LABS: LDH 259 U/L (140-271)
[2021-10-13] MEDS ORDERED: Iodixanol (CONTRAST) 320 MG/ML 100 ML SDV IV ONE (19:58)
[2021-10-13 20:25] LABS: Rapid COVID-19 Molecular Undetected (Undetected)
[2021-10-13] MEDS ORDERED: Albuterol HFA INHALER 8 gm MDI INH PRN (22:04)
[2021-10-13] MEDS ORDERED: Lactated Ringers 500 ml BAG 500 ML IV ONE (22:07)
[2021-10-13 22:31] LABS: Magnesium 1.7 mg/dL (1.9-2.7)
[2021-10-13 22:47] LABS: Urine Appearance Clear; Urine Bilirubin Negative (Negative); Urine Blood 1+ (Negative); Urine Color Amber; Urine Glucose Negative (Negative); Urine Ketones Negative (Negative); Urine Nitrite Negative (Negative); Urine Protein 2+(100 mg/dL) (Negative); Urine Specific Gravity 1.021 (1.002-1.030); Urine Urobilinogen Negative (Negative)
[2021-10-13 22:50] LABS: Urine Bacteria Absent (Absent); Urine Red Blood Cell Trace(0-2/hpf) (Absent); Urine White Blood Cell Absent (Absent)
[2021-10-13] MEDS: Heparin 5000 UNITS/ML 1 mL VIAL SUBCUT SCH (23:57)
[2021-10-13] MEDS: Lactulose 30 ml UDC PO SCH (23:58)
[2021-10-13] MEDS: Albuterol/Ipratropium NEB.SOL (2.5/0.5 MG) 3 ML NEB.SOLN INH SCH (23:58)
[2021-10-14] MEDS: oxyCODONE SR 10 mg TAB PO PRN ×3 (00:13→23:05)
[2021-10-14 00:54] LABS: Troponin I 0.05 ng/mL (<0.03)
[2021-10-14] MEDS ORDERED: Magnesium Sulfate IV 3 GM in NS 0.9% 100 ml BAG 100 ML IVPB ONE (01:00)
[2021-10-14 01:39] LABS: Indirect Bilirubin 0.8 mg/dL (0.3-1.0)
[2021-10-14] MEDS: Mometasone/Formoter 200/5 MDI INH SCH ×3 (02:18→19:36)
[2021-10-14 04:53] LABS: Troponin I 0.03 ng/mL (<0.03)
[2021-10-14] MEDS: cefTRIAXone 1 gm/50 mL NS BAG 1 GM/50 ML BAG IVPB SCH (05:01)
[2021-10-14 05:26] LABS: INR 1.92 (0.86-1.15)
[2021-10-14 05:35] LABS: Hematocrit 38 % (42-52); Hemoglobin 12.7 g/dL (14.0-18.0); Mean Corpuscular HGB Conc 33 g/dL (31-36); Mean Corpuscular Hemoglobin 30 pg (27-31); Mean Corpuscular Volume 91 fL (80-94); Mean Platelet Volume 9.3 fL (7.4-10.4); Platelet Count 36 10^3/uL (150-450); Red Blood Count 4.23 10^6 /uL (4.18-5.48); Red Cell Distribution Width 16 % (10-15); White Blood Count 2.7 10^3/uL (3.5-10.8)
[2021-10-14 05:38] LABS: Albumin/Globulin Ratio 0.9 (1-3); Calcium 8.3 mg/dL (8.6-10.3); Globulin 3.5 g/dL (2-4); Magnesium 2.3 mg/dL (1.9-2.7); Potassium 4.8 mmol/L (3.5-5.0); Total Bilirubin 1.2 mg/dL (0.2-1.0); Total Protein 6.5 g/dL (6.4-8.9); eGFR CKD-EPI 66.2 (>60)
[2021-10-14] MEDS: Heparin 5000 UNITS/ML 1 mL VIAL SUBCUT SCH (06:31)
[2021-10-14] MEDS: Albuterol/Ipratropium NEB.SOL (2.5/0.5 MG) 3 ML NEB.SOLN INH SCH ×2 (06:32→12:06)
[2021-10-14] MEDS: Lactulose 30 ml UDC PO SCH ×4 (10:47→23:05)
[2021-10-14] MEDS ORDERED: Albuterol/Ipratropium NEB.SOL (2.5/0.5 MG) 3 ML NEB.SOLN INH PRN (11:57)
[2021-10-14] MEDS: Albuterol HFA INHALER 8 gm MDI INH SCH ×2 (14:34→19:36)
[2021-10-15] MEDS ORDERED: cefTRIAXone 1 gm/50 mL NS BAG 1 GM/50 ML BAG IVPB SCH (04:00)
[2021-10-15] MEDS: cefTRIAXone 1 gm/50 mL NS BAG 1 GM/50 ML BAG IVPB SCH (05:25)
[2021-10-15] MEDS: Mometasone/Formoter 200/5 MDI INH SCH ×2 (08:31→19:47)
[2021-10-15] MEDS: Lactulose 30 ml UDC PO SCH ×4 (08:54→21:24)
[2021-10-15] MEDS ORDERED: diPHENhydraMINE IV 50 MG/ML 1 ml VIAL (BENADRYL) IV ONE (11:01)
[2021-10-15 11:46] LABS: Hematocrit 39 % (42-52); Hemoglobin 12.9 g/dL (14.0-18.0); Mean Corpuscular HGB Conc 33 g/dL (31-36); Mean Corpuscular Hemoglobin 30 pg (27-31); Mean Corpuscular Volume 90 fL (80-94); Mean Platelet Volume 8.9 fL (7.4-10.4); Platelet Count 45 10^3/uL (150-450); Red Blood Count 4.34 10^6 /uL (4.18-5.48); Red Cell Distribution Width 17 % (10-15); White Blood Count 4.5 10^3/uL (3.5-10.8)
[2021-10-15 11:59] LABS: Anion Gap 5 mmol/L (2-11); Blood Urea Nitrogen 37 mg/dL (6-24); CO2 Carbon Dioxide 24 mmol/L (22-32); Calcium 8.5 mg/dL (8.6-10.3); Chloride 105 mmol/L (101-111); Glucose 200 mg/dL (70-100); Potassium 4.5 mmol/L (3.5-5.0); Sodium 134 mmol/L (135-145); eGFR CKD-EPI 71.1 (>60)
[2021-10-15 12:25] LABS: Folate > 20.00 ng/mL (5.90-24.80)
[2021-10-15 12:26] LABS: Vitamin B12 1127 pg/mL (180-914)
[2021-10-15] MEDS ORDERED: Furosemide 40 mg/4 ml IV VIAL IV ONE (12:53)
[2021-10-15] MEDS: oxyCODONE SR 10 mg TAB PO PRN (14:56)
[2021-10-15] MEDS ORDERED: Dextrose 50% Syringe 50 ml 25 GM/50 ML SYRINGE IV PUSH PRN (15:35)
[2021-10-15] MEDS ORDERED: Cefepime 1 GM in Dextrose 1 GM/50 ML BAG IV SCH (16:00)
[2021-10-15] MEDS ORDERED: Cefepime 1 GM in Dextrose 1 GM/50 ML BAG IV ONE (23:30)
[2021-10-16] MEDS ORDERED: oxyCODONE SR 15 mg TAB PO ONE (00:37)
[2021-10-16 06:47] LABS: Calcium 8.1 mg/dL (8.6-10.3); Hematocrit 37 % (42-52); Hemoglobin 12.3 g/dL (14.0-18.0); Magnesium 1.7 mg/dL (1.9-2.7); Mean Corpuscular HGB Conc 34 g/dL (31-36); Mean Corpuscular Hemoglobin 30 pg (27-31); Mean Corpuscular Volume 89 fL (80-94); Platelet Count 44 10^3/uL (150-450); Potassium 4.2 mmol/L (3.5-5.0); Red Blood Count 4.08 10^6 /uL (4.18-5.48); Red Cell Distribution Width 16 % (10-15); White Blood Count 4.2 10^3/uL (3.5-10.8)
[2021-10-16] MEDS ORDERED: Magnesium Sulfate IV 3 GM in NS 0.9% 100 ml BAG 100 ML IVPB ONE (07:03)
[2021-10-16] MEDS: Mometasone/Formoter 200/5 MDI INH SCH ×2 (07:56→20:19)
[2021-10-16] MEDS ORDERED: Cefepime 2 GM in Dextrose 2 GM/50 ML BAG IV SCH (08:00)
[2021-10-16] MEDS: Lactulose 30 ml UDC PO SCH ×3 (08:44→19:13)
[2021-10-16] MEDS: oxyCODONE SR 10 mg TAB PO PRN (11:43)
[2021-10-16] MEDS ORDERED: cefTRIAXone 1 gm/50 mL NS BAG 1 GM/50 ML BAG IVPB SCH (14:00)
[2021-10-16] MEDS ORDERED: Meropenem 1 GM PREMIX(*) 1 GM/50 ML BAG IV SCH (14:00)
[2021-10-17] MEDS: oxyCODONE SR 10 mg TAB PO PRN ×3 (01:15→22:26)
[2021-10-17 06:45] LABS: ABS Lymphocytes 0.7 10^3/ul (1.0-4.8); ABS Monocytes 0.4 10^3/ul (0-0.8); ABS Neutrophils 3.7 10^3/ul (1.5-7.7); Hematocrit 37 % (42-52); Hemoglobin 12.5 g/dL (14.0-18.0); Lymphocyte % 15.2 %; Mean Corpuscular HGB Conc 34 g/dL (31-36); Mean Corpuscular Hemoglobin 31 pg (27-31); Mean Corpuscular Volume 90 fL (80-94); Mean Platelet Volume 8.2 fL (7.4-10.4); Platelet Count 45 10^3/uL (150-450); Red Blood Count 4.09 10^6 /uL (4.18-5.48); Red Cell Distribution Width 16 % (10-15); White Blood Count 4.8 10^3/uL (3.5-10.8)
[2021-10-17 07:09] LABS: Magnesium 1.7 mg/dL (1.9-2.7); Potassium 3.9 mmol/L (3.5-5.0); eGFR CKD-EPI 96.4 (>60)
[2021-10-17] MEDS: Mometasone/Formoter 200/5 MDI INH SCH ×2 (07:29→19:01)
[2021-10-17] MEDS ORDERED: Magnesium Sulfate IV 3 GM in NS 0.9% 100 ml BAG 100 ML IVPB ONE (07:46)
[2021-10-17] MEDS ORDERED: Furosemide 40 mg/4 ml IV VIAL IV ONE (09:33)
[2021-10-17] MEDS: Lidocaine PATCH 5% PATCH TRANSDERM SCH (09:42)
[2021-10-17] MEDS: Albuterol HFA INHALER 8 gm MDI INH PRN (10:02)
[2021-10-17] MEDS ORDERED: Cefepime 1 GM in Dextrose 1 GM/50 ML BAG IV SCH (14:00)
[2021-10-17] MEDS: CEFEPIME 2 GM in Dextrose 50 mL IV SCH (14:08)
[2021-10-17 16:37] LABS: % Iron Saturation 12 % (14 - 50); Iron 31 mcg/dL (50 - 150); Total Iron Binding Capacity 258 mcg/dL (250 - 400)
[2021-10-17] MEDS: Lidocaine Patch REMOVE NOTE PATCH OFF SCH (22:30)
[2021-10-18] MEDS: CEFEPIME 2 GM in Dextrose 50 mL IV SCH ×2 (03:33→14:22)
[2021-10-18 06:59] LABS: Calcium 8.3 mg/dL (8.6-10.3); Magnesium 1.7 mg/dL (1.9-2.7); Potassium 3.9 mmol/L (3.5-5.0); eGFR CKD-EPI 98.5 (>60)
[2021-10-18] MEDS: Lidocaine PATCH 5% PATCH TRANSDERM SCH (08:04)
[2021-10-18] MEDS: oxyCODONE SR 10 mg TAB PO PRN ×2 (08:05→21:14)
[2021-10-18] MEDS: Mometasone/Formoter 200/5 MDI INH SCH ×2 (09:05→19:25)
[2021-10-18] MEDS: Albuterol HFA INHALER 8 gm MDI INH PRN (09:06)
[2021-10-18] MEDS: Lidocaine Patch REMOVE NOTE PATCH OFF SCH (21:24)
[2021-10-19] MEDS: CEFEPIME 2 GM in Dextrose 50 mL IV SCH ×2 (01:38→13:25)
[2021-10-19 04:06] VITALS: BP 146/63
[2021-10-19 06:57] LABS: Calcium 8.3 mg/dL (8.6-10.3); Magnesium 1.7 mg/dL (1.9-2.7); eGFR CKD-EPI 98.5 (>60)
[2021-10-19] MEDS: Mometasone/Formoter 200/5 MDI INH SCH (07:46)
[2021-10-19] MEDS ORDERED: Magnesium Sulf 4 GM/100 ML IV 4,000 MG/100 ML BAG IVPB ONE (07:52)
[2021-10-19] MEDS: oxyCODONE SR 10 mg TAB PO PRN (09:32)
[2021-10-19] MEDS: Lidocaine PATCH 5% PATCH TRANSDERM SCH (09:33)
== END 2021-10-19 15:20 | disposition home or self-care (01) | DRG 720 ==
LOC: ED 18:02 → MED 21:53 → SUATTDRO 21:53 → EDHOLD 22:05 → MED 10-14 07:54
PROVIDERS: ADMIT Student in an Organized Health Care Education/Training Program; ATTEND Internal Medicine

== ENCOUNTER 2024-07-02 13:33 | Observation (INO) ==
[2024-07-02 14:47] LABS: ABS Eosinophils 0.1 10^3/uL (0.0-0.5); ABS Lymphocytes 1.2 10^3/uL (1.0-4.8); ABS Monocytes 0.6 10^3/uL (0.0-1.1); ABS Neutrophils 3.9 10^3/uL (1.5-7.6); Eosinophil % 2.4 %; Hematocrit 41.1 % (38-53); Hemoglobin 13.6 g/dL (13.2-16.3); Lymphocyte % 20.1 %; Mean Corpuscular Hemoglobin 29.1 pg (27-33); Mean Corpuscular Volume 88.1 fL (80-97); Mean Platelet Volume 7.4 fL (7.5-11.2); Nucleated Red Blood Cells % 0.1 %/100WBC (0.0-0.8); Platelet Count 121 10^3/uL (150-450); Red Blood Count 4.66 10^6/uL (4.06-5.63); Red Cell Distribution Width 16.5 % (12-17); White Blood Count 5.8 10^3/uL (3.6-10.2)
[2024-07-02 15:02] LABS: Activated Partial Thrombo Time 41.7 seconds (26.0-38.0); INR 2.75 (0.85-1.14)
[2024-07-02 16:03] LABS: Albumin 3.3 g/dL (3.2-5.2); C Reactive Protein 26.93 mg/L (<8.01); Calcium 8.3 mg/dL (8.6-10.3); Creatinine, Serum 0.73 mg/dL (0.67-1.17); Globulin 3.4 g/dL (2-4); Potassium 3.9 mmol/L (3.5-5.0); Total Bilirubin 1.8 mg/dL (0.2-1.0); Total Protein 6.7 g/dL (6.4-8.9); eGFR CKD-EPI 99.7 (>60)
[2024-07-02 16:39] LABS: High Sensitivity Troponin 1 Hr 12 pg/mL (<20)
[2024-07-02] MEDS: Iodixanol (CONTRAST) 320 MG/ML 100 ML SDV IV ONE (20:49)
[2024-07-02] MEDS: Clindamycin 900 MG/D5W BAG 900 MG/50 ML BAG IVPB ONE (20:55)
[2024-07-02] MEDS ORDERED: Vancomycin 2,000 MG in NS 0.9% 250 ml 250 ML IVPB SCH (21:00)
[2024-07-02] MEDS: cefTRIAXone 1 gm/50 mL D5W 1 GM/50 ML BAG IV ONE (21:22)
[2024-07-03] MEDS: Vancomycin 2,000 MG in NS 0.9% 500 ml BAG 500 ML IVPB ONE (00:41)
[2024-07-03] MEDS: cefTRIAXone 1 gm/50 mL D5W 1 GM/50 ML BAG IV ONE (04:42)
[2024-07-03] MEDS ORDERED: Naloxone 0.4 mg VIAL 0.4 mg/ml 1 ml VIAL IV PUSH PRN (05:35)
[2024-07-03 06:16] LABS: ABS Eosinophils 0.1 10^3/uL (0.0-0.5); ABS Lymphocytes 1.2 10^3/uL (1.0-4.8); ABS Monocytes 0.4 10^3/uL (0.0-1.1); ABS Neutrophils 2.9 10^3/uL (1.5-7.6); ABS Nucleated RBC 0.01 10^3/ul; Eosinophil % 2.8 %; Hematocrit 36.5 % (38-53); Lymphocyte % 25.8 %; Mean Corpuscular Hemoglobin 29.2 pg (27-33); Mean Corpuscular Hgb Conc 32.8 g/dL (31-36); Mean Corpuscular Volume 88.8 fL (80-97); Mean Platelet Volume 8.4 fL (7.5-11.2); Nucleated Red Blood Cells % 0.2 %/100WBC (0.0-0.8); Platelet Count 110 10^3/uL (150-450); Red Blood Count 4.11 10^6/uL (4.06-5.63); Red Cell Distribution Width 16.7 % (12-17); White Blood Count 4.6 10^3/uL (3.6-10.2)
[2024-07-03 07:11] LABS: Calcium 7.6 mg/dL (8.6-10.3); Creatinine, Serum 0.68 mg/dL (0.67-1.17); Potassium 4.4 mmol/L (3.5-5.0); eGFR CKD-EPI 101.9 (>60)
[2024-07-03] MEDS: Nitroglycerin 0.4 mg/hr PATCH (10 mg) TRANSDERM SCH (08:39)
[2024-07-03] MEDS: oxyCODONE SR 10 mg TAB PO PRN (08:40)
[2024-07-03] MEDS ORDERED: Vancomycin per Pharmacy 1 EA NOTE FOLLOW UP PRN (14:00)
[2024-07-03] MEDS ORDERED: Lidocaine PATCH 5% PATCH TRANSDERM PRN (14:17)
[2024-07-03] MEDS: Vancomycin 1,750 MG in NS 0.9% 500 ml BAG 500 ML IVPB ONE (16:05)
[2024-07-03] MEDS: Mometasone 220 MCG MDI INH SCH (20:32)
[2024-07-03] MEDS ORDERED: cefTRIAXone 2 gm/50 mL D5W 2 GM/50 ML BAG IV SCH ×2 (21:00)
[2024-07-03] MEDS: Vancomycin 1000 MG in NS 0.9% 250 ML IVPB SCH (23:10)
[2024-07-04 00:33] LABS: High Sensitivity Troponin 1 Hr 8 pg/mL (<20)
[2024-07-04 05:48] LABS: ABS Eosinophils 0.1 10^3/uL (0.0-0.5); ABS Lymphocytes 1.1 10^3/uL (1.0-4.8); ABS Monocytes 0.4 10^3/uL (0.0-1.1); ABS Neutrophils 2.7 10^3/uL (1.5-7.6); ABS Nucleated RBC 0.01 10^3/ul; Eosinophil % 2.9 %; Hematocrit 37.1 % (38-53); Hemoglobin 12.2 g/dL (13.2-16.3); Lymphocyte % 25.9 %; Mean Corpuscular Hemoglobin 29.4 pg (27-33); Mean Corpuscular Volume 89.1 fL (80-97); Nucleated Red Blood Cells % 0.1 %/100WBC (0.0-0.8); Platelet Count 91 10^3/uL (150-450); Red Blood Count 4.16 10^6/uL (4.06-5.63); Red Cell Distribution Width 16.7 % (12-17); White Blood Count 4.4 10^3/uL (3.6-10.2)
[2024-07-04 05:53] LABS: Albumin 2.7 g/dL (3.2-5.2); Albumin/Globulin Ratio 0.9 (1-3); Calcium 7.8 mg/dL (8.6-10.3); Creatinine, Serum 0.69 mg/dL (0.67-1.17); Globulin 3.1 g/dL (2-4); Magnesium 1.7 mg/dL (1.9-2.7); Phosphorus 3.5 mg/dL (2.5-5.0); Potassium 4.4 mmol/L (3.5-5.0); Total Bilirubin 1.5 mg/dL (0.2-1.0); Total Protein 5.8 g/dL (6.4-8.9); eGFR CKD-EPI 101.4 (>60)
[2024-07-04] MEDS: Psyllium PAK PO SCH (08:50)
[2024-07-04] MEDS: Magnesium Sulfate 2 gm BAG 2 GM/50 ML BAG IVPB ONE (10:19)
[2024-07-04 13:49] VITALS: BP 127/66
[2024-07-04] MEDS ORDERED: Vancomycin Trough Check NOTE FOLLOW UP ONE (14:30)
[2024-07-04] MEDS: ceFAZolin 2 GM PREMIX 2 GM/50 ML BAG IVPB SCH (15:34)
== END 2024-07-04 18:05 | disposition home or self-care (01) ==
LOC: EDHOLD 13:33 → ED 13:33 → SUATTDRO 07-03 00:41 → MED 07-03 12:08
PROVIDERS: ADMIT Hospitalist; ATTEND Internal Medicine